=== PATIENT | female | born 1970 | race Caucasian/White ===

== ENCOUNTER 2018-07-27 17:09 | Emergency (ER) | payer OTHER ==
--- NOTE | 2018-07-27 19:07 | RAD REPORT ---
EXAM DESCRIPTION: Isabel Single View07/27/2018 6:19 pm CLINICAL HISTORY: sob COMPARISON: September 2017 FINDINGS: The lungs appear clear of acute infiltrate. The heart is normal size IMPRESSION: No acute abnormalities displayed
[2018-07-27 19:13] LABS: Absolute Monocytes 0.6 K/uL (0.1-1.3); Absolute Neutrophil 5.2 K/uL (1.8-8.0); Basophils % 0.4 % (0-1.3); Eosinophils % 2.2 % (0-4.4); Hematocrit 36.9 % (36.0-45.0); Lymphocytes % 25.3 % (15.3-44.8); MCH 29.6 pg (27.0-35.0); MCV 88.2 fL (80-100); Monocytes % 7.2 % (3.3-12.3); RBC Red Blood Cell Count 4.18 M/uL (3.86-4.86)
[2018-07-27 19:14] LABS: Protime INR 1.1
[2018-07-27 19:16] LABS: ALT/SGPT 15 U/L (12-78); AST/SGOT 19 U/L (15-37); Albumin 4.1 g/dL (3.4-5.0); Alkaline Phosphatase 126 U/L (45-117); BUN Blood Urea Nitrogen 18 mg/dL (7-18); Bicarbonate 24 mmol/L (21-32); Bilirubin Direct < 0.1 mg/dL (0-0.2); Bilirubin Total 0.3 mg/dL (0.2-1.0); Glucose Level 77 mg/dL (74-106); Magnesium 2.3 mg/dL (1.8-2.4); NT PRO-BNP 313 pg/mL (<125); Potassium 3.4 mmol/L (3.5-5.1); Protein, Total 8.2 g/dL (6.4-8.2); Sodium Level 144 mmol/L (136-145); T3 Free 2.24 pg/mL (2.18-3.98); Thyroid Stimulating Hormone 0.475 uIU/mL (0.360-3.740); Troponin (Emerg Dept Use Only) < 0.02 ng/mL (0.0-0.045)
[2018-07-27] MEDS ORDERED: FENTANYL CITR 100 MCG/2 ML ONE (19:51)
[2018-07-27] MEDS ORDERED: POTASSIUM 25 MEQ EFFERV TAB ONE (20:13)
--- NOTE | 2018-07-27 20:27 | EDPHYS ---
Physician Documentation [facility] Name: Betsy Waldron Age: 48 yrs Sex: Female : 1970 Arrival Date: 07/27/2018 Time: 17:11 Bed 15 Private MD: ED Physician Kyle Rowland HPI: 07/27 17:40 This 48 yrs old Female presents to ER via Ambulatory with complaints of cp Dizziness, Shortness Of Breath. 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 - Hysterectomy la1 Historical: - Allergies: 17:18 Avelox; la1 - Home Meds: 17:25 clonazepam 2 mg oral tab 1 tab 4 times a day [Active]; oxycodone 10 mg oral tab 1 tab hb three times a day [Active]; fentanyl 25 mcg/hr Topical pt72 1 patch every 72 hours [Active]; tizanidine 4 mg oral tab 1 tab daily [Active]; - PMHx: 17:18 Bipolar disorder; Depression; Seizures; la1 17:25 Irregular heart rate; Chronic pain; Kidney stones; Endometrosis; hb - PSHx: 17:25 breast surgery; tummy tuck; gastric sleeve; Hysterectomy; back surgery; breast hb implants; Knee surgery; Thigh lift; - Immunization history:: Adult Immunizations up to date. - Social history:: Smoking status: Patient/guardian denies using tobacco. - Ebola Screening: : No symptoms or risks identified at this time. ROS: 17:45 Constitutional: Negative for body aches, chills, fever, poor PO intake. cp 17:45 Eyes: Negative for injury, pain, redness, and discharge. cp Exam: 17:52 Constitutional: The patient appears in no acute distress, alert, awake, cp non-diaphoretic, non-toxic, well developed, well nourished. 17:52 Head/Face: Normocephalic, atraumatic. cp Vital Signs: 17:18 BP 134 / 83; Pulse 85; Resp 16; Temp 97.2; Pulse Ox 98% on R/A; Weight 56.7 kg; Height la1 5 ft. 2 in. (157.48 cm); 18:18 BP 155 / 79; Pulse 70; Resp 18; Pulse Ox 100% on R/A; rb1 19:02 BP 146 / 83 LA Supine; Pulse 75; Resp 13; Pulse Ox 100% on R/A; jb4 19:04 BP 143 / 86 LA Sitting; Pulse 66; Resp 16 S; Pulse Ox 100% on R/A; jb4 19:06 BP 149 / 99 LA Standing; Pulse 82; Resp 18 S; Pulse Ox 99% on R/A; jb4 19:58 BP 136 / 89; Pulse 67; Resp 16; Pulse Ox 100% on R/A; mt 20:30 BP 135 / 86; Pulse 62; Resp 16; Pulse Ox 100% on R/A; jb4 17:18 Body Mass Index 22.86 (56.70 kg, 157.48 cm) la1 MDM: 17:26 Patient medically screened. cp 20:25 Data reviewed: vital signs, nurses notes, lab test result(s), EKG, radiologic studies, cp plain films, I have discussed the patient's presentation/case with the attending Emergency Department Physician; and as a result, I will discharge patient. 07/27 17:44 Order name: Influenza Screen (a \T\ B); Complete Time: 19:46 cp 07/27 19:46 Interpretation: Reviewed. cp 07/27 17:44 Order name: Strep; Complete Time: 19:46 cp 07/27 19:46 Interpretation: Reviewed. 07/27 17:52 Order name: Basic Metabolic Panel; Complete Time: 19:35 cp 07/27 19:35 Interpretation: Normal except: K 3.4; CL 109; GFR 44. cp 07/27 17:52 Order name: CBC with Diff; Complete Time: 19:35 cp 07/27 17:52 Order name: LFT's; Complete Time: 19:35 cp 07/27 19:35 Interpretation: Normal except: ALK 126; GLOB 4.1; A/G 1.0. cp 07/27 17:52 Order name: Magnesium; Complete Time: 19:35 cp 07/27 17:52 Order name: NT PRO-BNP; Complete Time: 19:35 cp 07/27 19:47 Interpretation: Abnormal: NT PRO-BNP 313. cp 07/27 17:52 Order name: PT-INR; Complete Time: 19:35 cp 07/27 17:52 Order name: Troponin (emerg Dept Use Only); Complete Time: 19:35 cp 07/27 18:36 Order name: T3 Free; Complete Time: 19:35 hb 07/27 18:36 Order name: TSH; Complete Time: 19:35 hb 07/27 19:41 Order name: Throat Culture [facility] 07/27 20:39 Order name: Urine Dipstick--Ancillary (enter results) mw2 07/27 20:40 Order name: Urine Dipstick-Ancillary [facility] 07/27 17:52 Order name: XRAY Chest (1 view); Complete Time: 19:35 cp 07/27 17:52 Order name: EKG; Complete Time: 17:52 cp 07/27 17:52 Order name: Cardiac monitoring; Complete Time: 18:06 cp 07/27 17:52 Order name: EKG - Nurse/Tech; Complete Time: 18:45 cp 07/27 17:52 Order name: IV Saline Lock; Complete Time: 18:43 cp 07/27 17:52 Order name: Labs collected and sent; Complete Time: 18:43 cp 07/27 17:52 Order name: O2 Per Protocol; Complete Time: 18:06 cp 07/27 17:52 Order name: O2 Sat Monitoring; Complete Time: 18:06 cp 07/27 17:53 Order name: Orthostatics; Complete Time: 19:31 cp 07/27 17:53 Order name: Urine Dipstick-Ancillary (obtain specimen); Complete Time: 20:47 cp Administered Medications: 18:51 Not Given (Patient Refused): Tylenol 650 mg PO once rb1 19:59 Drug: fentaNYL (PF) 25 mcg Route: IVP; Site: right wrist; jb4 20:05 Drug: Potassium Effervescent Tablet 25 mEq Route: PO; jb4 Disposition: 07/28 06:30 Co-signature as Attending Physician, Kyle Rowland MD. pkl Disposition: 07/27/18 20:26 Discharged to Home. Impression: Acute upper respiratory infection, unspecified, Shortness of breath. - Condition is Stable. - Discharge Instructions: Shortness of Breath, Upper Respiratory Infection, Adult. - Prescriptions for Tessalon Perles 100 mg Oral Capsule - take 1 capsule by ORAL route every 8 hours As needed; 15 capsule. Albuterol Sulfate 90 mcg/actuation - inhale 1-2 puff by INHALATION route every 4-6 hours; 1 Inhaler. - Medication Reconciliation Form, Thank You Letter, Antibiotic Education, Prescription Opioid Use form. - Follow up: Kvng Patricio MD; When: 07/31/2018; Reason: Recheck today's complaints. - Problem is an ongoing problem. - Symptoms have improved. Signatures: Dispatcher [employer] Kyle Greenwood MD MD pkl Attema, Lee RN RN la1 Aydin Núñez PA PA cp Christel Saldana, RN RN Glenn Noel RN RN jb4 Saar Rodas RN rb1 Corrections: (The following items were deleted from the chart) 07/27 19:38 17:53 Urine Test ordered. cp jb4 20:27 20:26 07/27/2018 20:26 Discharged to Home. Impression: Acute upper respiratory cp infection, unspecified. Condition is Stable. Forms are Medication Reconciliation Form, Thank You Letter, Antibiotic Education, Prescription Opioid Use. Follow up: Kvng Patricio; When: 07/31/2018; Reason: Recheck today's complaints. Problem is an ongoing problem. Symptoms have improved. cp 20:47 20:27 07/27/2018 20:26 Discharged to Home. Impression: Acute upper respiratory jb4 infection, unspecified; Shortness of breath. Condition is Stable. Discharge Instructions: Upper Respiratory Infection, Adult. Prescriptions for Tessalon Perles 100 mg Oral Capsule - take 1 capsule by ORAL route every 8 hours As needed; 15 capsule, Albuterol Sulfate 90 mcg/actuation - inhale 1-2 puff by INHALATION route every 4-6 hours; 1 Inhaler. and Forms are Medication Reconciliation Form, Thank You Letter, Antibiotic Education, Prescription Opioid Use. Follow up: Kvng Patricio; When: 07/31/2018; Reason: Recheck today's complaints. Problem is an ongoing problem. Symptoms have improved. cp
--- NOTE | 2018-07-27 20:27 | ER ---
Nurse's Notes [facility] Name: Betsy Waldron Age: 48 yrs Sex: Female : 1970 Arrival Date: 07/27/2018 Time: 17:11 Bed 15 Private MD: Diagnosis: Acute upper respiratory infection, unspecified;Shortness of breath Presentation: 07/27 17:17 Presenting complaint: Patient states: I feel like I have no energy and I feel SOB, My la1 resting HR is in the 40s sometimes and I have a halter monitor on now. Transition of care: patient was received from another setting of care (hospital). Onset of symptoms was July 27, 2018. Risk Assessment: Do you want to hurt yourself or someone else? Patient reports no desire to harm self or others. Initial Sepsis Screen: Does the patient meet any 2 criteria? No. Patient's initial sepsis screen is negative. Does the patient have a suspected source of infection? No. Patient's initial sepsis screen is negative. Care prior to arrival: None. 17:17 Method Of Arrival: Ambulatory la1 17:17 Acuity: MORA 3 la1 Triage Assessment: 17:25 Respiratory: the patient has mild shortness of breath. 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 la1 Historical: - Allergies: 17:18 Avelox; la1 - Home Meds: 17:25 clonazepam 2 mg oral tab 1 tab 4 times a day [Active]; oxycodone 10 mg oral tab 1 tab hb three times a day [Active]; fentanyl 25 mcg/hr Topical pt72 1 patch every 72 hours [Active]; tizanidine 4 mg oral tab 1 tab daily [Active]; - PMHx: 17:18 Bipolar disorder; Depression; Seizures; la1 17:25 Irregular heart rate; Chronic pain; Kidney stones; Endometrosis; hb - PSHx: 17:25 breast surgery; tummy tuck; gastric sleeve; Hysterectomy; back surgery; breast hb implants; Knee surgery; Thigh lift; - Immunization history:: Adult Immunizations up to date. - Social history:: Smoking status: Patient/guardian denies using tobacco. - Ebola Screening: : No symptoms or risks identified at this time. Screenin:25 Abuse screen: Denies threats or abuse. Nutritional screening: No deficits noted. hb Tuberculosis screening: No symptoms or risk factors identified. Fall Risk None identified. Assessment: 17:25 General: Appears in no apparent distress. comfortable, Behavior is calm, cooperative, hb Denies fever. General: Pt. had center chest pain earlier today, but denies having pain at this time. Pain: Denies pain. Neuro: Level of Consciousness is awake, alert, obeys commands, Oriented to person, place, time, situation. Neuro: Reports dizziness, weakness. Cardiovascular: Rhythm is sinus rhythm. Respiratory: Reports shortness of breath at rest cough that is non-productive, Airway is patent Respiratory effort is even, unlabored, Respiratory pattern is regular, symmetrical, Breath sounds are clear bilaterally. GI: No signs and/or symptoms were reported involving the gastrointestinal system. : No signs and/or symptoms were reported regarding the genitourinary system. Derm: Skin is pink, warm \T\ dry. Musculoskeletal: Range of motion: intact in all extremities. 17:25 Cardiovascular: Reports Pt. is currently wearing a heart halter ordered by Dr. Patricio. hb 18:20 Reassessment: Patient appears in no apparent distress at this time. Patient and/or rb1 family updated on plan of care and expected duration. Pain level reassessed. Patient is alert, oriented x 3, equal unlabored respirations, skin warm/dry/pink. at bedside. 19:00 Reassessment: Patient appears in no apparent distress at this time. Patient and/or jb4 family updated on plan of care and expected duration. Pain level reassessed. Patient is alert, oriented x 3, equal unlabored respirations, skin warm/dry/pink. Cardiovascular: Patient's skin is warm and dry. Respiratory: Airway is patent Respiratory effort is even, unlabored, Respiratory pattern is regular, symmetrical. 20:00 Reassessment: Patient appears in no apparent distress at this time. Patient and/or jb4 family updated on plan of care and expected duration. Pain level reassessed. Patient is alert, oriented x 3, equal unlabored respirations, skin warm/dry/pink. Vital Signs: 17:18 BP 134 / 83; Pulse 85; Resp 16; Temp 97.2; Pulse Ox 98% on R/A; Weight 56.7 kg; Height la1 5 ft. 2 in. (157.48 cm); 18:18 BP 155 / 79; Pulse 70; Resp 18; Pulse Ox 100% on R/A; rb1 19:02 BP 146 / 83 LA Supine; Pulse 75; Resp 13; Pulse Ox 100% on R/A; jb4 19:04 BP 143 / 86 LA Sitting; Pulse 66; Resp 16 S; Pulse Ox 100% on R/A; jb4 19:06 BP 149 / 99 LA Standing; Pulse 82; Resp 18 S; Pulse Ox 99% on R/A; jb4 19:58 BP 136 / 89; Pulse 67; Resp 16; Pulse Ox 100% on R/A; mt 20:30 BP 135 / 86; Pulse 62; Resp 16; Pulse Ox 100% on R/A; jb4 17:18 Body Mass Index 22.86 (56.70 kg, 157.48 cm) la1 ED Course: 17:11 Patient arrived in ED. as 17:18 Triage completed. la1 17:18 Arm band placed on right wrist. la1 17:25 Patient has correct armband on for positive identification. Bed in low position. Call hb light in reach. Side rails up X 1. tree farmer on. Pulse ox on. NIBP on. Warm blanket given. 17:26 Aydin Núñez PA is PHCP. cp 17:26 Mani Jacinto MD is Attending Physician. cp 17:42 Christel Saldana RN is Primary Nurse. hb 18:19 XRAY Chest (1 view) In Process Unspecified. EDMS 18:45 EKG done, by ED staff, reviewed by Mani Jacinto MD. ds4 19:00 Report given to FLETCHER Hudson. rb1 19:47 Kyle Rowland MD is Attending Physician. cp 20:25 Kvng Patricio MD is Referral Physician. cp 20:30 No provider procedures requiring assistance completed. IV discontinued, intact, jb4 bleeding controlled. Administered Medications: 18:51 Not Given (Patient Refused): Tylenol 650 mg PO once rb1 19:59 Drug: fentaNYL (PF) 25 mcg Route: IVP; Site: right wrist; jb4 20:05 Drug: Potassium Effervescent Tablet 25 mEq Route: PO; jb4 Outcome: 20:26 Discharge ordered by . cp 20:30 Discharged to home ambulatory. jb4 20:30 Condition: stable 20:30 Discharge instructions given to patient, family, Instructed on discharge instructions, follow up and referral plans. medication usage, Demonstrated understanding of instructions, follow-up care, medications, Prescriptions given X 2. 20:47 Patient left the ED. jb4 Signatures: Dispatcher [employer] EDLaurie Rowe Donovan ds4 Emigdio Mendoza, RN RN la1 Aydin Núñez PA PA cp Barber, Rebecca, RN RN rb1 Christel Saldana RN RN Glenn Noel RN RN jb4 Lary Acevedo ma
[2018-07-27 21:25] VITALS: TEMP 97.2
[2018-07-27 21:31] LABS: Urine Blood NEGATIVE (NEG); Urine Glucose NEGATIVE (NEG); Urine Protein NEGATIVE (NEG); Urine Specific Gravity <1.005 (1.005-1.030); Urine pH 5.5 (5.0-7.0)
[2018-07-27 21:32] VITALS: BP 136/89; O2SAT 100
--- NOTE | 2018-07-28 06:06 | EKG ---
Test Date: 2018-07-27 Test Time: 18:40:29 Sales Support Specialist: EMY MEASUREMENT RESULTS: Intervals: Rate: 61 TN: 182 QRSD: 98 QT: 430 QTc: 432 [place]: P: 51 TN: 182 QRS: 61 T: 41 INTERPRETIVE STATEMENTS: Normal sinus rhythm T wave abnormality, consider anterior ischemia Abnormal ECG Compared to ECG 10/04/2017 21:51:42 T-wave abnormality now present Possible ischemia now present Prolonged QT interval no longer present Electronically Signed On 07-28-18 06:06:03 BUNCHER MACHINE by Maurisio Clark
== END 2018-07-27 20:47 | disposition home or self-care (01) ==
LOC: ER 17:09
DX: J06.9 Acute upper respiratory infection, unspecified (principal); F31.9 Bipolar disorder, unspecified; F32.9 Major depressive disorder, single episode, unspecified; Z88.8 Allergy status to other drugs, medicaments and biological substances; Z98.82 Breast implant status
CPT/HCPCS: 36415; 71045; 80048; 80076; 81003; 83735; 83880; 84443; 84481; 84484; 85025; 85610; 87070; 87081; 87804; 93005; 96374; 99284; J3010

== ENCOUNTER 2018-08-08 09:11 | Day surgery (SDC) | payer OTHER ==
[2018-08-07 14:43] LABS: Protime INR 1.16
[2018-08-08] MEDS ORDERED: NA CHLORIDE 0.9% 500 ML ONE (09:45)
[2018-08-08] MEDS ORDERED: HEPA 1000U/500MLS 1,000 UNIT/500 ML BAG IV ONE ×2 (12:43→12:59)
[2018-08-08] MEDS ORDERED: ATROPINE SULF 1 MG/10 ML SYR IV ONE (12:58)
[2018-08-08] MEDS ORDERED: MIDAZOLAM HCL 2 MG/2 ML INJ ONE ×3 (12:58→13:25)
[2018-08-08] MEDS ORDERED: FENTANYL CITR 100 MCG/2 ML ONE ×2 (12:58→13:28)
[2018-08-08] MEDS ORDERED: NA CHLORIDE 0.9% 0 ML ONE (12:59)
[2018-08-08] MEDS ORDERED: MORPHINE 4 MG/ML SYR ONE (13:55)
[2018-08-08] MEDS ORDERED: HYDROMORPHONE HCL 1 MG/ML INJ ONE (15:04)
[2018-08-08 15:05] VITALS: TEMP 97.3
[2018-08-08 15:19] VITALS: BP 136/73
[2018-08-08 15:26] VITALS: O2SAT 90
--- NOTE | 2018-08-09 00:21 | OP ---
Surgeon: Kvng Patricio MD Dress Finisher: Мария Huggins. Total conscious sedation was 30 minutes. The patient was admitted as an outpatient to the catheterization lab on 08/08/2018. Indication: Syncope, unstable angina type of symptoms. Description Of Procedure: The patient had a 6-Argentine sheath introduced in the right common femoral a rtery. She had 150 mg of fentanyl and 12 mg of Versed for sedation, and that was only mild conscious sedation. The 6-Argentine catheters were used to do the diagnostic catheterization. She was found to have normal coronaries. No complications. Blood Loss: 5 cc. Postoperative Diagnoses: 1.Normal coronaries. 2.Syncope, possibly secondary to bradycardia. Plan: Plan is to continue her medical therapy. A peer referral for possible pacemaker. ALANNA/AD Voice ID: [id number] Report ID: [id number]
== END 2018-08-08 15:25 | disposition home or self-care (01) ==
LOC: CCL 09:11
PROC: B201YZZ Plain Radiography of Multiple Coronary Arteries using Other Contrast (ICD-10-PCS; principal; 2018-08-08)
DX: I20.0 Unstable angina (principal); R00.1 Bradycardia, unspecified; R55 Syncope and collapse
CPT/HCPCS: 36415; 85610; 85730; 93454; C1760; C1893; J0583; J1170; J2250; J3010

== ENCOUNTER 2019-07-25 22:38 | Emergency (ER) | payer OTHER, SELFPAY ==
[2019-07-25] MEDS ORDERED: LIDOCAINE VISCOUS 2% SOLN 15 ML UDC ONE (23:18)
[2019-07-26] MEDS ORDERED: HYDROCODONE/APAP 10/325 TAB ONE (00:53)
[2019-07-26 01:08] LABS: Calcium Oxalate Crystals- Ur MODERATE (NONE SEEN); Urine Bacteria <20 /HPF (<20); Urine Culture Reflex Order NOT NEEDED
--- NOTE | 2019-07-26 01:24 | ER ---
Nurse's Notes [facility] Name: Betsy Waldron Age: 49 yrs Sex: Female : 1970 Arrival Date: 07/25/2019 Time: 22:42 Bed 18 Private MD: Diagnosis: Urinary tract infection, site not specified;Vaginal fissure Presentation: 07/25 22:45 Presenting complaint: Patient states: "Since yesterday I've been having bright red cc3 vaginal bleeding and suprapubic pain". Transition of care: patient was not received from another setting of care. Onset of symptoms was July 24, 2019. Risk Assessment: Do you want to hurt yourself or someone else? Patient reports no desire to harm self or others. Initial Sepsis Screen: Does the patient meet any 2 criteria? No. Patient's initial sepsis screen is negative. Does the patient have a suspected source of infection? No. Patient's initial sepsis screen is negative. Care prior to arrival: Medication(s) given: Fentanyl patch on her left inner thigh which she put today. 22:45 Method Of Arrival: Ambulatory cc3 22:45 Acuity: MORA 3 cc3 Triage Assessment: 22:45 General: Appears in no apparent distress. comfortable, Behavior is calm, cooperative, cc3 appropriate for age. Pain: Complains of pain in suprapubic area Pain currently is 9 out of 10 on a pain scale. Quality of pain is described as aching, Pain began 1 day ago. EENT: No signs and/or symptoms were reported regarding the EENT system. Neuro: Level of Consciousness is awake, alert, obeys commands, Oriented to person, place, time, situation, Appropriate for age. Cardiovascular: Denies chest pain, Heart tones S1 S2 present Capillary refill < 3 seconds in bilateral fingers Patient's skin is warm and dry. Respiratory: Airway is patent Respiratory effort is even, unlabored, Respiratory pattern is regular, symmetrical, Breath sounds are clear bilaterally. GI: Abdomen is flat, Bowel sounds present X 4 quads. Abd is soft and non tender X 4 quads. : Reports vaginal bleeding that is bright red, since yesterday. Derm: Skin is intact, is healthy with good turgor, Skin is pink, warm \\T\\ dry. normal. Musculoskeletal: Circulation, motion, and sensation intact. Range of motion: intact in all extremities. 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 - Social history:: Smoking status: Patient/guardian denies using tobacco, never smoked. - Ebola Screening: : No symptoms or risks identified at this time. Screenin:45 Abuse screen: Denies threats or abuse. Denies injuries from another. Nutritional cc3 screening: No deficits noted. Tuberculosis screening: No symptoms or risk factors identified. Fall Risk Ambulatory Aid- None/Bed Rest/Nurse Assist (0 pts). Gait- Normal/Bed Rest/Wheelchair (0 pts) Mental Status- Oriented to own ability (0 pts). Assessment: 22:45 General: see triage assessment. Checked the patient's vaginal bleeding and no bleeding cc3 as of the moment, only minimal spots of blood on the patient's sanitary napkin noted. 23:25 Reassessment: Patient appears in no apparent distress at this time. Patient and/or cc3 family updated on plan of care and expected duration. Pain level reassessed. Patient is alert, oriented x 3, equal unlabored respirations, skin warm/dry/pink. Patient taken to ultrasound department by the cadd technician by wheelchair. 23:49 Reassessment: Patient came back from ultrasound department, awaiting result. cc3 07/26 00:31 Reassessment: Patient appears in no apparent distress at this time. Patient and/or cc3 family updated on plan of care and expected duration. Pain level reassessed. Patient is alert, oriented x 3, equal unlabored respirations, skin warm/dry/pink. 01:50 Reassessment: Patient appears in no apparent distress at this time. Patient and/or cc3 family updated on plan of care and expected duration. Pain level reassessed. Patient is alert, oriented x 3, equal unlabored respirations, skin warm/dry/pink. LAMBERTO Pina discharged the patient home with prescription given. No IV cannula in situ. Patient left ER vitally stable and ambulatory. No valuables left in the patient's room. Patient denies pain at this time. Patient states feeling better. Patient states symptoms have improved. Vital Signs: 07/25 22:45 BP 153 / 103; Pulse 93; Resp 18 S; Temp 98.4(O); Pulse Ox 99% on R/A; Pain 8/10; cc3 23:00 BP 128 / 75; Pulse 78; Resp 18 S; Pulse Ox 99% on R/A; cc3 07/26 00:24 BP 174 / 86; Pulse 88; Resp 20 S; Pulse Ox 100% on R/A; cc3 00:45 BP 149 / 76; Pulse 71; Resp 16 S; Pulse Ox 98% on R/A; cc3 01:40 BP 131 / 60; Pulse 68; Resp 18 S; Pulse Ox 98% on R/A; Pain 5/10; cc3 ED Course: 07/25 22:42 Patient arrived in ED. cl3 22:45 Patient has correct armband on for positive identification. Placed in gown. Bed in low cc3 position. Call light in reach. Side rails up X2. Pulse ox on. NIBP on. 22:45 Arm band placed on right wrist. Patient notified of wait time. cc3 22:51 [facility] Bateman [facility]-C [facility]. snw 22:51 Aydin Lopez MD is Attending Physician. snw 22:55 Mary Rivera is Primary Nurse. cc3 23:42 US Transvaginal Study (Probe) In Process Unspecified. EDMS 23:47 Triage completed. cc3 07/26 01:50 No provider procedures requiring assistance completed. Patient did not have IV access cc3 during this emergency room visit. Administered Medications: 07/25 23:30 Drug: Viscous Lidocaine Liquid (4 %) 10 ml {Note: done by chemistry quality control technician.} cc3 Route: Mucous Membrane; 07/26 00:50 Drug: Rocky 10 mg-325 mg 1 tabs {Note: RASS 0.} Route: PO; cc3 01:30 Follow up: Response: No adverse reaction; Pain is decreased; RASS: Alert and Calm (0) cc3 01:34 Drug: Rocephin (cefTRIAXone) 1 grams Route: IM; Site: left gluteus; 01:50 Follow up: Response: No adverse reaction cc3 Outcome: 01:23 Discharge ordered by . snterese 01:50 Discharged to home ambulatory. cc3 01:50 Condition: stable 01:50 Discharge instructions given to patient, Instructed on discharge instructions, follow up and referral plans. medication usage, Demonstrated understanding of instructions, follow-up care, medications, Prescriptions given X 1. 01:56 Patient left the ED. cc3 Addendum: 07/30/2019 08:49 Addendum: Culture Results: Positive urine culture. Bacteria is resistant to, has i w intermediate sensitivity, or is not tested against prescribed antibiotics. Report given to SALEEM for further evaluation and then to corporate claims examiner for follow up with patient. Phone call Attempt #1 phone is disconnected Certified letter sent to listed address for patient. Signatures: Dispatcher Glimpse EDMS Silvana Bateman, FELTMAKER-C FELTMAKER-Csnw Vanessa Barnes, Nay Falcon RN, Charlene cc3 Ally Lees cl3 Corrections: (The following items were deleted from the chart) 07/26 02:07 11 22:45 BP 153 / 103; Pulse 93bpm; Resp 18bpm; Spontaneous; Pulse Ox 99% RA; Temp cc3 98.4F Oral; cc3
--- NOTE | 2019-07-26 01:24 | EDPHYS ---
Physician Documentation [facility] Name: Betsy Waldron Age: 49 yrs Sex: Female : 1970 Arrival Date: 07/25/2019 Time: 22:42 Bed 18 Private MD: Aydin Hays HPI: 07/26 00:14 This 49 yrs old Female presents to ER via Ambulatory with complaints of snw Vaginal Bleeding, Back Pain. 00:14 The patient presents with vaginal bleeding that is light. Onset: The symptoms/episode snw began/occurred suddenly, yesterday. Associated signs and symptoms: Pertinent positives: cramping. Severity of symptoms: At their worst the symptoms were severe. The patient is not sexually active. The patient has not experienced similar symptoms in the past. It is unknown whether or not the patient has recently seen a physician. pt with chronic constipation second to pain med use, splinting to have bowel movement yesterday and pt used fingernail, several inches long, to push stool out, + small amt bright red bleeding today, stinging pain. 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 - Social history:: Smoking status: Patient/guardian denies using tobacco, never smoked. - Ebola Screening: : No symptoms or risks identified at this time. ROS: 07/26 00:14 Constitutional: Negative for fever, chills, and weight loss, Eyes: Negative for injury, snw pain, redness, and discharge, ENT: Negative for injury, pain, and discharge, Neck: Negative for injury, pain, and swelling, Cardiovascular: Negative for chest pain, palpitations, and edema, Respiratory: Negative for shortness of breath, cough, wheezing, and pleuritic chest pain, Abdomen/GI: Negative for abdominal pain, nausea, vomiting, diarrhea, and constipation, Back: Negative for injury and pain, MS/Extremity: Negative for injury and deformity, Skin: Negative for injury, rash, and discoloration, Neuro: Negative for headache, weakness, numbness, tingling, and seizure, Psych: Negative for depression, anxiety, suicide ideation, homicidal ideation, and hallucinations. : Positive for pelvic pain, vaginal bleeding. Exam: 00:13 Head/Face: Normocephalic, atraumatic. Eyes: Pupils equal round and reactive to light, snw extra-ocular motions intact. Lids and lashes normal. Conjunctiva and sclera are non-icteric and not injected. Cornea within normal limits. Periorbital areas with no swelling, redness, or edema. ENT: Nares patent. No nasal discharge, no septal abnormalities noted. Tympanic membranes are normal and external auditory canals are clear. Oropharynx with no redness, swelling, or masses, exudates, or evidence of obstruction, uvula midline. Mucous membranes moist. Neck: Trachea midline, no thyromegaly or masses palpated, and no cervical lymphadenopathy. Supple, full range of motion without nuchal rigidity, or vertebral point tenderness. No Meningismus. Chest/axilla: Normal chest wall appearance and motion. Nontender with no deformity. No lesions are appreciated. Cardiovascular: Regular rate and rhythm with a normal S1 and S2. No gallops, murmurs, or rubs. Normal PMI, no JVD. No pulse deficits. Respiratory: Lungs have equal breath sounds bilaterally, clear to auscultation and percussion. No rales, rhonchi or wheezes noted. No increased work of breathing, no retractions or nasal flaring. Abdomen/GI: Soft, non-tender, with normal bowel sounds. No distension or tympany. No guarding or rebound. No evidence of tenderness throughout. 00:13 Pelvic Exam: Normal external genitalia. scant bleeding 00:13 Skin: Warm, dry with normal turgor. Normal color with no rashes, no lesions, and no evidence of cellulitis. MS/ Extremity: Pulses equal, no cyanosis. Neurovascular intact. Full, normal range of motion. Neuro: Awake and alert, GCS 15, oriented to person, place, time, and situation. Cranial nerves II-XII grossly intact. Motor strength 5/5 in all extremities. Sensory grossly intact. Cerebellar exam normal. Normal gait. 00:13 Constitutional: The patient appears alert, awake, restless. 00:13 Back: pain, that is moderate, of the lumbar area, left low back and right low back. 00:13 Psych: Behavior/mood is anxious, Affect is animated. Vital Signs: 07/25 22:45 BP 153 / 103; Pulse 93; Resp 18 S; Temp 98.4(O); Pulse Ox 99% on R/A; Pain 8/10; cc3 23:00 BP 128 / 75; Pulse 78; Resp 18 S; Pulse Ox 99% on R/A; cc3 07/26 00:24 BP 174 / 86; Pulse 88; Resp 20 S; Pulse Ox 100% on R/A; cc3 00:45 BP 149 / 76; Pulse 71; Resp 16 S; Pulse Ox 98% on R/A; cc3 01:40 BP 131 / 60; Pulse 68; Resp 18 S; Pulse Ox 98% on R/A; Pain 5/10; cc3 MDM: 07/25 22:58 Patient medically screened. [facility] 07/26 01:24 Data reviewed: vital signs, nurses notes. Data interpreted: Pulse oximetry: on room air snw is 100 %. Interpretation: normal. Counseling: I had a detailed discussion with the patient and/or guardian regarding: the historical points, exam findings, and any diagnostic results supporting the discharge/admit diagnosis, the presence of at least one elevated blood pressure reading (>120/80) during this emergency department visit, lab results, the need for outpatient follow up, to return to the emergency department if symptoms worsen or persist or if there are any questions or concerns that arise at home. Special discussion: I have referred the patient to see his PCP for further evaluation of high blood pressure. Based on the history and exam findings, there is no indication for further emergent testing or inpatient evaluation. I discussed with the patient/guardian the need to see the primary care provider for further evaluation of the symptoms. 07/25 23:52 Order name: Urine Culture snw 07/25 23:52 Order name: Urine Microscopic Only; Complete Time: 01:21 snw 07/25 23:16 Order name: US Transvaginal Study (Probe) snw 07/26 01:06 Order name: Urine Dipstick--Ancillary (enter results); Complete Time: 02:54 sp 07/26 01:06 Order name: Test Urine - POC; Complete Time: 02:54 sp 07/25 23:52 Order name: Urine Dipstick-Ancillary (obtain specimen); Complete Time: 00:30 snw Administered Medications: 07/25 23:30 Drug: Viscous Lidocaine Liquid (4 %) 10 ml {Note: done by apprentice technician.} cc3 Route: Mucous Membrane; 07/26 00:50 Drug: [place] 10 mg-325 mg 1 tabs {Note: RASS 0.} Route: PO; cc3 01:30 Follow up: Response: No adverse reaction; Pain is decreased; RASS: Alert and Calm (0) cc3 01:34 Drug: Rocephin (cefTRIAXone) 1 grams Route: IM; Site: left gluteus; 01:50 Follow up: Response: No adverse reaction cc3 Disposition: 04:22 Co-signature as Attending Physician, Aydin Lopez MD I agree with the assessment and alize plan of care. Disposition: 07/26/19 01:23 Discharged to Home. Impression: Urinary tract infection, site not specified, Vaginal fissure. - Condition is Stable. - Discharge Instructions: Back Pain, Adult, Urinary Tract Infection, Adult, Dietary Guidelines to Help Prevent Kidney Stones, Rehydration, Adult. - Prescriptions for Augmentin 875- 125 mg Oral Tablet - take 1 tablet by ORAL route every 12 hours for 10 days; 20 tablet. - Medication Reconciliation Form, Thank You Letter, Antibiotic Education, Prescription Opioid Use form. - Follow up: Private Physician; When: 2 - 3 days; Reason: Recheck today's complaints, Continuance of care, Re-evaluation by your physician. Follow up: Emergency Department; When: As needed; Reason: Worsening of condition. Signatures: Dispatcher [employer] Aydin Jay MD MD cha Therrien, Shelly, PAINTER TOUCH UP-C PAINTER TOUCH UP-Wyattw Nay Aponte Mary Rivera cc3 Corrections: (The following items were deleted from the chart) 01:56 01:23 07/26/2019 01:23 Discharged to Home. Impression: Urinary tract infection, site cc3 not specified; Vaginal fissure. Condition is Stable. Forms are Medication Reconciliation Form, Thank You Letter, Antibiotic Education, Prescription Opioid Use. Follow up: Private Physician; When: 2 - 3 days; Reason: Recheck today's complaints, Continuance of care, Re-evaluation by your physician. Follow up: Emergency Department; When: As needed; Reason: Worsening of condition. snw
[2019-07-26] MEDS ORDERED: CEFTRIAXONE 1000 MG/VIAL ONE (01:27)
[2019-07-26] MEDS ORDERED: WATER FOR INJ,STERILE 10 ML ONE (01:27)
[2019-07-26 01:36] LABS: Urine Blood 2+ (NEG); Urine Glucose NEGATIVE (NEG); Urine Protein TRACE (NEG); Urine Specific Gravity >1.030 (1.005-1.030); Urine pH 5.5 (5.0-7.0)
[2019-07-26 02:10] VITALS: TEMP 98.4
[2019-07-26 02:12] VITALS: BP 174/86; O2SAT 100
--- NOTE | 2019-07-26 11:10 | RAD REPORT ---
EXAM DESCRIPTION: US - Transvaginal Study Probe - 07/25/2019 11:41 pm CLINICAL HISTORY: Vaginal bleeding COMPARISON: none FINDINGS: A hysterectomy has been performed Neither ovary visualized. The right and left adnexum unremarkable. No significant free fluid is seen. IMPRESSION: Hysterectomy No abnormality is displayed
== END 2019-07-26 01:56 | disposition home or self-care (01) ==
LOC: ER 22:38
DX: N39.0 Urinary tract infection, site not specified (principal); N89.8 Other specified noninflammatory disorders of vagina; Z88.8 Allergy status to other drugs, medicaments and biological substances; G89.29 Other chronic pain; R56.9 Unspecified convulsions
CPT/HCPCS: 76830; 81003; 81015; 81025; 87077; 87086; 87088; 87186; 96372; 99284

== ENCOUNTER 2020-06-02 17:43 | Emergency (ER) | payer MEDICARE, OTHER ==
[2020-06-02] MEDS ORDERED: LORazepam 2 MG/ML VIAL ONE (18:44)
[2020-06-02] MEDS ORDERED: ONDANSETRON 4 MG/2 ML VIAL ONE (18:44)
[2020-06-02] MEDS ORDERED: MORPHINE 4 MG/ML SYR ONE (18:44)
[2020-06-02 18:59] LABS: Basophils % 0.5 % (0-1.3); Hematocrit 35.1 % (36.0-45.0); Lymphocytes % 38.4 % (15.3-44.8); MPV 9.6 fL (7.6-11.3); RBC Red Blood Cell Count 4.01 M/uL (3.86-4.86)
[2020-06-02 19:16] LABS: Albumin 3.8 g/dL (3.4-5.0); Bilirubin Direct 0.1 mg/dL (0-0.2); Bilirubin Total 0.4 mg/dL (0.2-1.0); Potassium 3.5 mmol/L (3.5-5.1); Protein, Total 7.9 g/dL (6.4-8.2)
--- NOTE | 2020-06-02 19:33 | RAD REPORT ---
EXAM DESCRIPTION: CTAbdomen Pelvis W Contrast - 06/02/2020 7:02 pm CLINICAL HISTORY: Abdominal pain. lower abdominal pain, rectal bleeding COMPARISON: CT ABD PELVIS W CONTRAST dated 04/10/2015; CT ABD PELVIS W CONTRAST dated 06/25/2014; CT A BD PELVIS W CONTRAST dated 10/07/2012 TECHNIQUE: Biphasic CT imaging of the abdomen and pelvis was performed with 100 ml non-ionic IV cont rast. All CT scans are performed using dose optimization technique as appropriate and may include automated exposure control or mA/KV adjustment according to patient size. FINDINGS: The lung bases are clear.Postsurgical changes are present about the stomach and gastroesop hageal junction. Cholecystectomy clips. The liver, spleen, pancreas, adrenal glands and kidneys are within normal limits. No bowel obstruction, free air, free fluid or abscess. Significant fecal retention is noted. The appe ndix is normal. No evidence of significant lymphadenopathy. Postsurgical hardware is present lower lumbar spine. IMPRESSION: No acute intra-abdominal or pelvic finding. Significant fecal retention.
[2020-06-02 20:04] LABS: Urine Blood NEGATIVE (NEG); Urine Glucose NEGATIVE (NEG); Urine Protein NEGATIVE (NEG); Urine pH 5.5 (5.0-7.0)
[2020-06-02] MEDS ORDERED: FENTANYL CITR 100 MCG/2 ML ONE (20:15)
[2020-06-02] MEDS ORDERED: HYDROMORPHONE HCL 0.5 MG/0.5 ML INJ ONE (20:20)
--- NOTE | 2020-06-02 20:38 | EDPHYS ---
Physician Documentation [facility] Name: Betsy Waldron Age: 49 yrs Sex: Female : 1970 Arrival Date: 06/02/2020 Time: 17:47 Bed 19 Private MD: ED Physician Torrey Wooten HPI: 06/02 18:00 This 49 yrs old Female presents to ER via Ambulatory with complaints of jmm Abdominal Pain, Low Back Pain, Bloody Stools. 18:00 The patient presents with abdominal pain. Onset: The symptoms/episode began/occurred jmm acutely, just prior to arrival. The symptoms radiate to Associated signs and symptoms: Pertinent positives: constipation, Pertinent negatives: fever, vomiting. This is a 49 year old female with a history of chronic pain that presents to the ED with complaints of lower abdominal pain which radiates to her rectum with a small amount of rectal bleeding. Patient states she has been chronically constipated and this occurred while performing a bowel movement. . 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 N/A - Hysterectomy iw Historical: - Allergies: 18:02 Avelox; iw 18:02 Trazodone; iw 18:02 Azithromycin; iw - Home Meds: 18:02 clonazepam 2 mg Oral tab 1 tab 4 times a day [Active]; fentanyl 25 mcg/hr Topical pt72 iw 1 patch every 72 hours [Active]; oxycodone 10 mg Oral tab 1 tab three times a day [Active]; tizanidine 4 mg Oral tab 1 tab daily [Active]; - PMHx: 18:02 Bipolar disorder; Chronic pain; Depression; Endometrosis; Irregular heart rate; Kidney iw stones; Seizures; breast implant illness; - PSHx: 18:02 Hysterectomy; breast augmentation; back; Knee surgery; Gastric Bypass; thigh lift; iw - Immunization history:: Adult Immunizations up to date. - Social history:: Smoking status: unknown. ROS: 18:00 Constitutional: Negative for fever, chills, and weight loss, Cardiovascular: Negative jmm for chest pain, palpitations, and edema, Respiratory: Negative for shortness of breath, cough, wheezing, and pleuritic chest pain. 18:00 Abdomen/GI: Positive for abdominal pain. 18:00 All other systems are negative. Exam: 18:00 Head/Face: atraumatic. Eyes: EOMI, no conjunctival erythema appreciated Neck: [facility] Trachea midline, Supple Chest/axilla: Normal chest wall appearance and motion. Cardiovascular: Regular rate and rhythm. No edema appreciated Respiratory: Normal respirations, no respiratory distress appreciated 18:00 Back: Normal ROM Skin: General appearance color normal MS/ Extremity: Moves all extremities, no obvious deformities appreciated, no edema noted to the lower extremities Neuro: Awake and alert, normal gait Psych: Behavior is normal, Mood is normal, Patient is cooperative and pleasant 18:00 Constitutional: The patient appears alert, awake, anxious, in obvious pain, uncomfortable. 18:00 Abdomen/GI: Inspection: abdomen appears normal, Bowel sounds: normal, Palpation: soft, mild abdominal tenderness, in the suprapubic area. 20:34 Abdomen/GI: Rectal exam: rectal tone normal, hemorrhoid(s), external, without bleeding, jmm without inflammation, without thrombosis, without pain, anal fissure noted to the 8 oclock position. Vital Signs: 17:57 BP 177 / 95; Pulse 88; Resp 16 S; Temp 98.0; Pulse Ox 97% on R/A; Pain 10/10; iw 18:56 BP 147 / 76; Pulse 73; Resp 20; Pulse Ox 100% on R/A; jr10 MDM: 18:00 Patient medically screened. [facility] 20:34 Data reviewed: vital signs, nurses notes. Counseling: I had a detailed discussion with [facility] the patient and/or guardian regarding: the historical points, exam findings, and any diagnostic results supporting the discharge/admit diagnosis, lab results, radiology results, the need for outpatient follow up, to return to the emergency department if symptoms worsen or persist or if there are any questions or concerns that arise at home. 20:35 Data reviewed: lab test result(s), radiologic studies, CT scan. ED course: Patient is [facility] alert and non toxic in appearance in the ED. Patient advised to return to the ED if symptoms worsen. patient is otherwise given strict return precautions. patient understood and agrees with the plan of care. . 06/02 18:11 Order name: Basic Metabolic Panel; Complete Time: 19:18 [facility] 06/02 18:11 Order name: CBC with Diff; Complete Time: 19:02 [facility] 06/02 18:11 Order name: Hepatic Function; Complete Time: 19:18 [facility] 06/02 18:11 Order name: Lipase; Complete Time: 19:18 [facility] 06/02 19:44 Order name: Urine Dipstick--Ancillary (enter results) 06/02 19:44 Order name: Urine --Ancillary (enter results) 06/02 18:11 Order name: CT Abd/Pelvis - IV Contrast Only; Complete Time: 19:45 [facility] 06/02 19:45 Order name: Urine Dipstick-Ancillary; Complete Time: 20:29 [facility] 06/02 19:45 Order name: Urine --Ancillary; Complete Time: 20:29 [facility] 06/02 18:11 Order name: IV Saline Lock; Complete Time: 18:55 [facility] 06/02 18:11 Order name: Labs collected and sent; Complete Time: 18:55 [facility] 06/02 18:11 Order name: Urine Dipstick-Ancillary (obtain specimen); Complete Time: 18:19 [facility] Administered Medications: 18:54 Drug: Zofran (Ondansetron) 4 mg Route: IVP; Site: right forearm; [facility] 19:30 Follow up: Response: No adverse reaction ea 18:55 Drug: Ativan 1 mg Route: IVP; Site: right forearm; [facility] 19:30 Follow up: Response: No adverse reaction ea 18:55 Drug: morphine 4 mg Route: IVP; Site: right forearm; [facility] 19:30 Follow up: Response: No adverse reaction ea 20:15 Drug: Dilaudid 0.5 mg Route: IVP; Site: right wrist; 20:35 Follow up: Response: No adverse reaction; Pain is decreased; RASS: Alert and Calm (0) ea 20:32 CANCELLED (Other Intervention Used): fentaNYL (PF) 25 mcg IVP once; RASS on ADMIN: vc Combtv4, Very Agttd3, Agttd2, Rstlss1, AlertClm0, Drwsy-1, Lt Sdtn-2, Mod Sdtn-3, Dp Sdtn-4, UnArsble-5 Disposition: 06/03 07:35 Co-signature as Attending Physician, Torrey Wooten MD. rn Disposition: 06/02/20 20:37 Discharged to Home. Impression: Acute anal fissure. - Condition is Stable. - Discharge Instructions: Anal Fissure, Adult. - Prescriptions for Colace 100 mg Oral Tablet - take 1 tablet by ORAL route every 12 hours; 14 tablet. Dulcolax 10 mg Rectal Suppository - insert 1 suppository by RECTAL route every 6 hours As needed; 10 suppository. Miralax 17 gram/dose Oral - take 1 packet by ORAL route once daily dilute powder in 8 ounces of water or juice; 1 bottle. - Medication Reconciliation Form, Thank You Letter, Antibiotic Education, Prescription Opioid Use form. - Follow up: Private Physician; When: 2 - 3 days; Reason: Recheck today's complaints, Continuance of care, Re-evaluation by your physician. Signatures: Dispatcher [employer] EDMS Cassius Isidro PA PA jmm Williams, Irene, RN Torrey Radford MD MD rn Antunez, Elena RN María Booth ea RN Sofia Montero vc, RN RN jr10 Corrections: (The following items were deleted from the chart) 06/02 20:32 19:43 fentaNYL (PF) 25 mcg IVP once; RASS on ADMIN: Combtv4, Very Agttd3, Agttd2, vc Rstlss1, AlertClm0, Drwsy-1, Lt Sdtn-2, Mod Sdtn-3, Dp Sdtn-4, UnArsble-5 ordered. vc 21:02 20:37 06/02/2020 20:37 Discharged to Home. Impression: Acute anal fissure. Condition is ea Stable. Forms are Medication Reconciliation Form, Thank You Letter, Antibiotic Education, Prescription Opioid Use. Follow up: Private Physician; When: 2 - 3 days; Reason: Recheck today's complaints, Continuance of care, Re-evaluation by your physician. rajat
--- NOTE | 2020-06-02 20:38 | ER ---
Nurse's Notes [facility] Name: Betsy Waldron Age: 49 yrs Sex: Female : 1970 Arrival Date: 06/02/2020 Time: 17:47 Bed 19 Private MD: Diagnosis: Acute anal fissure Presentation: 06/02 17:57 Chief complaint: Patient states: was having a hard time having a BM about 2 hours ago, iw was straining and started having abd pain and back pain, had some blood when she wiped, has hx of constipation due to being on pain meds. Coronavirus screen: At this time, the client does not indicate any symptoms associated with coronavirus-19. Ebola Screen: Patient negative for fever greater than or equal to 101.5 degrees Fahrenheit, and additional compatible Ebola Virus Disease symptoms Patient denies exposure to infectious person. Patient denies travel to an Ebola-affected area in the 21 days before illness onset. No symptoms or risks identified at this time. Initial Sepsis Screen: Does the patient meet any 2 criteria? No. Patient's initial sepsis screen is negative. Does the patient have a suspected source of infection? No. Patient's initial sepsis screen is negative. Risk Assessment: Do you want to hurt yourself or someone else? Patient reports no desire to harm self or others. Onset of symptoms was June 02, 2020. 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 LMP N/A - Hysterectomy iw Historical: - Allergies: 18:02 Avelox; iw 18:02 Trazodone; iw 18:02 Azithromycin; iw - Home Meds: 18:02 clonazepam 2 mg Oral tab 1 tab 4 times a day [Active]; fentanyl 25 mcg/hr Topical pt72 iw 1 patch every 72 hours [Active]; oxycodone 10 mg Oral tab 1 tab three times a day [Active]; tizanidine 4 mg Oral tab 1 tab daily [Active]; - PMHx: 18:02 Bipolar disorder; Chronic pain; Depression; Endometrosis; Irregular heart rate; Kidney iw stones; Seizures; breast implant illness; - PSHx: 18:02 Hysterectomy; breast augmentation; back; Knee surgery; Gastric Bypass; thigh lift; iw - Immunization history:: Adult Immunizations up to date. - Social history:: Smoking status: unknown. Screenin:57 Abuse screen: Denies threats or abuse. Denies injuries from another. Nutritional jr10 screening: No deficits noted. Tuberculosis screening: No symptoms or risk factors identified. Fall Risk IV access (20 points). Assessment: 18:57 General: Appears uncomfortable, Behavior is anxious, restless. Pain: Complains of pain jr10 in right lower quadrant and left lower quadrant Pain radiates to low back area and left low back Pain currently is 9 out of 10 on a pain scale. Quality of pain is described as aching, radiating. Neuro: No deficits noted. Cardiovascular: No deficits noted. Denies chest pain. Respiratory: No deficits noted. Airway is patent Respiratory effort is even, unlabored, Respiratory pattern is regular, symmetrical, Breath sounds are clear bilaterally. GI: Abdomen is non-distended, Bowel sounds hyperactive in right upper quadrant, left upper quadrant, right lower quadrant and left lower quadrant Abd is soft X 4 quads Abdomen is tender to palpation X 4 quads. Guarding noted Reports lower abdominal pain, bloating, constipation, cramping, rectal bleeding, nausea, Patient currently denies diarrhea. : No deficits noted. No signs and/or symptoms were reported regarding the genitourinary system. : Reports pain in lower back urgency, Denies burning with urination, discharge, inability to void, incontinence. EENT: No deficits noted. No signs and/or symptoms were reported regarding the EENT system. Derm: No deficits noted. No signs and/or symptoms reported regarding the dermatologic system. Musculoskeletal: No deficits noted. No signs and/or symptoms reported regarding the musculoskeletal system. 20:58 Reassessment: Patient and/or family updated on plan of care and expected duration. Pain ea level reassessed. Patient is alert, oriented x 3, equal unlabored respirations, skin warm/dry/pink. Discharge instruction given to patient, verbalized the understanding of instruction. Pt left ED ambulatory pt tolerating well. awaiting in lobby. Vital Signs: 17:57 BP 177 / 95; Pulse 88; Resp 16 S; Temp 98.0; Pulse Ox 97% on R/A; Pain 10/10; iw 18:56 BP 147 / 76; Pulse 73; Resp 20; Pulse Ox 100% on R/A; jr10 ED Course: 17:47 Patient arrived in ED. ag5 17:51 Cassius Isidro PA is PHCP. [facility] 17:51 Torrey Wooten MD is Attending Physician. [facility] 18:00 Triage completed. iw 18:02 Arm band placed on. iw 18:34 Sofia Remy, FLETCHER is Primary Nurse. jr10 18:45 Patient has correct armband on for positive identification. Bed in low position. Call jr10 light in reach. Side rails up X2. Pulse ox on. NIBP on. 18:55 No provider procedures requiring assistance completed. Inserted saline lock: 20 gauge jr10 in right forearm, using aseptic technique. IV is patent, is intact, with good blood return, Flushed. 19:02 CT Abd/Pelvis - IV Contrast Only In Process Unspecified. EDMS 19:15 Report given to FLETCHER Daniel. jr10 20:50 IV discontinued, intact, bleeding controlled, No redness/swelling at site. Pressure ea dressing applied. Administered Medications: 18:54 Drug: Zofran (Ondansetron) 4 mg Route: IVP; Site: right forearm; jr10 19:30 Follow up: Response: No adverse reaction ea 18:55 Drug: Ativan 1 mg Route: IVP; Site: right forearm; jr10 19:30 Follow up: Response: No adverse reaction ea 18:55 Drug: morphine 4 mg Route: IVP; Site: right forearm; jr10 19:30 Follow up: Response: No adverse reaction ea 20:15 Drug: Dilaudid 0.5 mg Route: IVP; Site: right wrist; vc 20:35 Follow up: Response: No adverse reaction; Pain is decreased; RASS: Alert and Calm (0) ea 20:32 CANCELLED (Other Intervention Used): fentaNYL (PF) 25 mcg IVP once; RASS on ADMIN: vc Combtv4, Very Agttd3, Agttd2, Rstlss1, AlertClm0, Drwsy-1, Lt Sdtn-2, Mod Sdtn-3, Dp Sdtn-4, UnArsble-5 Outcome: 20:37 Discharge ordered by . [facility] 21:01 Discharged to home ambulatory, with family. ea 21:01 Condition: stable 21:01 Discharge instructions given to patient, Instructed on discharge instructions, follow up and referral plans. medication usage, Demonstrated understanding of instructions, follow-up care, medications, Prescriptions given X 3. 21:02 Patient left the ED. ea Signatures: Dispatcher [employer] EDMS Cassius Isidro PA PA jmm Williams, Irene, RN RN Marissa Bishop RN RN Nasrin Sewell ag5 María Best RN RN vc Rivera, Jessica RN FLETCHER jr10
[2020-06-02 21:37] VITALS: BP 177/95; TEMP 98; O2SAT 97
[2020-06-02] MEDS ORDERED: IBUPROFEN 100 MG/5 ML UCUP ONE (22:38)
== END 2020-06-02 21:02 | disposition home or self-care (01) ==
LOC: ER 17:43
DX: K60.0 Acute anal fissure (principal); F31.9 Bipolar disorder, unspecified; G40.909 Epilepsy, unspecified, not intractable, without status epilepticus; Z98.84 Bariatric surgery status; Z98.82 Breast implant status; Z88.1 Allergy status to other antibiotic agents; Z88.5 Allergy status to narcotic agent; Z88.8 Allergy status to other drugs, medicaments and biological substances
CPT/HCPCS: 36415; 74177; 80048; 80076; 81003; 81025; 82565; 83690; 85025; 99284; J1170; J2405; J3010; Q9967

== ENCOUNTER 2020-07-21 18:33 | Emergency (ER) | payer MEDICARE ==
--- NOTE | 2020-07-21 19:18 | ER ---
Nurse's Notes [facility] Name: Betsy Waldron Age: 50 yrs Sex: Female : 1970 Arrival Date: 07/21/2020 Time: 18:37 Bed 2 Private MD: Diagnosis: Insomnia Presentation: 07/21 18:48 Chief complaint: Patient states: Cant sleep for 3 days. Very stressed lately. ll1 Coronavirus screen: Client denies travel out of the [place] in the last 14 days. At this time, the client does not indicate any symptoms associated with coronavirus-19. Ebola Screen: Patient denies travel to an Ebola-affected area in the 21 days before illness onset. Initial Sepsis Screen: Does the patient meet any 2 criteria? No. Patient's initial sepsis screen is negative. Does the patient have a suspected source of infection? No. Patient's initial sepsis screen is negative. Risk Assessment: Do you want to hurt yourself or someone else? Patient reports no desire to harm self or others. Onset of symptoms was July 18, 2020. 18:48 Method Of Arrival: Ambulatory ll1 18:48 Acuity: MORA 3 ll1 Historical: - Allergies: 18:50 Avelox; ll1 18:50 Azithromycin; ll1 18:50 Trazodone; ll1 - PMHx: 18:50 breast implant illness; Bipolar disorder; Chronic pain; Depression; Endometrosis; ll1 Irregular heart rate; Kidney stones; Seizures; - PSHx: 18:50 Hysterectomy; breast augmentation; back; Knee surgery; Gastric Bypass; thigh lift; ll1 - Immunization history:: Flu vaccine is not up to date. - Social history:: Smoking status: Patient denies any tobacco usage or history of. Screenin:13 Abuse screen: Denies threats or abuse. Denies injuries from another. Nutritional rv screening: No deficits noted. Tuberculosis screening: No symptoms or risk factors identified. Fall Risk None identified. Assessment: 19:12 General: Appears well groomed, Behavior is anxious. Pain: Denies pain. Neuro: Level of rv Consciousness is awake, alert, obeys commands, Oriented to person, place, time, situation. Cardiovascular: Patient's skin is warm and dry. Respiratory: Airway is patent Respiratory effort is even, unlabored, Breath sounds are clear bilaterally. Derm: Skin is intact. Vital Signs: 18:48 BP 147 / 100; Pulse 88; Resp 18; Temp 99.1; Pulse Ox 100% ; Weight 47.63 kg; Height 5 ll1 ft. 1 in. (154.94 cm); Pain 0/10; 18:48 Body Mass Index 19.84 (47.63 kg, 154.94 cm) ll1 ED Course: 18:37 Patient arrived in ED. ds1 18:49 Triage completed. ll1 18:50 Arm band placed on Patient placed in an exam room, on a stretcher. ll1 19:06 Kyle Rowland MD is Attending Physician. pkl 19:07 Spencer Bean, RN is Primary Nurse. rv 19:13 Patient has correct armband on for positive identification. Pulse ox on. NIBP on. rv 19:13 No provider procedures requiring assistance completed. Patient did not have IV access rv during this emergency room visit. Administered Medications: No medications were administered Outcome: 19:14 Discharged to home ambulatory. rv 19:14 Condition: good 19:18 Discharge ordered by . pkl 19:24 Discharge instructions given to patient, Instructed on discharge instructions, follow rv up and referral plans. medication usage, Demonstrated understanding of instructions, follow-up care, medications, Prescriptions given X 1. 19:24 Patient left the ED. rv Signatures: Kyle Rowland MD MD [facility] Belia Garcia ds1 Spencer Bean, RN RN rv Nestor Lees RN RN ll1
--- NOTE | 2020-07-21 19:19 | EDPHYS ---
Physician Documentation [facility] Name: Betsy Waldron Age: 50 yrs Sex: Female : 1970 Arrival Date: 07/21/2020 Time: 18:37 Bed 2 Private MD: ED Physician Kyle Rowland HPI: 07/21 19:13 This 50 yrs old Female presents to ER via Ambulatory with complaints of Cant pkl Sleep. 19:13 Patient said she has been having difficulty sleeping for the past 3 days. pkl Historical: - Allergies: 18:50 Avelox; ll1 18:50 Azithromycin; ll1 18:50 Trazodone; ll1 - PMHx: 18:50 breast implant illness; Bipolar disorder; Chronic pain; Depression; Endometrosis; ll1 Irregular heart rate; Kidney stones; Seizures; - PSHx: 18:50 Hysterectomy; breast augmentation; back; Knee surgery; Gastric Bypass; thigh lift; ll1 - Immunization history:: Flu vaccine is not up to date. - Social history:: Smoking status: Patient denies any tobacco usage or history of. ROS: 19:13 Eyes: Negative for injury, pain, redness, and discharge, ENT: Negative for injury, pkl pain, and discharge, Neck: Negative for injury, pain, and swelling, Cardiovascular: Negative for chest pain, palpitations, and edema, Respiratory: Negative for shortness of breath, cough, wheezing, and pleuritic chest pain, Abdomen/GI: Negative for abdominal pain, nausea, vomiting, diarrhea, and constipation, Back: Negative for injury and pain, : Negative for injury, bleeding, discharge, and swelling, MS/Extremity: Negative for injury and deformity, Skin: Negative for injury, rash, and discoloration, Neuro: Negative for headache, weakness, numbness, tingling, and seizure. Exam: 19:13 Head/Face: Normocephalic, atraumatic. Eyes: Pupils equal round and reactive to light, pkl extra-ocular motions intact. Lids and lashes normal. Conjunctiva and sclera are non-icteric and not injected. Cornea within normal limits. Periorbital areas with no swelling, redness, or edema. ENT: Nares patent. No nasal discharge, no septal abnormalities noted. Tympanic membranes are normal and external auditory canals are clear. Oropharynx with no redness, swelling, or masses, exudates, or evidence of obstruction, uvula midline. Mucous membranes moist. Neck: Trachea midline, no thyromegaly or masses palpated, and no cervical lymphadenopathy. Supple, full range of motion without nuchal rigidity, or vertebral point tenderness. No Meningismus. Chest/axilla: Normal chest wall appearance and motion. Nontender with no deformity. No lesions are appreciated. Cardiovascular: Regular rate and rhythm with a normal S1 and S2. No gallops, murmurs, or rubs. Normal PMI, no JVD. No pulse deficits. Respiratory: Lungs have equal breath sounds bilaterally, clear to auscultation and percussion. No rales, rhonchi or wheezes noted. No increased work of breathing, no retractions or nasal flaring. Abdomen/GI: Soft, non-tender, with normal bowel sounds. No distension or tympany. No guarding or rebound. No evidence of tenderness throughout. Back: No spinal tenderness. No costovertebral tenderness. Full range of motion. Skin: Warm, dry with normal turgor. Normal color with no rashes, no lesions, and no evidence of cellulitis. MS/ Extremity: Pulses equal, no cyanosis. Neurovascular intact. Full, normal range of motion. Neuro: Awake and alert, GCS 15, oriented to person, place, time, and situation. Cranial nerves II-XII grossly intact. Motor strength 5/5 in all extremities. Sensory grossly intact. Cerebellar exam normal. Normal gait. 19:13 Psych: Behavior/mood is cooperative, anxious. Vital Signs: 18:48 BP 147 / 100; Pulse 88; Resp 18; Temp 99.1; Pulse Ox 100% ; Weight 47.63 kg; Height 5 ll1 ft. 1 in. (154.94 cm); Pain 0/10; 18:48 Body Mass Index 19.84 (47.63 kg, 154.94 cm) ll1 MDM: 19:06 Patient medically screened. pkl 19:13 Data reviewed: vital signs, nurses notes. pkl Administered Medications: No medications were administered Disposition: 07/21/20 19:18 Discharged to Home. Impression: Insomnia. - Condition is Stable. - Prescriptions for Ambien 10 mg Oral Tablet - take 1 tablet by ORAL route At bedtime As needed; 10 tablet. - Medication Reconciliation Form, Thank You Letter, Antibiotic Education, Prescription Opioid Use form. - Follow up: Private Physician; When: 7 - 10 days; Reason: Re-evaluation by your physician. - Problem is new. - Symptoms are unchanged. Signatures: Kyle Rowland MD MD pkl Spencer Bean, RN RN rv Nestor Lees RN RN ll1 Corrections: (The following items were deleted from the chart) 19:24 19:18 07/21/2020 19:18 Discharged to Home. Impression: Insomnia. Condition is Stable. rv Forms are Medication Reconciliation Form, Thank You Letter, Antibiotic Education, Prescription Opioid Use. Follow up: Private Physician; When: 7 - 10 days; Reason: Re-evaluation by your physician. Problem is new. Symptoms are unchanged. pkl
[2020-07-21 19:52] VITALS: BP 147/100; TEMP 99.1; O2SAT 100
== END 2020-07-21 19:24 | disposition home or self-care (01) ==
LOC: ER 18:33
DX: G47.00 Insomnia, unspecified (principal); Z98.82 Breast implant status; Z98.84 Bariatric surgery status
CPT/HCPCS: 99283

== ENCOUNTER 2020-09-12 17:11 | Emergency (ER) | payer MEDICARE ==
[2020-09-12] MEDS ORDERED: NA CHLORIDE 0.9% 1,000 ML ONE (18:29)
[2020-09-12] MEDS ORDERED: FENTANYL CITR 100 MCG/2 ML ONE (18:45)
[2020-09-12] MEDS ORDERED: dexAMETHasone 10 MG/ML VIAL ONE (18:46)
[2020-09-12] MEDS ORDERED: DIPHENHYDRAMINE 50 MG/ML VIAL ONE (18:46)
[2020-09-12] MEDS ORDERED: METOCLOPRAMIDE 10 MG/2mL INJ ONE (18:46)
[2020-09-12] MEDS ORDERED: LEVALBUTEROL 1.25 MG/3 ML NEB ONE (18:47)
[2020-09-12 18:53] LABS: Absolute Lymphocytes (CBC) 1.1 K/uL (0.7-4.9); Basophils % 0.4 % (0-1.3); Hematocrit 34.4 % (36.0-45.0); Lymphocytes % 26.5 % (15.3-44.8); MPV 10.3 fL (7.6-11.3); RBC Red Blood Cell Count 3.95 M/uL (3.86-4.86)
[2020-09-12 19:09] LABS: Albumin 3.4 g/dL (3.4-5.0); Bilirubin Total 0.3 mg/dL (0.2-1.0); Protein, Total 7.3 g/dL (6.4-8.2)
[2020-09-12 19:27] LABS: Potassium 4.2 mmol/L (3.5-5.1)
--- NOTE | 2020-09-12 19:35 | EDPHYS ---
Physician Documentation [facility] Name: Betsy Waldron Age: 50 yrs Sex: Female : 1970 Arrival Date: 09/12/2020 Time: 17:13 Bed 18 Private MD: ED Physician Torrey Wooten HPI: 09/12 18:02 This 50 yrs old Female presents to ER via Ambulatory with complaints of jmm Cough, Shortness Of Breath, Body Aches. 18:02 The patient or guardian reports cough. Onset: The symptoms/episode began/occurred jmm gradually, 2 day(s) ago. Modifying factors: The symptoms are alleviated by nothing, the symptoms are aggravated by nothing. This is a 30 year old female with a history of chronic pain complains of cough, shortness of breath, headache. Son recently diagnosed with covid 19. Historical: - Allergies: 17:44 Avelox; iw 17:44 Azithromycin; iw 17:44 Trazodone; iw 17:44 Amoxicillin; iw 17:44 Seroquel; iw - PMHx: 17:44 Bipolar disorder; breast implant illness; Chronic pain; Depression; Endometrosis; iw Irregular heart rate; Kidney stones; Seizures; - PSHx: 17:44 Hysterectomy; breast augmentation; back; Knee surgery; Gastric Bypass; thigh lift; iw - Immunization history:: Adult Immunizations not up to date. - Social history:: Smoking status: Smoking status: Patient denies any tobacco usage or history of. ROS: 18:02 Constitutional: Positive for body aches, fever. jmm 18:02 ENT: Positive for sinus congestion, sore throat. 18:02 Respiratory: Positive for cough. 18:02 Neuro: Positive for headache. 18:02 All other systems are negative. Exam: 18:02 Constitutional: This is a well developed, well nourished patient who is awake, alert, jmm and in no acute distress. Head/Face: atraumatic. Eyes: EOMI, no conjunctival erythema appreciated ENT: Moist Mucus Membranes Neck: Trachea midline, Supple Chest/axilla: Normal chest wall appearance and motion. Cardiovascular: Regular rate and rhythm. No edema appreciated Respiratory: Normal respirations, no respiratory distress appreciated Abdomen/GI: Non distended, soft Back: Normal ROM Skin: General appearance color normal MS/ Extremity: Moves all extremities, no obvious deformities appreciated, no edema noted to the lower extremities Neuro: Awake and alert, normal gait Psych: Behavior is normal, Mood is normal, Patient is cooperative and pleasant Vital Signs: 17:42 BP 111 / 93; Pulse 103; Resp 22 S; Temp 97.5; Pulse Ox 100% on R/A; Weight 47.63 kg; iw Height 5 ft. 1 in. (154.94 cm); 18:52 BP 149 / 91; Pulse 78; Resp 18; Pulse Ox 100% on Nebulizer Mask; tw2 19:22 BP 119 / 68; Pulse 100; Resp 19; Temp 98.8; Pulse Ox 100% ; rr5 17:42 Body Mass Index 19.84 (47.63 kg, 154.94 cm) iw MDM: 18:02 Patient medically screened. [facility] 19:33 Data reviewed: vital signs, nurses notes. Counseling: I had a detailed discussion with [facility] the patient and/or guardian regarding: the historical points, exam findings, and any diagnostic results supporting the discharge/admit diagnosis, lab results, the need for outpatient follow up, to return to the emergency department if symptoms worsen or persist or if there are any questions or concerns that arise at home. ED course: Patient is alert and non toxic in appearance in the ED. Patient is advised to follow up with pcp and otherwise given strict return precautions. Patient understood and agrees with the plan of care. . 09/12 18:11 Order name: CBC with Diff; Complete Time: 18:58 [facility] 09/12 18:11 Order name: CMP; Complete Time: 19:29 [facility] 09/12 18:11 Order name: D-Dimer; Complete Time: 19:13 [facility] 09/12 18:11 Order name: Saline Lock; Complete Time: 18:46 [facility] Administered Medications: 18:40 Drug: diphenhydrAMINE 12.5 mg Route: IVP; Site: left forearm; tw2 18:42 Drug: Decadron - Dexamethasone 10 mg Route: IVP; Site: left forearm; tw2 18:45 Drug: NS 0.9% 1000 ml Route: IV; Rate: 1 bolus; Site: left forearm; tw2 18:45 Drug: fentaNYL (PF) 50 mcg {Note: RASS 0.} Route: IVP; Site: left forearm; tw2 18:45 Drug: Reglan 10 mg Route: IVP; Site: left forearm; tw2 18:46 Drug: Xopenex (3) 1.25 mg Route: Inhalation; tw2 Disposition: 09/13 14:34 Co-signature as Attending Physician, Torrey Wooten MD. rn Disposition: 09/12/20 19:34 Discharged to Home. Impression: Acute upper respiratory infection, unspecified. - Condition is Stable. - Discharge Instructions: Upper Respiratory Infection, Adult, COVID-19. - Prescriptions for Doxycycline Hyclate 100 mg Oral Tablet - take 1 tablet by ORAL route every 12 hours; 20 tablet. Albuterol Sulfate 90 mcg/actuation - inhale 1-2 puff by INHALATION route every 4-6 hours; 1 Inhaler. - Medication Reconciliation Form, Thank You Letter, Antibiotic Education, Prescription Opioid Use form. - Follow up: Private Physician; When: 2 - 3 days; Reason: Recheck today's complaints, Continuance of care, Re-evaluation by your physician. Signatures: Dispatcher [employer] EDMS Cassius Isidro PA PA jmm Williams, Irene, Torrey Radford RN, MD MD rn Wise, Tara, RN RN tw2 Sergio Remy, RN RN rr5 Corrections: (The following items were deleted from the chart) 09/12 19:57 19:34 09/12/2020 19:34 Discharged to Home. Impression: Acute upper respiratory rr5 infection, unspecified. Condition is Stable. Forms are Medication Reconciliation Form, Thank You Letter, Antibiotic Education, Prescription Opioid Use. Follow up: Private Physician; When: 2 - 3 days; Reason: Recheck today's complaints, Continuance of care, Re-evaluation by your physician. rajat
--- NOTE | 2020-09-12 19:35 | ER ---
Nurse's Notes [facility] Name: Betsy Waldron Age: 50 yrs Sex: Female : 1970 Arrival Date: 09/12/2020 Time: 17:13 Bed 18 Private MD: Diagnosis: Acute upper respiratory infection, unspecified Presentation: 09/12 17:42 Chief complaint: Patient states: fever, cough, back pain, headache X 3 days, son tested iw positive for COVID on Sunday. Coronavirus screen: cough unrelated to allergies, fever, headache, Client presents with at least one sign or symptom that may indicate coronavirus-19. Standard/surgical mask placed on the client. Provider contacted for isolation considerations. Ebola Screen: Patient negative for fever greater than or equal to 101.5 degrees Fahrenheit, and additional compatible Ebola Virus Disease symptoms Patient denies exposure to infectious person. Patient denies travel to an Ebola-affected area in the 21 days before illness onset. No symptoms or risks identified at this time. Initial Sepsis Screen: Does the patient meet any 2 criteria? No. Patient's initial sepsis screen is negative. Does the patient have a suspected source of infection? No. Patient's initial sepsis screen is negative. Risk Assessment: Do you want to hurt yourself or someone else? Patient reports no desire to harm self or others. Onset of symptoms was September 10, 2020. 17:42 Method Of Arrival: Ambulatory iw 17:42 Acuity: MORA 3 iw Historical: - Allergies: 17:44 Avelox; iw 17:44 Azithromycin; iw 17:44 Trazodone; iw 17:44 Amoxicillin; iw 17:44 Seroquel; iw - PMHx: 17:44 Bipolar disorder; breast implant illness; Chronic pain; Depression; Endometrosis; iw Irregular heart rate; Kidney stones; Seizures; - PSHx: 17:44 Hysterectomy; breast augmentation; back; Knee surgery; Gastric Bypass; thigh lift; iw - Immunization history:: Adult Immunizations not up to date. - Social history:: Smoking status: Smoking status: Patient denies any tobacco usage or history of. Screenin:01 Abuse screen: Denies threats or abuse. Nutritional screening: No deficits noted. tw2 Tuberculosis screening: No symptoms or risk factors identified. Fall Risk None identified. Assessment: 17:58 General: Appears in no apparent distress. slender, well groomed, Behavior is calm, tw2 cooperative, appropriate for age. Pain: Complains of pain in body aches. Neuro: Level of Consciousness is awake, alert, obeys commands, Oriented to person, place, time, situation. Cardiovascular: Capillary refill Rhythm is regular. Respiratory: Reports shortness of breath at rest on exertion cough that is non-productive, Airway is patent Respiratory effort is even, unlabored, Respiratory pattern is regular, symmetrical, GI: No signs and/or symptoms were reported involving the gastrointestinal system. : No signs and/or symptoms were reported regarding the genitourinary system. EENT: No signs and/or symptoms were reported regarding the EENT system. Derm: No signs and/or symptoms reported regarding the dermatologic system. Musculoskeletal: Range of motion: intact in all extremities. 18:03 Reassessment: provider at bedside at this time. tw2 18:52 Reassessment: Patient appears in no apparent distress at this time. No changes from tw2 previously documented assessment. Patient and/or family updated on plan of care and expected duration. Pain level reassessed. Patient is alert, oriented x 3, equal unlabored respirations, skin warm/dry/pink. 19:05 General: Appears in no apparent distress. uncomfortable, Behavior is calm, cooperative, rr5 appropriate for age, received from miriam BYNUM with a complaint of cough, shortness of breath. Neuro: Level of Consciousness is awake, alert, obeys commands, Oriented to person, place, time. Cardiovascular: Capillary refill < 3 seconds Patient's skin is warm and dry. Respiratory: Airway is patent Respiratory effort is even, unlabored, Respiratory pattern is regular, symmetrical, ongoing breathing treatment. 19:35 Reassessment: reassess by ED provider with order for discharge. rr5 19:55 Reassessment: Patient appears in no apparent distress at this time. Patient is alert, rr5 oriented x 3, equal unlabored respirations, skin warm/dry/pink. discharge instruction given and explained without complaints made. Vital Signs: 17:42 BP 111 / 93; Pulse 103; Resp 22 S; Temp 97.5; Pulse Ox 100% on R/A; Weight 47.63 kg; iw Height 5 ft. 1 in. (154.94 cm); 18:52 BP 149 / 91; Pulse 78; Resp 18; Pulse Ox 100% on Nebulizer Mask; tw2 19:22 BP 119 / 68; Pulse 100; Resp 19; Temp 98.8; Pulse Ox 100% ; rr5 17:42 Body Mass Index 19.84 (47.63 kg, 154.94 cm) ED Course: 17:13 Patient arrived in ED. rg4 17:44 Triage completed. iw 17:45 Arm band placed on. iw 17:57 Cassius Isidro PA is PHCP. jmm 17:57 Torrey Wooten MD is Attending Physician. jmm 17:57 Placed in gown. Bed in low position. Call light in reach. Pulse ox on. NIBP on. tw2 18:01 Miriam Camacho RN is Primary Nurse. tw2 18:35 Inserted saline lock: 22 gauge in left forearm, using aseptic technique. ,using aseptic tw2 technique. blood collected. 19:02 Report given to FLETCHER Hill. tw2 19:13 Primary Nurse role handed off by Miriam Camacho RN mw2 19:22 Sergio Remy RN is Primary Nurse. rr5 20:00 No provider procedures requiring assistance completed. IV discontinued, intact, rr5 bleeding controlled, No redness/swelling at site. Pressure dressing applied. Administered Medications: 18:40 Drug: diphenhydrAMINE 12.5 mg Route: IVP; Site: left forearm; tw2 18:42 Drug: Decadron - Dexamethasone 10 mg Route: IVP; Site: left forearm; tw2 18:45 Drug: NS 0.9% 1000 ml Route: IV; Rate: 1 bolus; Site: left forearm; tw2 18:45 Drug: fentaNYL (PF) 50 mcg {Note: RASS 0.} Route: IVP; Site: left forearm; tw2 18:45 Drug: Reglan 10 mg Route: IVP; Site: left forearm; tw2 18:46 Drug: Xopenex (3) 1.25 mg Route: Inhalation; tw2 Outcome: 19:34 Discharge ordered by . jmm 19:55 Discharged to home ambulatory. rr5 19:55 Condition: stable 19:55 Discharge instructions given to patient, Instructed on discharge instructions, follow up and referral plans. medication usage, Demonstrated understanding of instructions, follow-up care, medications, Prescriptions given X 2. 19:57 Patient left the ED. rr5 Signatures: Cassius Isidro PA PA jmm Williams, Irene, RN RN iw Miriam Camacho RN RN tw2 Angelique Hunter 4 Tayo Lopez 2 Sergio Remy RN RN rr5
[2020-09-14 15:35] VITALS: O2SAT 100
[2020-09-14 15:37] VITALS: BP 119/68; TEMP 98.8
== END 2020-09-12 19:57 | disposition home or self-care (01) ==
LOC: ER 17:11
DX: J06.9 Acute upper respiratory infection, unspecified (principal); Z88.3 Allergy status to other anti-infective agents; Z88.1 Allergy status to other antibiotic agents; Z88.8 Allergy status to other drugs, medicaments and biological substances
CPT/HCPCS: 36415; 80053; 85025; 85379; 96374; 96375; 99284; J1100; J1200; J2765; J3010; J7030

== ENCOUNTER 2020-11-10 20:22 | Emergency (ER) | payer MEDICARE ==
[2020-11-10 21:36] LABS: Absolute Lymphocytes (CBC) 2.4 K/uL (0.7-4.9); Basophils % 1.1 % (0-1.3); Hematocrit 35.8 % (36.0-45.0); Lymphocytes % 35.4 % (15.3-44.8); MPV 8.6 fL (7.6-11.3); RBC Red Blood Cell Count 4.25 M/uL (3.86-4.86)
[2020-11-10] MEDS ORDERED: METOCLOPRAMIDE 10 MG/2mL INJ ONE (21:40)
[2020-11-10] MEDS ORDERED: LORazepam 2 MG/ML VIAL ONE (21:40)
[2020-11-10] MEDS ORDERED: DIPHENHYDRAMINE 50 MG/ML VIAL ONE (21:40)
[2020-11-10] MEDS ORDERED: HYDROMORPHONE HCL 0.5 MG/0.5 ML INJ ONE (21:41)
[2020-11-10] MEDS ORDERED: NA CHLORIDE 0.9% 500 ML ONE (21:41)
[2020-11-10] MEDS ORDERED: FAMOTIDINE 20 MG/2 ML VIAL IV ONE (21:41)
[2020-11-10 21:51] LABS: Albumin 4.2 g/dL (3.4-5.0); Bilirubin Direct 0.1 mg/dL (0-0.2); Bilirubin Total 0.3 mg/dL (0.2-1.0); Potassium 3.8 mmol/L (3.5-5.1); Protein, Total 8.2 g/dL (6.4-8.2)
--- NOTE | 2020-11-11 00:08 | ER ---
Nurse's Notes 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 No dysuria. Coronavirus screen: Client denies travel out of the [place] in the last 14 days. At this time, the client does not indicate any symptoms associated with coronavirus-19. Ebola Screen: Patient denies travel to an Ebola-affected area in the 21 days before illness onset. Initial Sepsis Screen: Does the patient meet any 2 criteria? HR > 90 bpm. No. Patient's initial sepsis screen is negative. Does the patient have a suspected source of infection? Yes: Acute abdominal pain. Risk Assessment: Do you want to hurt yourself or someone else? Patient reports no desire to harm self or others. Onset of symptoms was November 10, 2020. 20:44 Method Of Arrival: Wheelchair ll1 20:44 Acuity: MORA 3 ll1 Historical: - Allergies: 20:44 Amoxicillin; ll1 20:44 Avelox; ll1 20:44 Azithromycin; ll1 20:44 Seroquel; ll1 20:44 Trazodone; ll1 20:44 Morphine; ll1 - PMHx: 20:44 breast implant illness; Bipolar disorder; Chronic pain; Depression; Endometrosis; ll1 Irregular heart rate; Kidney stones; Seizures; - PSHx: 20:44 Hysterectomy; breast augmentation; back; Knee surgery; Gastric Bypass; thigh lift; ll1 - Immunization history:: Flu vaccine is not up to date. - Social history:: Smoking status: Patient denies any tobacco usage or history of. Screenin:53 Abuse screen: Denies threats or abuse. Nutritional screening: No deficits noted. em Tuberculosis screening: No symptoms or risk factors identified. Fall Risk None identified. Assessment: 21:44 General: Appears in no apparent distress. uncomfortable, Behavior is cooperative, em anxious, crying, Denies fever. Pain: Complains of pain in abdomen Pain currently is 10 out of 10 on a pain scale. Pain began 2 hours ago. Neuro: Level of Consciousness is awake, alert, obeys commands, Oriented to person, place, time, situation. Cardiovascular: Capillary refill < 3 seconds Patient's skin is warm and dry. Respiratory: Airway is patent Respiratory effort is even, unlabored, Respiratory pattern is regular, symmetrical. GI: Abdomen is flat, Bowel sounds present X 4 quads. Abd is soft X 4 quads Reports nausea, vomiting. : Denies burning with urination. Derm: Skin is intact, is healthy with good turgor, Skin is pink, warm \T\ dry. Musculoskeletal: Capillary refill < 3 seconds, Range of motion: intact in all extremities. 22:00 Reassessment: rates pain 9/10 Patient states symptoms have not improved. em 23:01 Reassessment: pt wheeled to CT via wheelchair. em Vital Signs: 20:44 BP 152 / 115; Pulse 115; Resp 20; Temp 97.5; Pulse Ox 100% ; Weight 50.8 kg; Height 5 ll1 ft. 1 in. (154.94 cm); Pain 10/10; 20:47 BP 175 / 110; ll1 21:39 BP 166 / 90; Pulse 99; Resp 22; Pulse Ox 100% on R/A; Pain 10/10; em 11/11 00:25 BP 163 / 87; Pulse 83; Resp 18; Pulse Ox 99% on R/A; Pain 8/10; em 11/10 20:44 Body Mass Index 21.16 (50.80 kg, 154.94 cm) ll1 ED Course: 11/10 20:24 Patient arrived in ED. cl3 20:45 Triage completed. ll1 20:45 Arm band placed on. 1 20:52 Cassius Isidro PA is PHCP. [facility] 20:52 Torrey Wooten MD is Attending Physician. [facility] 20:53 Christian Marrero, RN is Primary Nurse. em 20:53 Patient has correct armband on for positive identification. Bed in low position. Call em light in reach. Adult w/ patient. 22:25 Initial lab(s) drawn, by me, sent to lab. Inserted saline lock: 22 gauge in right em forearm, using aseptic technique. Blood collected. 23:26 CT Abd/Pelvis - IV Contrast Only In Process Unspecified. EDMS 11/11 00:36 No provider procedures requiring assistance completed. IV discontinued, intact, em bleeding controlled, No redness/swelling at site. Pressure dressing applied. Administered Medications: 11/10 21:03 CANCELLED (different amt used): NS 0.9% 1000 ml IV at 1 bolus Per protocol; 1000 mL [facility] bolus 21:25 Drug: NS 0.9% 500 ml Route: IV; Rate: bolus; Site: right forearm; em 22:15 Follow up: IV Status: Completed infusion; IV Intake: 500ml em 21:25 Drug: Pepcid 20 mg Route: IVP; Site: right forearm; em 22:00 Follow up: Response: No adverse reaction em 21:27 Drug: diphenhydrAMINE 25 mg Route: IVP; Site: right forearm; em 22:00 Follow up: Response: No adverse reaction em 21:30 Drug: Dilaudid 0.5 mg Route: IVP; Site: right forearm; em 22:00 Follow up: Response: No adverse reaction; No change in condition; Pain is unchanged, em physician notified; RASS: Restless (+1) 21:35 Drug: Reglan 20 mg Route: IVP; Site: right forearm; em 22:15 Follow up: Response: No adverse reaction em 22:02 Drug: Ativan 1 mg Route: IVP; Site: right forearm; em 23:30 Follow up: Response: No adverse reaction; No change in condition; Pain is unchanged, em physician notified 11/11 00:28 Drug: Ativan 1 mg Route: IVP; Site: right forearm; em 00:35 Follow up: Response: Medication administered at discharge. em 00:31 Drug: Dilaudid 1 mg Route: IVP; Site: right forearm; em 00:35 Follow up: Response: Medication administered at discharge. em Intake: 11/10 22:15 IV: 500ml; Total: 500ml. em Outcome: 11/11 00:07 Discharge ordered by . rajat 00:37 Patient left the ED. em Signatures: Dispatcher [employer] EDMS Cassius Isidro PA PA jmm Munoz, Edgar, RN RN em Ally Lees cl3 Nestor Lees RN RN ll1
--- NOTE | 2020-11-11 00:08 | EDPHYS ---
Physician Documentation [facility] Name: Betsy Waldron Age: 50 yrs Sex: Female : 1970 Arrival Date: 11/10/2020 Time: 20:24 Bed 16 Private MD: ED Physician Torrey Wooten HPI: 11/10 21:11 This 50 yrs old Female presents to ER via Wheelchair with complaints of [facility] Abdominal Pain. 21:11 The patient presents with abdominal pain. Onset: The symptoms/episode began/occurred jm acutely, today, at 18:00. The symptoms do not radiate. Associated signs and symptoms: Pertinent negatives: constipation, diarrhea. The symptoms are described as achy, crampy, sharp. Modifying factors: The symptoms are alleviated by nothing, the symptoms are aggravated by nothing. This is a 50 year old female with a history of chronic abdominal pain, bipolar, depression that presents to the ED with complaints of diffuse abdominal pain which is similar in character to previous episodes of abdominal pain. Patient states she took gas x to relieved pain with no resolution. . Historical: - Allergies: 20:44 Amoxicillin; ll1 20:44 Avelox; ll1 20:44 Azithromycin; ll1 20:44 Seroquel; ll1 20:44 Trazodone; ll1 20:44 Morphine; ll1 - PMHx: 20:44 breast implant illness; Bipolar disorder; Chronic pain; Depression; Endometrosis; ll1 Irregular heart rate; Kidney stones; Seizures; - PSHx: 20:44 Hysterectomy; breast augmentation; back; Knee surgery; Gastric Bypass; thigh lift; ll1 - Immunization history:: Flu vaccine is not up to date. - Social history:: Smoking status: Patient denies any tobacco usage or history of. ROS: 21:11 Constitutional: Negative for fever, chills, and weight loss, Cardiovascular: Negative jm for chest pain, palpitations, and edema, Respiratory: Negative for shortness of breath, cough, wheezing, and pleuritic chest pain. 21:11 Abdomen/GI: Positive for abdominal pain. 21:11 All other systems are negative. Exam: 21:11 Eyes: EOMI, no conjunctival erythema appreciated jmm 21:11 ENT: Moist Mucus Membranes Neck: Trachea midline, Supple Chest/axilla: Normal chest wall appearance and motion. Cardiovascular: Regular rate and rhythm. No edema appreciated Respiratory: Normal respirations, no respiratory distress appreciated 21:11 Back: Normal ROM Skin: General appearance color normal 21:11 Constitutional: The patient appears alert, awake, anxious, in obvious pain. 21:11 Abdomen/GI: Inspection: abdomen appears normal, Bowel sounds: normal, Palpation: soft, moderate abdominal tenderness, in all quadrants. 21:11 Musculoskeletal/extremity: ROM: intact in all extremities. 21:11 Skin: Appearance: Color: normal in color. 21:11 Neuro: Orientation: is normal, Mentation: is normal, Memory: is normal. 21:11 Psych: Behavior/mood is pleasant, cooperative. Vital Signs: 20:44 BP 152 / 115; Pulse 115; Resp 20; Temp 97.5; Pulse Ox 100% ; Weight 50.8 kg; Height 5 ll1 ft. 1 in. (154.94 cm); Pain 10/10; 20:47 BP 175 / 110; ll1 21:39 BP 166 / 90; Pulse 99; Resp 22; Pulse Ox 100% on R/A; Pain 10/10; em 11/11 00:25 BP 163 / 87; Pulse 83; Resp 18; Pulse Ox 99% on R/A; Pain 8/10; em 11/10 20:44 Body Mass Index 21.16 (50.80 kg, 154.94 cm) ll1 MDM: 11/10 21:01 Patient medically screened. [facility] 11/11 00:06 Data reviewed: vital signs, nurses notes. Counseling: I had a detailed discussion with [facility] the patient and/or guardian regarding: the historical points, exam findings, and any diagnostic results supporting the discharge/admit diagnosis, lab results, radiology results, the need for outpatient follow up, to return to the emergency department if symptoms worsen or persist or if there are any questions or concerns that arise at home. ED course: Patient is alert and non toxic in appearance in the ED. No signs of an acute intraabdominal process. patient is advised to follow up with pcp and otherwise given strict return precautions. patient understood and agrees with the plan of care. . 11/10 21:02 Order name: Basic Metabolic Panel; Complete Time: 21:51 [facility] 11/10 21:02 Order name: CBC with Diff; Complete Time: 21:46 [facility] 11/10 21:02 Order name: Hepatic Function; Complete Time: 21:51 [facility] 11/10 21:02 Order name: Lipase; Complete Time: 21:51 [facility] 11/10 22:27 Order name: CT Abd/Pelvis - IV Contrast Only [facility] 11/10 21:02 Order name: IV Saline Lock; Complete Time: 21:26 [facility] 11/10 21:02 Order name: Labs collected and sent; Complete Time: : [facility] Administered Medications: 11/10 21:03 CANCELLED (different amt used): NS 0.9% 1000 ml IV at 1 bolus Per protocol; 1000 mL [facility] bolus : Drug: NS 0.9% 500 ml Route: IV; Rate: bolus; Site: right forearm; em 22:15 Follow up: IV Status: Completed infusion; IV Intake: 500ml em Drug: Pepcid 20 mg Route: IVP; Site: right forearm; em 22:00 Follow up: Response: No adverse reaction em : Drug: diphenhydrAMINE 25 mg Route: IVP; Site: right forearm; em 22:00 Follow up: Response: No adverse reaction em : Drug: Dilaudid 0.5 mg Route: IVP; Site: right forearm; em 22:00 Follow up: Response: No adverse reaction; No change in condition; Pain is unchanged, em physician notified; RASS: Restless (+1) 21:35 Drug: Reglan 20 mg Route: IVP; Site: right forearm; em 22:15 Follow up: Response: No adverse reaction em 22: Drug: Ativan 1 mg Route: IVP; Site: right forearm; em 23:30 Follow up: Response: No adverse reaction; No change in condition; Pain is unchanged, em physician notified 11/11 00:28 Drug: Ativan 1 mg Route: IVP; Site: right forearm; em 00:35 Follow up: Response: Medication administered at discharge. em 00:31 Drug: Dilaudid 1 mg Route: IVP; Site: right forearm; em 00:35 Follow up: Response: Medication administered at discharge. em Disposition: : Co-signature as Attending Physician, Torrey Wooten MD. rn Disposition: 11/11/20 00:07 Discharged to Home. Impression: Lower abdominal pain, unspecified, Enteritis. - Condition is Stable. - Discharge Instructions: Abdominal Pain, Adult, Viral Gastroenteritis, Adult. - Prescriptions for Bentyl 20 mg Oral Tablet - take 2 tablet by ORAL route every 6 hours As needed; 40 tablet. - Medication Reconciliation Form, Thank You Letter, Antibiotic Education, Prescription Opioid Use form. - Follow up: Private Physician; When: 2 - 3 days; Reason: Recheck today's complaints, Continuance of care, Re-evaluation by your physician. Signatures: Dispatcher [employer] Cassius Nino PA PA jmm Munoz, Edgar, RN RN Torrey Riggins MD MD rn Lewis, Lynsay, RN RN ll1 Corrections: (The following items were deleted from the chart) 11/10 21:03 21:02 NS 0.9% 1000 ml IV at 1 bolus Per protocol; 1000 mL bolus ordered. rajat earl 11/11 00:37 00:07 11/11/2020 00:07 Discharged to Home. Impression: Lower abdominal pain, em unspecified; Enteritis. Condition is Stable. Forms are Medication Reconciliation Form, Thank You Letter, Antibiotic Education, Prescription Opioid Use. Follow up: Private Physician; When: 2 - 3 days; Reason: Recheck today's complaints, Continuance of care, Re-evaluation by your physician. rajat
[2020-11-11] MEDS ORDERED: HYDROMORPHONE HCL 1 MG/ML INJ ONE (00:38)
[2020-11-11 00:49] VITALS: TEMP 97.5
[2020-11-11 00:52] VITALS: BP 163/87; O2SAT 99
--- NOTE | 2020-11-11 10:04 | RAD REPORT ---
EXAM DESCRIPTION: CT - Abdomen Pelvis W Contrast - 11/11/2020 7:16 am CLINICAL HISTORY: Lower abdominal pain COMPARISON: 06/02/2020 TECHNIQUE: CT of the abdomen and pelvis performed following IV administration of iodinated contras t.. FINDINGS: Lung Bases: The visualized lung bases are clear. Bilateral breast implants. Bones: Posterior fixation at L5/S1. Mild endplate spondylosis of the spine. Abdomen: Liver: The liver has normal size and density. No intrahepatic biliary dilatation. Gallbladder: Prior cholecystectomy. Spleen, Pancreas, and Adrenal Glands: The spleen, pancreas, and adrenal glands are unremarkable. Kidneys: No hydronephrosis or obstructing calculus. Vasculature: Aortoiliac atherosclerosis. IVC is unremarkable. The portal vein is patent. The proxim al visceral and renal arteries are patent. Stomach: Postoperative change of the stomach. Small hiatal hernia. Other: No free intraperitoneal air. No free fluid or lymphadenopathy. Pelvis: Bladder: Mild increase in caliber of the small bowel without significant distal decompression. Ther e is long segment wall thickening with adjacent inflammatory change free fluid of the ileum. Large am ount stool in the colon. Bowel: No dilated loops of large or small bowel. Appendix: None identified. Pelvis: Prior hysterectomy. IMPRESSION: 1. Findings compatible with acute nonspecific enteritis of the ileum which may be of inf ectious or inflammatory etiology. This exam was performed according to our departmental dose-optimization program, which includes autom ated exposure control, adjustment of the mA and/or kV according to patient size and/or use of iterati ve reconstruction technique. Electronically signed by: Ney Vogel 11/10/2020 11:42 PM SEAM CLOSER Due to temporary technical issues with the PACS/Fluency reporting system, reports are being signed by the in house radiologist without review as a courtesy to ensure prompt reporting. The interpreting r adiologist is fully responsible for the content of the report.
== END 2020-11-11 00:37 | disposition home or self-care (01) ==
LOC: ER 20:22
DX: K52.9 Noninfective gastroenteritis and colitis, unspecified (principal); Z98.82 Breast implant status; Z88.1 Allergy status to other antibiotic agents; Z88.3 Allergy status to other anti-infective agents; Z88.5 Allergy status to narcotic agent
CPT/HCPCS: 36415; 74177; 80048; 80076; 83690; 85025; 96361; 96374; 96375; 99284; J1170; J1200; J2765; J7040; Q9967

== ENCOUNTER 2021-08-01 20:44 | Inpatient (IN) | payer BC, MEDICARE ==
[2021-08-01] MEDS ORDERED: ONDANSETRON 4 MG/2 ML VIAL ONE (21:07)
[2021-08-01] MEDS ORDERED: NA CHLORIDE 0.9% 1,000 ML ONE (21:07)
[2021-08-01] MEDS ORDERED: MEPERIDINE HCL 50 MG/ML ONE (21:09)
[2021-08-01 21:38] LABS: Urine Blood Negative (Negative); Urine Glucose Negative (Negative); Urine Protein Negative (Negative); Urine Specific Gravity 1.025 (1.005-1.030)
[2021-08-01 21:49] LABS: Urine Bacteria <20 /HPF (<20); Urine RBC <5 /HPF (NONE SEEN)
[2021-08-01 21:54] LABS: Absolute Lymphocytes (CBC) 2.2 K/uL (0.7-4.9); Basophils % 0.5 % (0-1.3); Hematocrit 34.2 % (36.0-45.0); Lymphocytes % 20.9 % (15.3-44.8); MPV 8.3 fL (7.6-11.3); RBC Red Blood Cell Count 4.08 M/uL (3.86-4.86)
[2021-08-01 22:19] LABS: ALT/SGPT 18 U/L (12-78); AST/SGOT 16 U/L (15-37); Alkaline Phosphatase 111 U/L (45-117); BUN Blood Urea Nitrogen 12 mg/dL (7-18); Bicarbonate 29 mmol/L (21-32); Bilirubin Direct < 0.1 mg/dL (0-0.2); Bilirubin Total 0.2 mg/dL (0.2-1.0); Glucose Level 96 mg/dL (74-106); Lipase 177 U/L (73-393); Potassium 3.4 mmol/L (3.5-5.1); Sodium Level 142 mmol/L (136-145)
--- NOTE | 2021-08-01 23:38 | EDPHYS ---
Physician Documentation [facility] Name: Betsy Waldron Age: 51 yrs Sex: Female : 1970 Arrival Date: 08/01/2021 Time: 20:46 Bed 27 Private MD: ED Physician Torrey Wooten HPI: 08/01 21:12 This 51 yrs old Female presents to ER via Ambulatory with complaints of rn Abdominal Pain. 21:12 The patient presents with abdominal pain that is diffuse. Onset: The symptoms/episode rn began/occurred 1 hour(s) ago. The symptoms do not radiate. Associated signs and symptoms: Pertinent positives: nausea and vomiting, Pertinent negatives: blood in stools, chest pain, constipation, diarrhea, dysuria, fever, hematuria, shortness of breath, vomiting blood. The symptoms are described as intermittent, sharp. The symptoms are described as crampy. Modifying factors: The symptoms are alleviated by nothing, the symptoms are aggravated by nothing. Severity of pain: At its worst the pain was moderate in the emergency department the pain is unchanged. The patient has experienced a previous episode. The patient has not recently seen a physician. Patient reports sudden onset of diffuse abdominal pain that began 1 hour prior to arrival. Reports nausea and vomiting and could not keep her pain medication down. States does not have any nausea medication at home either. Denies blood in stool or diarrhea. States comes in waves and feels crampy like a bad menstrual cramp.. 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, Premature 1, Living 2 cc4 Historical: - Allergies: 20:52 Amoxicillin; jh5 20:52 Azithromycin; jh5 20:52 Morphine; jh5 20:52 Seroquel; jh5 20:52 Trazodone; jh5 20:52 Avelox; jh5 - Home Meds: 20:52 tizanidine 4 mg Oral tab 1 tab daily [Active]; oxycodone 10 mg Oral tab 1 tab three jh5 times a day [Active]; fentanyl 25 mcg/hr Topical pt72 1 patch every 72 hours [Active]; clonazepam 2 mg Oral tab 1 tab 4 times a day [Active]; - PMHx: 20:52 Bipolar disorder; breast implant illness; Chronic pain; Depression; Endometrosis; jh5 Irregular heart rate; Kidney stones; Seizures; - Immunization history:: Adult Immunizations up to date. - Social history:: Smoking status: Patient denies any tobacco usage or history of. - Family history:: not pertinent. - Hospitalizations: : No recent hospitalization is reported. ROS: 21:12 Constitutional: Negative for fever, chills, and weight loss, Eyes: Negative for injury, rn pain, redness, and discharge, Neck: Negative for injury, pain, and swelling, Cardiovascular: Negative for chest pain, palpitations, and edema, Respiratory: Negative for shortness of breath, cough, wheezing, and pleuritic chest pain, Abdomen/GI: Positive for abdominal pain/nausea/vomiting Back: Negative for injury and pain, : Negative for injury, bleeding, discharge, and swelling, MS/Extremity: Negative for injury and deformity, Skin: Negative for injury, rash, and discoloration, Neuro: Negative for headache, weakness, numbness, tingling, and seizure. 21:12 All other systems are negative. rn Exam: 21:12 Constitutional: This is a well developed, well nourished patient who is awake, alert, rn appears uncomfortable Head/Face: Normocephalic, atraumatic. Eyes: Periorbital areas with no swelling, redness, or edema. Cardiovascular: Tachycardic, regular. No pulse deficits Respiratory: No increased work of breathing, no retractions or nasal flaring. Abdomen/GI: Mild tenderness in all 4 quadrants, no masses, no peritoneal signs Skin: Warm, dry MS/ Extremity: Pulses equal, no cyanosis. Neuro: Awake and alert, GCS 15, oriented to person, place, time, and situation. Cranial nerves II-XII grossly intact. Motor strength 5/5 in all extremities. Sensory grossly intact. Vital Signs: 20:48 BP 156 / 95; Pulse 110; Resp 16; Temp 98.3; Pulse Ox 100% ; jh5 21:11 BP 140 / 100; Pulse 90; Resp 18; Pulse Ox 100% on R/A; cc4 21:30 BP 137 / 81; Pulse 86; Resp 20; Pulse Ox 100% on R/A; cc4 22:00 BP 123 / 65; Pulse 88; Resp 18; Pulse Ox 100% on R/A; cc4 11/09 01:06 BP 118 / 73; Pulse 64; Resp 20; Temp 98.1(O); Pulse Ox 99% on R/A; cc4 MDM: 08/01 20:57 Patient medically screened. rn 23:33 Differential diagnosis: bowel obstruction, Endometriosis, gastritis, gastroesophageal rn reflux disease, non-specific abd pain, pancreatitis, Peptic Ulcer Disease, Pyelonephritis, Ureterolithiasis, urinary tract infection, inflammatory bowel disease. Data reviewed: vital signs, nurses notes, lab test result(s), radiologic studies, CT scan, and as a result, I will admit patient. Counseling: I had a detailed discussion with the patient and/or guardian regarding: the historical points, exam findings, and any diagnostic results supporting the discharge/admit diagnosis, lab results, radiology results, the need for further work-up and treatment in the hospital. Response to treatment: the patient's symptoms have mildly improved after treatment, and as a result, I will admit patient. Admission orders: after a detailed discussion of the patient's condition and case, the admit orders are written by me. ED course: CT shows small bowel inflammation and possible early small bowel obstruction per radiology believes it to be secondary to either stricture or inflammatory bowel disease like undiagnosed Crohn's disease given similar presentation last ER visit. Will cover patient with antibiotics and steroids and admit to hospitalist service. Consulted with Dr. Groves and notified him that not likely surgical case, more GI consultation but he will be consulted nonetheless.. 08/01 21:03 Order name: Basic Metabolic Panel rn 08/01 21:03 Order name: CBC with Diff; Complete Time: 22:16 rn 08/01 21:03 Order name: Hepatic Function; Complete Time: 22:24 rn 08/01 21:03 Order name: Lipase; Complete Time: 22:24 rn 08/01 21:03 Order name: Urine Microscopic Only; Complete Time: 22:16 rn 08/01 21:04 Order name: Basic Metabolic Panel; Complete Time: 22:24 EDMS 08/01 21:37 Order name: Urine Dipstick-Ancillary; Complete Time: 22:16 EDNV 08/01 21:51 Order name: Urine Culture EDMS 08/01 23:40 Order name: COVID-19 SARS RT PCR (Document "Date of Onset" if Symptomatic) la1 08/02 05:36 Order name: CBC with Automated Diff EDNV 08/02 05:54 Order name: Comprehensive Metabolic Panel EDMS 08/02 05:54 Order name: T4 Free EDMS 08/02 05:54 Order name: Magnesium EDMS 08/02 05:54 Order name: Thyroid Stimulating Hormone EDMS 08/01 21:03 Order name: IV Saline Lock; Complete Time: 21:40 rn 08/01 21:03 Order name: Labs collected and sent; Complete Time: 21:40 rn 08/01 21:03 Order name: CT Abd/Pelvis - IV Contrast Only rn 08/02 07:47 Order name: Manual Differential EDMS 08/02 09:11 Order name: RAD EDMS 08/02 11:31 Order name: Iron EDMS 08/02 11:31 Order name: Transferrin Sat/Iron Binding EDMS 08/02 11:31 Order name: Vitamin B12 Level EDMS 08/01 21:03 Order name: Urine Dipstick-Ancillary (obtain specimen); Complete Time: 21:39 rn 08/01 23:38 Order name: NPO; Complete Time: 00:10 la1 Administered Medications: 21:21 Drug: Zofran (Ondansetron) 4 mg Route: IVP; Site: right forearm; cc4 22:00 Follow up: Response: No adverse reaction; Nausea is decreased cc4 21:21 Drug: NS 0.9% 1000 ml Route: IV; Rate: 1000 ml; Site: right forearm; cc4 22:16 Follow up: IV Status: Completed infusion; IV Intake: 1000ml cc4 21:21 Drug: Demerol (meperidine) 50 mg Route: IVP; Site: right forearm; cc4 22:00 Follow up: Response: No adverse reaction; Pain is unchanged, physician notified cc4 23:45 Drug: Dilaudid (HYDROmorphone) 1 mg Route: IVP; Site: right forearm; cc4 08/02 00:00 Follow up: Response: No adverse reaction; Pain is decreased cc4 08/01 23:45 Drug: SOLU-Medrol (methylPrednisoLONE) 125 mg Route: IVP; Site: right forearm; cc4 08/02 00:00 Follow up: Response: No adverse reaction; Pain is decreased cc4 08/01 23:45 Drug: Rocephin (cefTRIAXone) 1 grams Route: IV; Rate: calculated rate; Site: right cc4 forearm; 08/02 00:00 Follow up: Response: No adverse reaction cc4 08/01 23:50 Drug: Flagyl (metroNIDAZOLE) 500 mg Volume: 100 ml; Route: IVPB; Rate: 200 ml/hr; cc4 Infused Over: 30 mins; Site: right forearm; 08/02 00:30 Follow up: Response: No adverse reaction cc4 00:30 Drug: D5-1/2 NS with KCl 20 mEq/L 1000 ml Route: IV; Rate: 100 ml/hr; Site: right cc4 forearm; Disposition Summary: 08/01/21 23:37 Hospitalization Ordered Hospitalization Status: Inpatient Admission rn Provider: Geoff Proter rn Condition: Stable rn Problem: new rn Symptoms: have improved rn Bed/Room Type: Standard rn Location: Telemetry/MedSurg (Inpatient)(08/02/21 10:19) dw Room Assignment: [facility](08/02/21 10:19) dw Diagnosis - Crohn's disease of small intestine with intestinal obstruction rn - Abdominal pain, unspecified rn Forms: - Medication Reconciliation Form rn - SBAR form rn Signatures: Dispatcher [employer] Liana Barton RN RN Julianna Rios, RN RN bb Torrey Wooten MD MD rn Attema, Lee, [employer]-C [employer]-Cla1 Hillary Lee RN RN cc4 Sofia Hill, RN RN jh5 Corrections: (The following items were deleted from the chart) 00:24 08/01 23:37 Telemetry/MedSurg (Inpatient) elizabeth babcock 08/02 00:24 08/01 23:37 elizabeth babcock 08/02 10:19 00:24 [facility] ER HOLD bb dw 10: 00:24 ERHOLD- dw
--- NOTE | 2021-08-01 23:38 | ER ---
Nurse's Notes [facility] Name: Betsy Waldron Age: 51 yrs Sex: Female : 1970 Arrival Date: 08/01/2021 Time: 20:46 Bed 27 Private MD: Diagnosis: Crohn's disease of small intestine with intestinal obstruction;Abdominal pain, unspecified Presentation: 08/01 20:48 Chief complaint: Patient states: cramping, stabbing abdominal pain x1 hour. Coronavirus 5 screen: Vaccine status: Patient reports being unvaccinated. Client denies travel out of the [place] in the last 14 days. Ebola Screen: Patient negative for fever greater than or equal to 101.5 degrees Fahrenheit, and additional compatible Ebola Virus Disease symptoms Patient denies exposure to infectious person. Patient denies travel to an Ebola-affected area in the 21 days before illness onset. Initial Sepsis Screen: Does the patient meet any 2 criteria? Does the patient have a suspected source of infection?. Risk Assessment: Do you want to hurt yourself or someone else? Patient reports no desire to harm self or others. 20:48 Method Of Arrival: Ambulatory [facility] 20:48 Acuity: MORA 4 jh5 20:52 Acuity: MORA 3 5 21:11 Onset of symptoms was August 01, 2021 at 19:00. cc4 Triage Assessment: 20:57 General: Appears distressed, uncomfortable, slender, Behavior is anxious, crying, jh5 restless. Pain: Complains of pain in abdomen Pain currently is 10 out of 10 on a pain scale. Quality of pain is described as aching, crampy, Is lasting more than 1 hour. Neuro: No deficits noted. Level of Consciousness is awake, alert, obeys commands, Oriented to person, place, time, situation, Gait is steady, Speech is normal. Cardiovascular: Capillary refill < 3 seconds Patient's skin is warm and dry. Respiratory: Airway is patent Trachea midline Respiratory effort is even, unlabored, Respiratory pattern is regular. GI: Bowel sounds present X 4 quads. 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: 21:11 2, Full Term 1, Premature 1, Living 2 cc4 Historical: - Allergies: 20:52 Amoxicillin; jh5 20:52 Azithromycin; jh5 20:52 Morphine; jh5 20:52 Seroquel; jh5 20:52 Trazodone; jh5 20:52 Avelox; jh5 - Home Meds: 20:52 tizanidine 4 mg Oral tab 1 tab daily [Active]; oxycodone 10 mg Oral tab 1 tab three jh5 times a day [Active]; fentanyl 25 mcg/hr Topical pt72 1 patch every 72 hours [Active]; clonazepam 2 mg Oral tab 1 tab 4 times a day [Active]; - PMHx: 20:52 Bipolar disorder; breast implant illness; Chronic pain; Depression; Endometrosis; jh5 Irregular heart rate; Kidney stones; Seizures; - Immunization history:: Adult Immunizations up to date. - Social history:: Smoking status: Patient denies any tobacco usage or history of. - Family history:: not pertinent. - Hospitalizations: : No recent hospitalization is reported. Screenin:11 Abuse screen: Denies threats or abuse. Nutritional screening: No deficits noted. cc4 Tuberculosis screening: No symptoms or risk factors identified. Fall Risk None identified. Assessment: 20:59 Reassessment: Pt denies drug use, smoking, alcohol; when senior copywriter applied pulse ox to jh5 right pinky finger there was notable white powder along and under nail. Pt states she could not take any of her home pain medication due to thinking she would just throw it up; she states she is given "IV Dilaudid" because morphine makes her itch. 21:11 General: Appears distressed, uncomfortable, Behavior is cooperative, anxious. Pain: cc4 Complains of pain in abdomen Pain does not radiate. Pain currently is 10 out of 10 on a pain scale. at worst was 10 out of 10 on a pain scale. level that patient reports is acceptable is 0 out of 10 on a pain scale. Quality of pain is described as crampy, sharp, Pain began 2 hours ago. Is continuous. Neuro: No deficits noted. Level of Consciousness is awake, alert, obeys commands, Oriented to person, place, time, situation. Cardiovascular: Denies vomiting, Heart tones S1 S2. Respiratory: No deficits noted. Airway is patent Breath sounds are clear bilaterally. GI: No deficits noted. Abdomen is flat, Bowel sounds present X 4 quads. Abd is soft Abdomen is tender to palpation X 4 quads. : Denies burning with urination. EENT: No deficits noted. No signs and/or symptoms were reported regarding the EENT system. Derm: No deficits noted. Skin is intact. Musculoskeletal: No deficits noted. Capillary refill < 3 seconds, Range of motion: intact in all extremities. 21:15 Reassessment: Up \\T\\ ambulatory to restroom with urine specimen obtained with dipstick cc4 done \\T\\ micro sent to lab. 21:21 Reassessment: No changes from previously documented assessment. c/o nausea with abd. cc4 pain; # 20 g angiocath inserted right FA x 1 attempt with blood drawn \\T\\ sent to lab; converted to saline lock; IV NS hung \\T\\ infusing \\T\\ bolus rate with no s/sx's of infiltration; demerol 50 mg \\T\\ zofran 4 mg given slow IVP for pain \\T\\ nausea. 22:00 Reassessment: Reports no decrease in abdominal pain; Dr. Wooten notified \\T\\ reports cc4 awaiting CT scan results of abdomen. 22:16 Reassessment: No changes from previously documented assessment. To CT via stretcher. cc4 22:35 Reassessment: No changes from previously documented assessment. Returnd from CT via cc4 stretcher; con't ot c/o abdominal pain 10/10 on pain scale with Dr. Wooten notified \\T\\ con't to report that he needs CT results before ordering additional pain med. 23:45 Reassessment: No changes from previously documented assessment. Dr. Wooten in \\T\\ bedside cc4 informing pt of need to admit with v/u; con't to c/o abdominal pain 10/10 on pain scale with new orders rec'd \\T\\ medicated as ordered. 23:55 Reassessment: Resting quietly reports feeling better; swabbed for Covid-19 \\T\\ sent to cc4 lab, jesús. well. 08/02 00:00 Reassessment: Patient appears in no apparent distress at this time. Reports abdominal cc4 pain decreasing to 6/10 on pain scale; Patient states feeling better. 02:30 Reassessment: Patient appears in no apparent distress at this time. Dozing cc4 intermittently; no rooms available in med-surg; made ER hold with pt informed of hold in ER, v/u. Vital Signs: 08/01 20:48 BP 156 / 95; Pulse 110; Resp 16; Temp 98.3; Pulse Ox 100% ; jh5 21:11 BP 140 / 100; Pulse 90; Resp 18; Pulse Ox 100% on R/A; cc4 21:30 BP 137 / 81; Pulse 86; Resp 20; Pulse Ox 100% on R/A; cc4 22:00 BP 123 / 65; Pulse 88; Resp 18; Pulse Ox 100% on R/A; cc4 08/02 01:06 BP 118 / 73; Pulse 64; Resp 20; Temp 98.1(O); Pulse Ox 99% on R/A; cc4 ED Course: 08/01 20:46 Patient arrived in ED. bp1 20:52 Triage completed. [facility] 20:57 Torrey Wooten MD is Attending Physician. rn 21:01 Patient has correct armband on for positive identification. Bed in low position. Call [facility] light in reach. 21:03 Hillary Lee, ELIZABETH is Primary Nurse. cc4 21:11 No provider procedures requiring assistance completed. cc4 21:21 Labs ordered per protocol. Drawn by ED staff. CT ordered. cc4 21:21 Arm band placed on. cc4 21:39 Basic Metabolic Panel Sent. cc4 21:39 CT Abd/Pelvis - IV Contrast Only Sent. cc4 21:39 Urine Microscopic Only Sent. cc4 21:40 Basic Metabolic Panel Sent. cc4 21:40 CBC with Diff Sent. cc4 21:40 Hepatic Function Sent. cc4 21:40 Lipase Sent. cc4 22:21 Urine Culture Sent. cc4 22:43 CT Abd/Pelvis - IV Contrast Only In Process Unspecified. EDMS 23:35 Geoff Porter DO is Hospitalizing Provider. rn 08/02 00:11 COVID-19 SARS RT PCR (Document "Date of Onset" if Symptomatic) Sent. cc4 Administered Medications: 08/01 21:21 Drug: Zofran (Ondansetron) 4 mg Route: IVP; Site: right forearm; cc4 22:00 Follow up: Response: No adverse reaction; Nausea is decreased cc4 21:21 Drug: NS 0.9% 1000 ml Route: IV; Rate: 1000 ml; Site: right forearm; cc4 22:16 Follow up: IV Status: Completed infusion; IV Intake: 1000ml cc4 21:21 Drug: Demerol (meperidine) 50 mg Route: IVP; Site: right forearm; [facility] 22:00 Follow up: Response: No adverse reaction; Pain is unchanged, physician notified cc4 23:45 Drug: Dilaudid (HYDROmorphone) 1 mg Route: IVP; Site: right forearm; cc4 08/02 00:00 Follow up: Response: No adverse reaction; Pain is decreased [facility] 08/01 23:45 Drug: SOLU-Medrol (methylPrednisoLONE) 125 mg Route: IVP; Site: right forearm; 4 08/02 00:00 Follow up: Response: No adverse reaction; Pain is decreased [facility] 08/01 23:45 Drug: Rocephin (cefTRIAXone) 1 grams Route: IV; Rate: calculated rate; Site: right cc4 forearm; 08/02 00:00 Follow up: Response: No adverse reaction [facility] 11 23:50 Drug: Flagyl (metroNIDAZOLE) 500 mg Volume: 100 ml; Route: IVPB; Rate: 200 ml/hr; cc4 Infused Over: 30 mins; Site: right forearm; 08/02 00:30 Follow up: Response: No adverse reaction [facility] 00:30 Drug: D5-1/2 NS with KCl 20 mEq/L 1000 ml Route: IV; Rate: 100 ml/hr; Site: right cc4 forearm; Intake: 08/01 22:16 IV: 1000ml; Total: 1000ml. cc4 Outcome: 23:37 Decision to Hospitalize by Provider. elizabeth 08/02 11:42 Patient left the ED. iw Signatures: Dispatcher [employer] Vanessa Porras RN RN Torrey William MD MD rn Paniauga, Brittany bp1 Cooper, Christie, RN RN cc4 Sofia Hill RN RN jh5
[2021-08-01] MEDS ORDERED: HYDROMORPHONE HCL 2 MG/ML inj ONE (23:41)
[2021-08-01] MEDS ORDERED: METHYLPREDNISOLONE 125 MG INJ ONE (23:42)
[2021-08-01] MEDS ORDERED: METRONIDAZOLE 500mg IVPB 500 MG/100 ML BAG IV ONE (23:42)
[2021-08-01] MEDS ORDERED: CEFTRIAXONE 1000 MG/VIAL ONE (23:43)
[2021-08-02] MEDS ORDERED: D5.45NS W/KCL 20MEQ 1,000 ML IV ONE ×2 (00:12→08:58)
--- NOTE | 2021-08-02 00:39 | P.HP ---
Certification for Inpatient Patient admitted to: Inpatient With expected LOS: >2 Midnights Patient will require the following post-hospital care: None Practitioner: I am a practitioner with admitting privileges, knowledge of patient current condition, hospital course, and medical plan of care. Services: Services provided to patient in accordance with Admission requirements found in Title 42 Section 412.3 of the Code of Federal Regulations Patient History Date of Service: 08/02/21 Primary Care Provider: Dr. Shahid Reason for admission: Small bowel obstruction History of Present Illness: 51-year-old female with history of BPD, chronic pain, seizure disorder presents emergency department for abdominal pain. Patient reports that she had similar episodes in the past this worse than others. Pain started yesterday described as cramping and episodic, severe. Patient reports that she did have 3 bowel movements yesterday patient was evaluated in the emergency department labs were significant for white blood cell count 10.7 hemoglobin 10.9 hematocrit 34.2 potassium 3.4 GFR [address] abdomen pelvis with contrast demonstrates acute small bowel obstruction with a transition point in the right pelvis likely due to several loops of inflamed collapsed ileum the appearance is most concerning for inflammatory bowel disease although infection should be excluded clinically, trace free fluid without pneumatosis or free air, mild colonic constipation. Case was discussed with general surgery by ED provider, recommendations for inpatient admission with IV antibiotics, steroids and n.p.o. Allergies moxifloxacin HCl [From Avelox] Allergy (Verified 08/07/18 14:04) Hives/Rash Home Medications: Fentanyl 1 each TD Q72H 11/26/15 Oxycodone HCl/Acetaminophen [Percocet 10-325 mg Tablet] 1 tab PO Q4HP PRN 11/26/15 Vortioxetine Hydrobromide [Trintellix] 10 mg PO 30 MIN BEFORE HS 11/26/15 Alprazolam [Xanax] 1 tab PO DAILY #1 tablet 10/05/17 - Past Medical/Surgical History Diabetic: No -: depression -: anxiety -: chronic pain -: endometreosis -: back surgery -: hysterectomy -: tubal -: left knee surg -: breast reduction -: gastric sleeve -: tummy tuck and thigh lift -: endometriosis Psychosocial/ Personal History: Unemployed, lives with family - Family History Father -: Diabetes - Social History Smoking Status: Never smoker Alcohol use: No CD- Drugs: No Caffeine use: No Place of Residence: Home Review of Systems 10-point ROS is otherwise unremarkable Gastrointestinal: Nausea, Abdominal Pain Physical Examination - Physical Exam General: Alert, In no apparent distress, Oriented x3 HEENT: Atraumatic, PERRLA, Mucous membr. moist/pink, EOMI, Sclerae nonicteric Neck: Supple, 2+ carotid pulse no bruit, No LAD, Without JVD or thyroid abnormality Respiratory: Clear to auscultation bilaterally, Normal air movement Cardiovascular: Regular rate/rhythm, Normal S1 S2 Gastrointestinal: Tenderness (Mild generalized abdominal tenderness) Musculoskeletal: No tenderness Integumentary: No rashes Neurological: Normal speech, Normal strength at 5/5 x4 extr, Normal tone, Normal affect - Studies Laboratory Data (last 24 hrs) 08/01/21 21:18: WBC 10.70, Hgb 10.9 L, Hct 34.2 L, Plt Count 277 08/01/21 21:18: Sodium 142, Potassium 3.4 L, BUN 12, Creatinine 1.14, Glucose 96, Total Bilirubin 0.2, AST 16, ALT 18, Alkaline Phosphatase 111, Lipase 177 Assessment and Plan - Plan Assessment: Acute small bowel obstruction likely secondary to inflammatory bowel disease BPD/depression/anxiety Chronic pain on chronic opioid/benzodiazepine therapy Seizure disorder Plan: Acute small bowel obstruction likely secondary to inflammatory bowel disease: General surgery and GI consult in place, continue with IV antibiotics Flagyl/Rocephin in addition to IV Solu-Medrol for treatment of possible inflammatory bowel disease. N.p.o. at this time, patient has not been vomiting will hold off on NG tube at this time. BPD/depression/anxiety: We will need to hold oral medications at this time, patient reports that she takes clonazepam for both seizure and anxiety 2 mg 4 times a day. Will provide with as needed IV Ativan Chronic pain on chronic opioid/benzodiazepine therapy: As needed pain medications and benzodiazepine Seizure disorder: Patient reports that she takes clonazepam 2 mg 4 times a day, reports last seizure was 2 years ago. Will provide patient with Ativan 1 mg IV 3 times daily as needed. Discussed with patient that she needs to discuss further with her primary care doctor in regards to seizure prophylaxis. DVT PPX: Lovenox Code status: Full code Discharge Plan: Home Plan to discharge in: Greater than 2 days - Advance Directives Does patient have a Living Will: No Does patient have a Durable POA for Healthcare: No - Code Status/Comfort Care Code Status Assessed: Yes (Full code) Critical Care: No Time Spent Managing Pts Care (In Minutes): 55
[2021-08-02 03:11] VITALS: BMI 21.1
[2021-08-02] MEDS: METRONIDAZOLE 500mg IVPB 500 MG/100 ML BAG IV SCH ×3 (03:36→16:00)
[2021-08-02] MEDS: D5.45NS W/KCL 20MEQ 1,000 ML IV SCH ×3 (03:36→20:55)
[2021-08-02] MEDS ORDERED: LORazepam 2 MG/ML VIAL IV PRN (03:36)
[2021-08-02] MEDS: METHYLPREDNISOLONE 40 MG INJ IV SCH ×3 (03:36→16:12)
[2021-08-02] MEDS ORDERED: ONDANSETRON 4 MG/2 ML VIAL IV PRN (03:36)
[2021-08-02] MEDS ORDERED: HYDROMORPHONE HCL 2 MG/ML inj ONE ×2 (04:16→10:34)
[2021-08-02] MEDS ORDERED: ONDANSETRON 4 MG/2 ML VIAL ONE (04:22)
[2021-08-02] MEDS: HYDROMORPHONE HCL 1 MG/ML INJ IV PRN ×5 (04:28→23:07)
[2021-08-02 05:32] LABS: Absolute Lymphocytes (CBC) 0.6 K/uL (0.7-4.9); Basophils % 0.2 % (0-1.3); Hematocrit 32.5 % (36.0-45.0); Lymphocytes % 7.6 % (15.3-44.8); MPV 8.3 fL (7.6-11.3); RBC Red Blood Cell Count 3.85 M/uL (3.86-4.86)
[2021-08-02 05:54] LABS: Albumin 3.4 g/dL (3.4-5.0); Bilirubin Total 0.3 mg/dL (0.2-1.0); Magnesium 2.2 mg/dL (1.8-2.4); Potassium 4.7 mmol/L (3.5-5.1); Protein, Total 7.2 g/dL (6.4-8.2); Thyroid Stimulating Hormone 0.73 uIU/mL (0.360-3.740)
--- NOTE | 2021-08-02 06:16 | P.PN ---
Subjective Date of Service: 08/02/21 Primary Care Provider: Dr. Shahid; Pain management-Dr. Caballero Chief Complaint: Small bowel obstruction Subjective: Other (Patient reports bowel movement last night. Pain improved.) Physical Examination - Vital Signs Respirations: 20 Pulse Ox (%): 100 - Studies Laboratory Data (last 24 hrs) 08/01/21 21:18: WBC 10.70, Hgb 10.9 L, Hct 34.2 L, Plt Count 277 08/01/21 21:18: Sodium 142, Potassium 3.4 L, BUN 12, Creatinine 1.14, Glucose 96, Total Bilirubin 0.2, AST 16, ALT 18, Alkaline Phosphatase 111, Lipase 177 Assessment & Plan Discharge Plan: Home Plan to discharge in: 72 Hours Physician Review Additional Text: COVID: negative CT Scan: Demonstrates acute small bowel obstruction with a transition point in the right pelvis likely due to several loops of inflamed collapsed ileum the appearance is most concerning for inflammatory bowel disease although infection should be excluded clinically. Trace free fluid without pneumatosis or free air noted. Mild colonic constipation. KUB: Pending Physical Exam: General: Alert, In no apparent distress, Oriented x3 HEENT: Neck supple Respiratory: Clear to auscultation bilaterally, Normal air movement Cardiovascular: Regular rate/rhythm, Normal S1 S2 Gastrointestinal: No significant distention. Tenderness to the abdomen. D ecreased bowel sounds. Musculoskeletal: No tenderness Integumentary: No rashes Neurological: Normal speech, Normal strength at 5/5 x4 extr, Normal tone, Normal affect Impression: Abdominal pain secondary to acute small bowel obstruction with transition point to the right pelvis near ileum suspect secondary to inflammatory bowel disease Bipolar disorder Chronic pain on chronic opioid/benzodiazepine therapy Seizure disorder Anemia likely of chronic disease Acute renal insufficiency likely mild dehydration Plan: Abdominal pain secondary to acute small bowel obstruction with transition point to the right pelvis near ileum suspect secondary to inflammatory bowel disease: Continue with IV Rocephin and Flagyl. Patient also on IV Solu-Medrol. Patient remains n.p.o. except medication. Will check KUB this morning. If improved will consider clear liquid diet. Encourage ambulation. Will provide incentive spirometer. Surgery and GI consulted. Await recommendations. Bipolar disorder: Restart clonazepam 2 mg 4 times a day. Chronic pain on chronic opioid/benzodiazepine therapy: Restart home medications including fentanyl patch, OxyContin 10 mg 3 times a day. Patient is seen by pain management as an outpatient. Seizure disorder: Restart clonazepam. Anemia likely of chronic disease: Will check iron and B12 studies. Acute renal insufficiency likely mild dehydration: Continue with IV fluids. Electrolyte protocol in place. DVT PPX: Lovenox Code status: Full code Discharge Plan: Home at discharge. Time Spent Managing Pts Care (In Minutes): 55
[2021-08-02 07:47] LABS: Blood Morphology Comment NOT SEEN (NOT SEEN); Platelet Estimate ADEQ
[2021-08-02] MEDS ORDERED: TRIAZOLAM 0.25 MG PO PRN (08:08)
[2021-08-02] MEDS ORDERED: clonazePAM 1 MG TAB ONE (08:44)
[2021-08-02] MEDS ORDERED: FOLIC ACID 1 MG TABLET ONE (08:45)
[2021-08-02] MEDS ORDERED: FENTANYL 25 MCG/PATCH TD ONE (08:45)
[2021-08-02] MEDS ORDERED: OXYCODONE *CR* 10 MG TAB PO ONE (08:45)
[2021-08-02] MEDS ORDERED: THIAMINE HCL 100 MG TABLET ONE (08:45)
[2021-08-02] MEDS ORDERED: METRONIDAZOLE 500mg IVPB 500 MG/100 ML BAG IV ONE (08:46)
[2021-08-02] MEDS ORDERED: ENOXAPARIN 40 MG/0.4 ML SQ ONE (08:46)
[2021-08-02] MEDS ORDERED: METHYLPREDNISOLONE 40 MG INJ ONE (08:46)
[2021-08-02] MEDS: FENTANYL 25 MCG/PATCH TD SCH ×2 (08:48→09:00)
[2021-08-02] MEDS: CEFTRIAXONE 1 GM/NS 50 ML 1 GM/50 ML BAG IV SCH (08:48)
[2021-08-02] MEDS: THIAMINE HCL 100 MG TABLET PO SCH (08:50)
[2021-08-02] MEDS: ENOXAPARIN 40 MG/0.4 ML SQ SCH (08:50)
[2021-08-02] MEDS: FOLIC ACID 1 MG TABLET PO SCH (08:50)
[2021-08-02] MEDS: clonazePAM 1 MG TAB PO SCH ×4 (08:50→20:49)
[2021-08-02] MEDS ORDERED: OXYCODONE *CR* 10 MG TAB PO SCH (09:00)
--- NOTE | 2021-08-02 09:11 | RAD REPORT ---
EXAM DESCRIPTION: RAD - Abdomen 1 View (KUB) - 08/02/2021 5:17 am CLINICAL HISTORY: SBO Pain COMPARISON: Abdomen Pelvis W Contrast dated 08/01/2021 FINDINGS: Mildly prominent and dilated small bowel loops in the central abdomen noted compatible wit h mechanical small bowel obstruction. Significant stool is retained throughout the colon. Postsurgica l changes affect the stomach. Cholecystectomy clips. Lumbar hardware is present.
[2021-08-02] MEDS: OXYCODONE HCL 5 MG TAB PO SCH ×3 (09:37→20:50)
--- NOTE | 2021-08-02 10:51 | RAD REPORT ---
EXAM DESCRIPTION: ADDENDUM #1 THIS REPORT CONTAINS FINDINGS THAT MAY BE CRITICAL TO PATIENT CARE: The findings were verbally discu ssed via telephone conference with Dr. Torrey Wooten by Dr. Salud Perez on 08/01/2021 11:24 PM FINISH OFF OPERATOR . The results were acknowledged and understood. Electronically signed by: Salud Perez MD 08/01/2021 11:24 PM FINISH OFF OPERATOR End of Addendum PROCEDURE: CT Abdomen Pelvis W Contrast CLINICAL HISTORY: 51 years Female Abd pain; Nausea / vomiting. 302). TECHNIQUE: Contiguous axial images obtained through the abdomen and pelvis following both oral and i ntravenous contrast administration. Coronal and sagittal reformatted images provided. This CT exam was performed according to our departmental dose-optimization program, which includes on e or more of the following dose reduction techniques: automated exposure control, adjustment of the m A and/or kV according to patient size, and/or use of iterative reconstruction technique. COMPARISON: Report from the prior exam dated 11/10/2020. Images not provided for comparison. FINDINGS: Prior gastric sleeve surgery. There is a small bowel obstruction with the transition point in the right pelvis. Obstructed loops of small bowel measure up to 3 cm in caliber. At and distal to the transition point, there are several loops of inflamed, collapsed ileum. The appendix is not seen. There is distal colonic constipation without colonic inflammation or obstru ction. There is a small amount of free fluid in the pelvis without pneumatosis or free intraperitonea l air. Bilateral breast implants. The lung bases are clear. Prior cholecystectomy without biliary dilatation . The liver, pancreas, spleen, adrenal glands, kidneys, and urinary bladder are normal. Prior hysterectomy. Postsurgical changes at L5-S1 without acute fracture or aggressive osseous lesion. IMPRESSION: Acute small bowel obstruction with the transition point in the right pelvis, due to osorio ral loops of inflamed, collapsed ileum. The appearance is most concerning for inflammatory bowel dise ase although infection should be excluded clinically. Trace free fluid without pneumatosis or free air. Mild colonic constipation. Electronically signed by: Salud Perez MD 08/01/2021 11:17 PM FINISH OFF OPERATOR Due to temporary technical issues with the PACS/Fluency reporting system, reports are being signed by the in house radiologist without review as a courtesy to ensure prompt reporting. The interpreting r adiologist is fully responsible for the content of the report.
[2021-08-02 11:31] LABS: Ferritin 6.4 ng/mL (8-388)
[2021-08-02] MEDS ORDERED: FLEET ENEMA ADULT PR ONE (11:41)
[2021-08-02] MEDS: PSYLLIUM 1 PKT PO SCH ×2 (12:27→20:49)
[2021-08-02] MEDS: DOCUSATE NA 100 MG CAP PO SCH (12:27)
[2021-08-02] MEDS ORDERED: IBUPROFEN 400 MG TAB PO PRN (16:34)
[2021-08-02] MEDS: TIZANIDINE 4 MG TABLET PO SCH ×3 (20:51→23:07)
[2021-08-02] MEDS: ZOLPIDEM TARTRATE 10 MG TABLET PO PRN (23:09)
[2021-08-03] MEDS: METHYLPREDNISOLONE 40 MG INJ IV SCH ×3 (01:00→16:13)
[2021-08-03] MEDS: METRONIDAZOLE 500mg IVPB 500 MG/100 ML BAG IV SCH ×3 (01:00→16:13)
[2021-08-03] MEDS: HYDROMORPHONE HCL 1 MG/ML INJ IV PRN ×2 (03:41→07:43)
--- NOTE | 2021-08-03 06:00 | P.PN ---
Subjective Date of Service: 08/03/21 Primary Care Provider: Dr. Shahid; Pain management-Dr. Caballero Chief Complaint: Small bowel obstruction Subjective: Improving, Other (Less abdominal distention noted. Had minimal bowel movement yesterday. Able to tolerate clear liquid diet) Physical Examination - Vital Signs Temperature: 97.6 F Blood Pressure: 127/70 Pulse: 64 Respirations: 18 Pulse Ox (%): 98 Assessment & Plan Discharge Plan: Home Plan to discharge in: 48 Hours Physician Review Additional Text: COVID: negative CT Scan: Demonstrates acute small bowel obstruction with a transition point in the right pelvis likely due to several loops of inflamed collapsed ileum the appearance is most concerning for inflammatory bowel disease although infection should be excluded clinically. Trace free fluid without pneumatosis or free air noted. Mild colonic constipation. KUB: COMPARISON: Abdomen Pelvis W Contrast dated 08/01/2021 FINDINGS: Mildly prominent and dilated small bowel loops in the central abdomen noted compatible with mechanical small bowel obstruction. Significant stool is retained throughout the colon. Postsurgical changes affect the stomach. Cholecystectomy clips. Lumbar hardware is present. Follow up KUB 08/03/2021: COMPARISON: Abdomen 1 View (KUB) dated 08/02/2021; Abdomen Pelvis W Contrast dated 08/01/2021 FINDINGS: Nonobstructive bowel gas pattern. No acute osseous abnormality.Visualized lungs are unremarkable.No abnormal calcifications. Large perkins colonic stool burden. Fusion hardware in the lower spine. Surgical clips in the right upper quadrant. Chain sutures in the epigastrium. IMPRESSION: Nonobstructive bowel gas pattern. Dilated fluid-filled small bowel would be radiographically occult. Large perkins colonic stool burden. Physical Exam: General: Alert, In no apparent distress, Oriented x3 HEENT: Neck supple Respiratory: Clear to auscultation bilaterally, Normal air movement Cardiovascular: Regular rate/rhythm, Normal S1 S2 Gastrointestinal: No significant distention. Tenderness to the abdomen. Decreased bowel sounds. Musculoskeletal: No tenderness Integumentary: No rashes Neurological: Normal speech, Normal strength at 5/5 x4 extr, Normal tone, Normal affect Impression: Abdominal pain secondary to acute small bowel obstruction with transition point to the right pelvis near ileum suspect secondary to inflammatory bowel disease, resolving Bipolar disorder Chronic pain on chronic opioid/benzodiazepine therapy Seizure disorder Anemia likely of chronic disease with B12 deficiency Acute renal insufficiency likely mild dehydration Plan: Abdominal pain secondary to acute small bowel obstruction with transition point to the right pelvis near ileum suspect secondary to inflammatory bowel disease, resolving: Overall improved. Some minimal passage of stool yesterday. KUB shows nonobstructive pattern. Will give another Fleet enema today along with oral mineral oil. Will advance diet to full liquid. Encourage ambulation. Continue IV fluids. Continue IV Rocephin and Flagyl. Continue IV Solu-Medrol. Encourage ambulation. Case discussed in detail with surgery yesterday. No surgical intervention required. Will discuss with GI. Patient will need to be on a high-fiber diet at discharge with continued bowel program as an outpatient due to her chronic pain use. Anticipate continued improvement over the next 24 to 48 hours. Bipolar disorder: Continue home medicationclonazepam 2 mg 4 times a day. Chronic pain on chronic opioid/benzodiazepine therapy: Continue home medicationfentanyl patch 25 mcg every 72 hours and OxyContin 10 mg 3 times a day. Patient is seen by pain management as an outpatient. Seizure disorder: Continue clonazepam. Anemia likely of chronic disease with B12 deficiency: Monitor H/H. Will add B12 supplementation. Acute renal insufficiency likely mild dehydration: Continue with IV fluids. Overall improved. Electrolyte protocol in place. DVT PPX: Lovenox Code status: Full code Discharge Plan: Home at discharge. Time Spent Managing Pts Care (In Minutes): 55
[2021-08-03 06:49] LABS: Absolute Lymphocytes (CBC) 0.9 K/uL (0.7-4.9); Basophils % 0.4 % (0-1.3); Hematocrit 26.6 % (36.0-45.0); Lymphocytes % 7.9 % (15.3-44.8); MPV 8.5 fL (7.6-11.3)
[2021-08-03 07:13] LABS: Albumin 3.1 g/dL (3.4-5.0); Bilirubin Total 0.3 mg/dL (0.2-1.0); Potassium 4.7 mmol/L (3.5-5.1); Protein, Total 6.4 g/dL (6.4-8.2)
[2021-08-03] MEDS: CEFTRIAXONE 1 GM/NS 50 ML 1 GM/50 ML BAG IV SCH (07:44)
[2021-08-03] MEDS: clonazePAM 1 MG TAB PO SCH ×4 (07:45→20:10)
[2021-08-03] MEDS: CYANOCOBALAMIN 1,000 MCG TAB PO SCH (07:45)
[2021-08-03] MEDS: THIAMINE HCL 100 MG TABLET PO SCH (07:45)
[2021-08-03] MEDS: ENOXAPARIN 40 MG/0.4 ML SQ SCH (07:45)
[2021-08-03] MEDS: DOCUSATE NA 100 MG CAP PO SCH (07:45)
[2021-08-03] MEDS: FOLIC ACID 1 MG TABLET PO SCH (07:46)
[2021-08-03] MEDS: D5.45NS W/KCL 20MEQ 1,000 ML IV SCH ×3 (07:47→22:27)
[2021-08-03] MEDS: PSYLLIUM 1 PKT PO SCH ×2 (07:47→20:13)
--- NOTE | 2021-08-03 07:52 | RAD REPORT ---
EXAM DESCRIPTION: RAD - Abdomen 1 View (KUB) - 08/03/2021 5:58 am CLINICAL HISTORY: SBO COMPARISON: Abdomen 1 View (KUB) dated 08/02/2021; Abdomen Pelvis W Contrast dated 08/01/2021 FINDINGS: Nonobstructive bowel gas pattern. No acute osseous abnormality.Visualized lungs are unrema rkable.No abnormal calcifications. Large perkins colonic stool burden. Fusion hardware in the lower spine . Surgical clips in the right upper quadrant. Chain sutures in the epigastrium. IMPRESSION: Nonobstructive bowel gas pattern. Dilated fluid-filled small bowel would be radiographic ally occult. Large perkins colonic stool burden.
[2021-08-03] MEDS ORDERED: FLEET ENEMA ADULT PR ONE (07:57)
[2021-08-03] MEDS ORDERED: MINERAL OIL 30 ML UCUP PO ONE (07:57)
--- NOTE | 2021-08-03 08:40 | CON ---
Date of Consultation: 08/01/2021 Reason For Consultation: Small bowel obstruction. History Of Present Illness: The patient is a 51-year-old female, who has multiple medical problems i ncluding chronic pain syndrome, being followed by Dr. Caballero, presented to the emergency room with acute onset of abdominal pain. Has nausea, but no vomiting. She has had similar episodes in the pas t. The pain was started yesterday, described as cramping and severe. Yesterday, the patient had 3 b owel movements and has not passed gas since. She has had problems with constipation with only able t o go to the bathroom once to twice a week. She is on somewhat of a bowel regimen that obviously is n ot working well for her. There is no blood in her stool. No dysuria or hematuria. No sore throat, runny nose, cough, headaches, or dizziness. No chest pain. No fever or chills. Review of Systems: Otherwise unremarkable. Past Medical History: Significant for depression, anxiety, chronic pain, endometriosis. Past Surgical History: Back surgery, hysterectomy, tubal ligation, left knee surgery, breast reducti on with implant, gastric sleeve surgery, tummy tuck and dilate endometriosis. Allergies: MOXIFLOXACIN. Social History: The patient does not smoke. Denies drinking alcohol. Family History: Significant for diabetes. Physical Examination: Vital Signs: Her vitals are stable. She is afebrile. General: She is awake, alert, and oriented x3. Head and Neck: Cranial nerves 2 through 12 are grossly within normal limits. No neck masses. No JV D. Throat clear. Neck is supple. Chest: Clear. Heart: S1, S2. Abdomen: Soft, nondistended. Positive bowel sounds. Minimal tenderness. No rebound, rigidity, or guarding. Extremities: Adequately perfused. Nontender. Neuro: Nonfocal. Laboratory Data: Shows a normal white count, however, she does have a left shift. Chemistry reviewe d. Her procalcitonin is normal. Urinalysis; 1+ esterase. COVID negative. CT of the abdomen and pe lvis reviewed, shows dilated small bowel, stool in the colon, no pneumatosis, no free air. She had a KUB done afterwards, which showed large amount of stool in her colon right side and left side with m ild dilatation of the small bowel loops, some inflammatory changes in the distal small bowel. Assessment: A 51-year-old female with multiple medical problems with constipation, abdominal pain an d enteritis. Recommendations: The patient needs a bowel regimen as she is on fentanyl patch and OxyContin, and sh e needs Metamucil, Colace, enemas as needed, GI follow up. For the enteritis, see if she needs the s teroids which she is on. She does not have a surgical abdomen at this time. She does not need any s urgical intervention at this time. We will follow her while she is in the hospital about her issues, bowel regimen to prevent constipation. Plan of care discussed in detail with Dr. Porter. CHENCHO/AD Voice ID: [id number] Report ID: [id number]
--- NOTE | 2021-08-03 10:09 | PN ---
Date of Progress Note: 08/03/2021 Subjective: The patient is awake, alert, complaining of crampy abdominal pain. She had a bowel move ment yesterday. X-ray done this morning shows a nonobstructive bowel pattern, locked stool in her co nolvia. Objective: Vital Signs: Stable, afebrile. Abdomen: Benign. Minimal tenderness, no peritonitis. Laboratory Data: Reviewed. Assessment: Severe constipation due to opioid use. Recommendation: GI followup. Tap water enema. High-fiber diet. Bowel regimen as ordered. Perhaps medication that deals specifically with opiate induced constipation would be helpful for this patien t. We will await GI recommendations. CHENCHO/AD Voice ID: [id number] Report ID: [id number]
[2021-08-03] MEDS: OXYCODONE HCL 5 MG TAB PO SCH ×3 (10:37→20:10)
[2021-08-03] MEDS: DICYCLOMINE HCL 10 MG CAP PO PRN ×2 (14:26→20:12)
[2021-08-03] MEDS: TIZANIDINE 4 MG TABLET PO SCH (20:10)
[2021-08-03] MEDS: ZOLPIDEM TARTRATE 10 MG TABLET PO PRN (22:27)
[2021-08-04] MEDS: METHYLPREDNISOLONE 40 MG INJ IV SCH ×2 (00:24→08:16)
[2021-08-04] MEDS: METRONIDAZOLE 500mg IVPB 500 MG/100 ML BAG IV SCH ×2 (00:24→07:57)
[2021-08-04] MEDS: DICYCLOMINE HCL 10 MG CAP PO PRN (02:51)
[2021-08-04] MEDS: D5.45NS W/KCL 20MEQ 1,000 ML IV SCH (05:36)
--- NOTE | 2021-08-04 05:58 | P.PN ---
Subjective Date of Service: 08/04/21 Primary Care Provider: Dr. Shahid; Pain management-Dr. Caballero Chief Complaint: Small bowel obstruction Subjective: Improving, Doing well Physical Examination - Vital Signs Temperature: 97.6 F Blood Pressure: 149/75 Pulse: 45 Respirations: 18 Pulse Ox (%): 98 Assessment & Plan Discharge Plan: Home Plan to discharge in: 24 Hours Physician Review Additional Text: COVID: negative CT Scan: Demonstrates acute small bowel obstruction with a transition point in the right pelvis likely due to several loops of inflamed collapsed ileum the appearance is most concerning for inflammatory bowel disease although infection should be excluded clinically. Trace free fluid without pneumatosis or free air noted. Mild colonic constipation. KUB: COMPARISON: Abdomen Pelvis W Contrast dated 08/01/2021 FINDINGS: Mildly prominent and dilated small bowel loops in the central abdomen noted compatible with mechanical small bowel obstruction. Significant stool is retained throughout the colon. Postsurgical changes affect the stomach. Cholecystectomy clips. Lumbar hardware is present. Follow up KUB 08/03/2021: COMPARISON: Abdomen 1 View (KUB) dated 08/02/2021; Abdomen Pelvis W Contrast dated 08/01/2021 FINDINGS: Nonobstructive bowel gas pattern. No acute osseous abnormality.Vis ualized lungs are unremarkable.No abnormal calcifications. Large perkins colonic stool burden. Fusion hardware in the lower spine. Surgical clips in the right upper quadrant. Chain sutures in the epigastrium. IMPRESSION: Nonobstructive bowel gas pattern. Dilated fluid-filled small bowel would be radiographically occult. Large perkins colonic stool burden. Physical Exam: General: Alert, In no apparent distress, Oriented x3 HEENT: Neck supple Respiratory: Clear to auscultation bilaterally, Normal air movement Cardiovascular: Regular rate/rhythm, Normal S1 S2 Gastrointestinal: No significant distention. No significant abdominal pain noted. Soft. Musculoskeletal: No tenderness Integumentary: No rashes Neurological: Normal speech, Normal strength at 5/5 x4 extr, Normal tone, Normal affect Impression: Abdominal pain secondary to acute small bowel obstruction with transition point to the right pelvis near ileum suspect secondary to inflammatory bowel disease, resolved Bipolar disorder Chronic pain on chronic opioid/benzodiazepine therapy Seizure disorder Anemia likely of chronic disease with B12 deficiency Acute renal insufficiency likely mild dehydration Plan: Abdominal pain secondary to acute small bowel obstruction with transition point to the right pelvis near ileum suspect secondary to inflammatory bowel disease, resolved: Patient doing at this time. Patient has had multiple bowel movements. Will give another Fleet enema today. KUB shows no further nonobstructive pattern. We will plan for discharge today. Patient will continue with high- fiber diet at home. Patient should be on a bowel regimen since he is taking chronic pain medication. Patient may continue with stool softener daily and MiraLAX as needed. At discharge patient will continue with Flagyl 500 mg 3 times a day for 5 more days. Patient will also continue with lactobacillus 1 pill 3 times a day. Recommend follow-up with GI in the next 2 to 4 weeks to monitor her progress and further address her constipation. Patient may benefit with medication specific for opioid-induced constipation. This can be further addressed with GI. Bipolar disorder: Continue home medicationclonazepam 2 mg 4 times a day. Chronic pain on chronic opioid/benzodiazepine therapy: Continue home medicationfentanyl patch 25 mcg every 72 hours and OxyContin 10 mg 3 times a day. Patient is seen by pain management as an outpatient. Seizure disorder: Continue clonazepam. Anemia likely of chronic disease with B12 deficiency: Continue B12 supplementation at discharge Acute renal insufficiency likely mild dehydration: Overall improved. DVT PPX: Lovenox Code status: Full code Discharge Plan: Home at discharge. Time Spent Managing Pts Care (In Minutes): 55
[2021-08-04 06:17] LABS: Absolute Lymphocytes (CBC) 0.7 K/uL (0.7-4.9); Basophils % 0.2 % (0-1.3); Hematocrit 26.8 % (36.0-45.0); Lymphocytes % 7.5 % (15.3-44.8); RBC Red Blood Cell Count 3.22 M/uL (3.86-4.86)
[2021-08-04 06:28] LABS: Albumin 3.1 g/dL (3.4-5.0); Bilirubin Total 0.2 mg/dL (0.2-1.0); Magnesium 2.1 mg/dL (1.8-2.4); Potassium 4.2 mmol/L (3.5-5.1); Protein, Total 6.4 g/dL (6.4-8.2)
[2021-08-04] MEDS ORDERED: FLEET ENEMA ADULT PR ONE (07:15)
--- NOTE | 2021-08-04 07:50 | P.DS ---
Admission Date: 08/02/21 Discharge Date: 08/04/21 Primary Care Provider: Dr. Shahid; Pain management-Dr. Caballero Disposition: ROUTINE DISCHARGE Discharge Condition: GOOD Reason for Admission: Small bowel obstruction Consultations: Surgery-Dr. Groves Procedures: COVID: negative CT Scan: Demonstrates acute small bowel obstruction with a transition point in the right pelvis likely due to several loops of inflamed collapsed ileum the appearance is most concerning for inflammatory bowel disease although infection should be excluded clinically. Trace free fluid without pneumatosis or free air noted. Mild colonic constipation. KUB: COMPARISON: Abdomen Pelvis W Contrast dated 08/01/2021 FINDINGS: Mildly prominent and dilated small bowel loops in the central abdomen noted compatible with mechanical small bowel obstruction. Significant stool is retained throughout the colon. Postsurgical changes affect the stomach. Cholecystectomy clips. Lumbar hardware is present. Follow up KUB 08/03/2021: COMPARISON: Abdomen 1 View (KUB) dated 08/02/2021; Abdomen Pelvis W Contrast dated 08/01/2021 FINDINGS: Nonobstructive bowel gas pattern. No acute osseous abnormality.Visualized lungs are unremarkable.No abnormal calcifications. Large perkins colonic stool burden. Fusion hardware in the lower spine. Surgical clips in the right upper quadrant. Chain sutures in the epigastrium. IMPRESSION: Nonobstructive bowel gas pattern. Dilated fluid-filled small bowel would be radiographically occult. Large perkins colonic stool burden. Medical Problem List: Abdominal pain secondary to acute small bowel obstruction with transition point to the right pelvis near ileum related to to opioid induced constipation, resolved Bipolar disorder Chronic pain on chronic opioid/benzodiazepine therapy Seizure disorder Anemia likely of chronic disease with B12 deficiency Acute renal insufficiency likely mild dehydration Brief History of Present Illness: 51-year-old female with history of bipolar disorder, seizure disorder, and chronic pain. Patient presented with abdominal pain. Patient was evaluated in the emergency room. Patient found to have a small bowel obstruction with transition point in the right pelvic region. Patient admitted for further treatment. Hospital Course: Patient presented with abdominal pain secondary to acute small bowel obstruction with transition point to the right pelvic region near the ileum. Stool was noted throughout the colon. This was likely related to opioid induced constipation. Patient was admitted for treatment. Patient received IV fluids with IV antibiotic therapy and steroid. Surgery was consulted. Patient did not require NG tube. Patient was given multiple Fleet enemas with improvement. KUB showed resolution of small bowel obstruction. No surgical intervention was required. Patient has improved and back to her baseline. At discharge surgery recommends the patient to be on a bowel program to help with her chronic constipation. This will include Metamucil 1 packet twice daily, docusate stool softener 100 mg daily, and a high-fiber diet. Patient may use [id number] MiraLAX as needed or fleets enema as needed for constipation. A limited supply of Bentyl 10 mg 1 pill 3 times a day as needed for abdominal cramps will be provided. Patient will continue with Flagyl 500 mg 1 pill 3 times a day for 5 more days. Recommend follow-up with GI in 2 to 4 weeks to follow-up his hospitalization and to further address her condition. Patient likely with opioid-induced constipation. Patient may benefit with specific medication for this condition. This can be further addressed by GI. Patient should also have colonoscopy in the near future as there is a family history of colon cancer. Education on chronic constipation and opiate-induced constipation will be provided. Recommend follow-up with PCP within 1 week to follow-up hospitalization. Patient with bipolar disorder. At discharge she will continue with her medications including clonazepam 2 mg 4 times a day and Halcion 1 mg at bedtime. Recommend follow-up with her PCP or psychiatrist to further address. Patient with underlying seizure disorder. Patient will continue with clonazepam 2 mg 4 times a day. Recommend follow-up with neurology as directed. Patient with chronic pain on chronic opioid. Patient will continue with her r egimen of fentanyl 25 mcg patch every 72 hours and oxycodone ER 10 mg 3 times a day. Patient will need to follow-up with her pain management physician to further address. Continue with above recommendations. Patient with mild anemia with noted B12 deficiency. At discharge patient will start B12 supplementation 1000 mcg daily. Recommend to recheck labCBC and B12 in 1 month to monitor her progress. Patient with mild renal insufficiency likely from mild dehydration. Patient received IV fluids with improvement. Patient encouraged to increase oral intake especially with her constipation. Recommend to recheck labBMP in 1 week to monitor progress. Vital Signs/Physical Exam: Temp Pulse Resp BP Pulse Ox 97.6 F 45 L 18 149/75 H 98 08/04/21 07:44 08/04/21 07:44 08/04/21 07:44 08/04/21 07:44 08/04/21 07:44 General: Alert, In no apparent distress, Oriented x3, Cooperative HEENT: Atraumatic Neck: Supple Respiratory: Clear to auscultation bilaterally, Normal air movement Cardiovascular: Normal pulses, Regular rate/rhythm Gastrointestinal: Normal bowel sounds, Soft and benign, Other (No significant abdominal pain noted. No distention noted.) Musculoskeletal: No erythema, No tenderness, No warmth Integumentary: No tenderness/swelling, No erythema, No warmth, No cyanosis Neurological: Normal speech, Normal strength at 5/5 x4 extr, Normal tone, Normal affect Laboratory Data at Discharge: WBC 9.30 K/uL (4.3-10.9) D 08/04/21 05:52 Hgb 8.6 g/dL (12.0-15.0) L 08/04/21 05:52 Hct 26.8 % (36.0-45.0) L 08/04/21 05:52 Plt Count 201 K/uL (152-406) 08/04/21 05:52 Sodium 146 mmol/L (136-145) H 08/04/21 05:52 Potassium 4.2 mmol/L (3.5-5.1) 08/04/21 05:52 BUN 10 mg/dL (7-18) 08/04/21 05:52 Creatinine 0.86 mg/dL (0.55-1.3) 08/04/21 05:52 Glucose 123 mg/dL (74-106) H 08/04/21 05:52 Magnesium 2.1 mg/dL (1.8-2.4) 08/04/21 05:52 Total Bilirubin 0.2 mg/dL (0.2-1.0) 08/04/21 05:52 AST 28 U/L (15-37) 08/04/21 05:52 ALT 23 U/L (12-78) 08/04/21 05:52 Alkaline Phosphatase 68 U/L (45-117) 08/04/21 05:52 Lipase 177 U/L (73-393) 08/01/21 21:18 Home Medications: Oxycodone HCl [Oxycodone HCl ER] 10 mg PO TID 08/02/21 Tizanidine [Zanaflex*] 4 mg PO BEDTIME 08/02/21 Triazolam [Halcion] 1 mg PO BEDTIME PRN 08/02/21 clonazePAM [Clonazepam] 2 mg PO QID 08/02/21 fentaNYL [Fentanyl] 25 mcg TOP Q72H 08/02/21 Cyanocobalamin [Vitamin B-12*] 1,000 mcg PO DAILY #90 tab 08/04/21 Dicyclomine [Bentyl*] 10 mg PO TID PRN #15 cap 08/04/21 Docusate [Colace Cap*] 100 mg PO DAILY #90 cap 08/04/21 Psyllium [Metamucil (Hydrocil)*] 1 pkt PO BID #60 packet 08/04/21 metroNIDAZOLE [Flagyl] 500 mg PO Q8H #15 tablet 08/04/21 New Medications: Dicyclomine [Bentyl*] 10 mg PO TID PRN #15 cap PRN Reason: Abdominal Cramps Docusate [Colace Cap*] 100 mg PO DAILY #90 cap metroNIDAZOLE [Flagyl] 500 mg PO Q8H #15 tablet Psyllium [Metamucil (Hydrocil)*] 1 pkt PO BID #60 packet Cyanocobalamin [Vitamin B-12*] 1,000 mcg PO DAILY #90 tab Physician Discharge Instructions: Patient presented with abdominal pain secondary to acute small bowel obstruction with transition point to the right pelvic region near the ileum. Stool was noted throughout the colon. This was likely related to opioid induced constipation. Patient was admitted for treatment. Patient received IV fluids with IV antibiotic therapy and steroid. Surgery was consulted. Patient did not require NG tube. Patient was given multiple Fleet enemas with improvement. KUB showed resolution of small bowel obstruction. No surgical intervention was required. Patient has improved and back to her baseline. At discharge surgery recommends the patient to be on a bowel program to help with her chronic constipation. This will include Metamucil 1 packet twice daily, docusate stool softener 100 mg daily, and a high-fiber diet. Patient may use [id number] MiraLAX as needed or fleets enema as needed for constipation. A limited supply of Bentyl 10 mg 1 pill 3 times a day as needed for abdominal cramps will be provided. Patient will continue with Flagyl 500 mg 3 times a day for 5 more days. Recommend follow-up with GI in 2 to 4 weeks to follow-up his hospitalization and to further address her condition. Patient likely with opioid-induced constipation. Patient may benefit with specific medication for this condition. This can be further addressed by GI. Patient should also have colonoscopy in the near future as there is a family history of colon cancer. Education on chronic constipation and opiate-induced constipation will be provided. Recommend follow-up with PCP within 1 week to follow-up hospitalization. Patient with bipolar disorder. At discharge she will continue with her med ications including clonazepam 2 mg 4 times a day and Halcion 1 mg at bedtime. Recommend follow-up with her PCP or psychiatrist to further address. Patient with underlying seizure disorder. Patient will continue with clonazepam 2 mg 4 times a day. Recommend follow-up with neurology as directed. Patient with chronic pain on chronic opioid. Patient will continue with her regimen of fentanyl 25 mcg patch every 72 hours and oxycodone ER 10 mg 3 times a day. Patient will need to follow-up with her pain management physician to further address. Continue with above recommendations. Patient with mild anemia with noted B12 deficiency. At discharge patient will start B12 supplementation 1000 mcg daily. Recommend to recheck labCBC and B12 in 1 month to monitor her progress. Patient with mild renal insufficiency likely from mild dehydration. Patient received IV fluids with improvement. Patient encouraged to increase oral intake especially with her constipation. Recommend to recheck labBMP in 1 week to monitor progress. Diet: High-fiber Activity: Ad chanel Followup: NONE,NONE [Primary Care Provider] - Time spent managing pt's care (in minutes): 55
[2021-08-04] MEDS: ENOXAPARIN 40 MG/0.4 ML SQ SCH (07:57)
[2021-08-04] MEDS: CYANOCOBALAMIN 1,000 MCG TAB PO SCH (07:57)
[2021-08-04] MEDS: clonazePAM 1 MG TAB PO SCH ×2 (07:58→12:00)
[2021-08-04] MEDS: DOCUSATE NA 100 MG CAP PO SCH (07:58)
[2021-08-04] MEDS: FOLIC ACID 1 MG TABLET PO SCH (07:58)
[2021-08-04] MEDS: CEFTRIAXONE 1 GM/NS 50 ML 1 GM/50 ML BAG IV SCH (07:59)
[2021-08-04] MEDS: OXYCODONE HCL 5 MG TAB PO SCH ×2 (07:59→13:04)
[2021-08-04] MEDS: PSYLLIUM 1 PKT PO SCH (07:59)
[2021-08-04] MEDS: THIAMINE HCL 100 MG TABLET PO SCH (07:59)
[2021-08-04 08:08] VITALS: O2SAT 100
[2021-08-04 15:19] VITALS: BP 155/83; TEMP 98.4
== END 2021-08-04 15:42 | disposition home or self-care (01) | DRG 387 ==
LOC: ER 20:44 → ERHOLD 08-02 00:28 → 2ND 08-02 11:24
PROVIDERS: ADMIT Family Medicine; ATTEND Family Medicine
DX: K50.012 Crohn's disease of small intestine with intestinal obstruction (principal); F60.3 Borderline personality disorder; F41.9 Anxiety disorder, unspecified; G40.909 Epilepsy, unspecified, not intractable, without status epilepticus; F31.9 Bipolar disorder, unspecified; D63.8 Anemia in other chronic diseases classified elsewhere; K52.9 Noninfective gastroenteritis and colitis, unspecified; K59.03 Drug induced constipation; T40.2X5A Adverse effect of other opioids, initial encounter; N28.9 Disorder of kidney and ureter, unspecified; G89.4 Chronic pain syndrome; E86.0 Dehydration; D51.9 Vitamin B12 deficiency anemia, unspecified; Z79.899 Other long term (current) drug therapy; Z98.51 Tubal ligation status; Z90.710 Acquired absence of both cervix and uterus; Z56.0 Unemployment, unspecified; Z88.5 Allergy status to narcotic agent; Z88.1 Allergy status to other antibiotic agents; Z20.822 Contact with and (suspected) exposure to COVID-19
CPT/HCPCS: 36415; 74018; 74177; 80048; 80053; 80076; 81003; 81015; 82607; 82728; 83540; 83690; 83735; 84145; 84439; 84443; 84466; 85025; 87077; 87086; 87088; 87186; 96361; 96374; 96375; 99284; J0696; J1170; J1650; J2175; J2405; J2920; J2930; J7030; Q9967; U0003

== ENCOUNTER → 2022-02-17 | Emergency (ER) | payer BC, OTHER ==
[2012-03-01 19:33] VITALS: BP 198/90
== END ==
LOC: ER 03:14
DX: Z02.9 Encounter for administrative examinations, unspecified (principal)

== ENCOUNTER 2022-10-29 08:31 | Emergency (ER) | payer OTHER ==
[2022-10-29] MEDS ORDERED: HYDROCODONE/APAP 5/325 MG TAB ONE (09:02)
--- NOTE | 2022-10-29 10:04 | RAD REPORT ---
EXAM DESCRIPTION: RAD - Ankle Left 3 View - 10/29/2022 9:53 am CLINICAL HISTORY: ankle pain, twisting COMPARISON: No comparisons FINDINGS: No fracture, dislocation or periosteal reaction. No joint effusion seen. No joint space na rrowing. No soft tissue abnormality. IMPRESSION: Negative left ankle for fracture or other acute finding.
--- NOTE | 2022-10-29 10:05 | RAD REPORT ---
EXAM DESCRIPTION: RAD - Foot Left 3 View - 10/29/2022 9:53 am CLINICAL HISTORY: PAIN, twisting injury COMPARISON: No comparisons FINDINGS: No fracture, dislocation or periosteal reaction. No acute or destructive bony process. No air or foreign body in the soft tissues. IMPRESSION: Negative left foot examination.
--- NOTE | 2022-10-29 10:24 | EDPHYS ---
[facility] Name: Betsy Waldron Age: 52 yrs Sex: Female : 1970 Arrival Date: 10/29/2022 Time: 08:33 Bed 18 Private MD: YOEL Physician Mani Jacinto HPI: 10/29 08:52 This 52 yrs old Female presents to ER via Wheelchair with complaints of Ankle Injury. [facility] 08:52 The patient presents with an injury, pain. Onset: The symptoms/episode began/occurred [facility] acutely, just prior to arrival. Associated signs and symptoms: Pertinent negatives: fever. Modifying factors: The symptoms are alleviated by nothing, the symptoms are aggravated by nothing. 10:21 The patient has experienced a previous episode, Right foot. Is a 52-year-old female [facility] with history of bipolar, breast implant illness, chronic pain, depression the presents emerged part with complaints of left lateral ankle pain after stepping in a hole and twisting her ankle. Denies other injury. Patient had a similar injury to her right foot a year ago.. Historical: - Allergies: 08:49 Amoxicillin; iw 08:49 Avelox; iw 08:49 Azithromycin; iw 08:49 Morphine; iw 08:49 Seroquel; iw 08:49 Trazodone; iw - Home Meds: 08:50 clonazepam 2 mg Oral tab 1 tab 4 times a day [Active]; fentanyl 25 mcg/hr Topical pt72 iw 1 patch every 72 hours [Active]; oxycodone 10 mg Oral tab 1 tab three times a day [Active]; tizanidine 4 mg Oral tab 1 tab daily [Active]; - PMHx: 08:49 Bipolar disorder; breast implant illness; Chronic pain; Depression; Endometrosis; iw Irregular heart rate; Kidney stones; Seizures; - Immunization history:: Adult Immunizations up to date, Client reports receiving the 2nd dose of the Covid vaccine. - Social history:: Smoking status: Patient denies any tobacco usage or history of. Patient/guardian denies using alcohol. ROS: 10:21 Constitutional: Negative for fever, chills, and weight loss, Cardiovascular: Negative [facility] for chest pain, palpitations, and edema, Respiratory: Negative for shortness of breath, cough, wheezing, and pleuritic chest pain. 10:21 MS/extremity: Positive for injury or acute deformity, pain. 10:21 All other systems are negative. Exam: 10:21 Constitutional: This is a well developed, well nourished patient who is awake, alert, jmm and in no acute distress. Head/Face: atraumatic. Eyes: EOMI, no conjunctival erythema appreciated ENT: Moist Mucus Membranes Neck: Trachea midline, Supple Chest/axilla: Normal chest wall appearance and motion. Cardiovascular: Regular rate and rhythm. No edema appreciated Respiratory: Normal respirations, no respiratory distress appreciated Abdomen/GI: Non distended Back: Normal ROM Skin: General appearance color normal 10:21 Musculoskeletal/extremity: Mild swelling noted to the left ankle, compartments are soft, full dorsalis pedis pulse, neurovascular intact. 10:21 Skin: Appearance: Color: normal in color. 10:21 Neuro: Motor: is normal. Vital Signs: 08:48 BP 103 / 78; Pulse 84; Resp 16; Temp 98.0; Pulse Ox 100% ; Weight 52.16 kg; Height 5 iw ft. 2 in. (157.48 cm); Pain 8/10; 09:02 BP 111 / 76; Pulse 81; Resp 18; Pulse Ox 100% on R/A; Pain 9/10; ld1 08:48 Body Mass Index 21.03 (52.16 kg, 157.48 cm) iw MDM: 08:55 Patient medically screened. [facility] 10:23 Data reviewed: vital signs, nurses notes. I considered the following discharge [facility] prescriptions or medication management in the emergency department Medications were administered in the Emergency Department. See MAR. Independent interpretation of the following test(s) in the Emergency Department X-Ray: My interpretation is No fracture appreciated. Counseling: I had a detailed discussion with the patient and/or guardian regarding: the historical points, exam findings, and any diagnostic results supporting the discharge/admit diagnosis, radiology results, the need for outpatient follow up, to return to the emergency department if symptoms worsen or persist or if there are any questions or concerns that arise at home. Response to treatment: the patient's symptoms have mildly improved after treatment. 10/29 08:51 Order name: Ankle Left 3 View XRAY; Complete Time: 10:07 [facility] 10/29 08:51 Order name: Foot Left 3 View XRAY; Complete Time: 10:07 [facility] 10/29 08:55 Order name: Ice pack; Complete Time: 08:57 [facility] 10/29 10:07 Order name: Raul wrap-joint; Complete Time: 10:30 [facility] Administered Medications: 09:01 Drug: HYDROcodone-acetaminophen 5 mg-325 mg 1 tabs Route: PO; ld1 Disposition: 15:11 Co-signature as Attending Physician, Mani Jacinto MD I agree with the assessment and kdr plan of care. Disposition Summary: 10/29/22 10:24 Discharge Ordered Location: Home [facility] Condition: Stable [facility] Diagnosis - Sprain of ankle [facility] Followup: [facility] - With: Frederic Frost MD - When: 2 - 3 days - Reason: Recheck today's complaints, Continuance of care, Re-evaluation by your physician Discharge Instructions: - Discharge Summary Sheet [facility] - Ankle Sprain [facility] Forms: - Medication Reconciliation Form [facility] - Thank You Letter [facility] - Antibiotic Education [facility] - Prescription Opioid Use [facility] Prescriptions: - Diclofenac Sodium 75 mg Oral Tablet Sustained Release - take 1 tablet by ORAL route 2 times per day; 30 tablet; Refills: 0, Product [facility] Selection Permitted - orphenadrine citrate 100 mg Oral Tablet Sustained Release - take 1 tablet by ORAL route 2 times per day As needed; 20 tablet; Refills: 0, [facility] Product Selection Permitted Signatures: Dispatcher [employer] Mani Solares MD MD [facility] Cassius Isidro PA PA [facility] Vanessa Barnes RN RN iw Zaira Keith RN RN ld1
--- NOTE | 2022-10-29 10:24 | ER ---
Nurse's Notes [facility] Name: Betsy Waldron Age: 52 yrs Sex: Female : 1970 Arrival Date: 10/29/2022 Time: 08:33 Bed 18 Private MD: Diagnosis: Sprain of ankle Presentation: 10/29 08:48 Chief complaint: Patient states: was wearing boots with a tall heel and stepped in a iw hole last night, rolled her left ankle and now its painful and swollen. Coronavirus screen: At this time, the client does not indicate any symptoms associated with coronavirus-19. Ebola Screen: Patient negative for fever greater than or equal to 101.5 degrees Fahrenheit, and additional compatible Ebola Virus Disease symptoms Patient denies exposure to infectious person. Initial Sepsis Screen: Does the patient meet any 2 criteria? No. Patient's initial sepsis screen is negative. Does the patient have a suspected source of infection? No. Patient's initial sepsis screen is negative. Risk Assessment: Do you want to hurt yourself or someone else? Patient reports no desire to harm self or others. Onset of symptoms was October 28, 2022. 08:48 Method Of Arrival: Wheelchair iw 08:48 Acuity: MORA 4 iw Historical: - Allergies: 08:49 Amoxicillin; iw 08:49 Avelox; iw 08:49 Azithromycin; iw 08:49 Morphine; iw 08:49 Seroquel; iw 08:49 Trazodone; iw - Home Meds: 08:50 clonazepam 2 mg Oral tab 1 tab 4 times a day [Active]; fentanyl 25 mcg/hr Topical pt72 iw 1 patch every 72 hours [Active]; oxycodone 10 mg Oral tab 1 tab three times a day [Active]; tizanidine 4 mg Oral tab 1 tab daily [Active]; - PMHx: 08:49 Bipolar disorder; breast implant illness; Chronic pain; Depression; Endometrosis; iw Irregular heart rate; Kidney stones; Seizures; - Immunization history:: Adult Immunizations up to date, Client reports receiving the 2nd dose of the Covid vaccine. - Social history:: Smoking status: Patient denies any tobacco usage or history of. Patient/guardian denies using alcohol. Screenin:02 [facility] ED Fall Risk Assessment (Adult) History of falling in the last 3 months, ld1 including since admission No falls in past 3 months (0 pts). Abuse screen: Denies threats or abuse. Denies injuries from another. Nutritional screening: No deficits noted. Tuberculosis screening: No symptoms or risk factors identified. Assessment: 09:02 General: Appears in no apparent distress. comfortable, Behavior is calm, cooperative, ld1 appropriate for age. Pain: Complains of pain in anterior aspect of left ankle and dorsum of left foot Pain does not radiate. Pain currently is 9 out of 10 on a pain scale. Quality of pain is described as throbbing, Pain began suddenly. Neuro: Level of Consciousness is awake, alert, obeys commands, Oriented to person, place, time, situation. Cardiovascular: Capillary refill < 3 seconds Patient's skin is warm and dry. Respiratory: Airway is patent Respiratory effort is even, unlabored. GI: Abdomen is flat, non-distended. : No signs and/or symptoms were reported regarding the genitourinary system. EENT: No signs and/or symptoms were reported regarding the EENT system. Derm: No signs and/or symptoms reported regarding the dermatologic system. Musculoskeletal: No signs and/or symptoms reported regarding the musculoskeletal system. Vital Signs: 08:48 BP 103 / 78; Pulse 84; Resp 16; Temp 98.0; Pulse Ox 100% ; Weight 52.16 kg; Height 5 iw ft. 2 in. (157.48 cm); Pain 8/10; 09:02 BP 111 / 76; Pulse 81; Resp 18; Pulse Ox 100% on R/A; Pain 9/10; ld1 08:48 Body Mass Index 21.03 (52.16 kg, 157.48 cm) iw ED Course: 08:33 Patient arrived in ED. as 08:35 Cassius Isidro PA is PHCP. m 08:35 Mani Jacinto MD is Attending Physician. jm 08:49 Triage completed. iw 08:50 Arm band placed on. iw 09:01 Zaira Keith, RN is Primary Nurse. ld1 09:02 Patient has correct armband on for positive identification. Placed in gown. Bed in low ld1 position. Call light in reach. Side rails up X2. machine sizer on. Pulse ox on. NIBP on. Door closed. Noise minimized. Warm blanket given. 09:02 No provider procedures requiring assistance completed. ld1 09:55 Ankle Left 3 View XRAY In Process Unspecified. EDMS 09:55 Foot Left 3 View XRAY In Process Unspecified. EDMS 10:23 Frederic Frost MD is Referral Physician. [facility] 10:32 Patient did not have IV access during this emergency room visit. ld1 Administered Medications: 09:01 Drug: HYDROcodone-acetaminophen 5 mg-325 mg 1 tabs Route: PO; ld1 Medication: 09:02 VIS not applicable for this client. ld1 Outcome: 10:24 Discharge ordered by . [facility] 10:32 Discharged to home via wheelchair, with crutches. ld1 10:32 Condition: stable 10:32 Discharge instructions given to patient, Instructed on discharge instructions, follow up and referral plans. medication usage, Demonstrated understanding of instructions, follow-up care, medications, Prescriptions given X 2. 10:32 Patient left the ED. ld1 Signatures: Dispatcher [employer] EDWI Cassius Isidro PA PA Laurie Guillen as Vanessa Barnes, FLETCHER RN Zaira Keith RN RN ld1 Corrections: (The following items were deleted from the chart) 08:50 08:48 BP 137 / 89; Pulse 84bpm; Resp 16bpm; Pulse Ox 100%; Temp 98.0F; 52.16 kg; Height iw 5 ft. 2 in.; BMI: 21.0; Pain 8/10; iw
[2022-10-29 10:37] VITALS: TEMP 98; O2SAT 100
[2022-10-29 10:38] VITALS: BP 111/76
== END 2022-10-29 10:32 | disposition home or self-care (01) ==
LOC: ER 08:31
DX: S93.402A Sprain of unspecified ligament of left ankle, initial encounter (principal)
CPT/HCPCS: 99284

== ENCOUNTER 2024-01-31 18:29 | Emergency (ER) | payer BC ==
[2024-01-31 19:31] LABS: Absolute Eosinophils 0.1 K/uL (0-0.5); Absolute Lymphocytes (CBC) 1.7 K/uL (0.7-4.9); Absolute Monocytes 0.3 K/uL (0.1-1.3); Absolute Neutrophil 2.2 K/uL (1.8-8.0); Basophils % 0.7 % (0-1.3); Eosinophils % 1.4 % (0-4.4); Hematocrit 27.9 % (36.0-45.0); Hemoglobin 8.9 g/dL (12.0-15.0); Lymphocytes % 40.1 % (15.3-44.8); MCH 23.5 pg (27.0-35.0); MCHC 31.9 g/dL (32.0-36.0); MCV 73.9 fL (80-100); MPV 7.8 fL (7.6-11.3); Neutrophils % 50.8 % (41.7-73.7); Nucleated Red Blood Cells % 0.2 % (0-0); Platelets 219 thou/uL (152-406); RBC Red Blood Cell Count 3.78 M/uL (3.86-4.86); Red Cell Distribution Width 18.3 % (12.1-15.2)
[2024-01-31] MEDS ORDERED: NA CHLORIDE 0.9% 1,000 ML ONE (19:45)
[2024-01-31] MEDS ORDERED: FENTANYL CITR 100 MCG/2 ML ONE (19:45)
[2024-01-31 19:59] LABS: Albumin 3.7 g/dL (3.4-5.0); Anion Gap 8.8 mEq/L (5.0-15.0); Bilirubin Total 0.4 mg/dL (0.2-1.0); Globulin 3.8 g/dL (2.3-3.5); Potassium 2.8 mEq/L (3.5-5.1); Protein, Total 7.5 g/dL (6.4-8.2)
[2024-01-31 20:03] LABS: Specific Gravity 1.015 (1.005-1.030); Urine Bilirubin NEGATIVE (Negative); Urine Blood Negative (Negative); Urine Clarity Clear (Clear); Urine Color Colorless (Yellow); Urine Glucose NEGATIVE (Negative); Urine Ketones NEGATIVE (Negative); Urine Microscopic Reflex YN NO UMIC; Urine Nitrite NEGATIVE (Negative); Urine Protein NEGATIVE (Negative); Urine Urobilinogen Normal (Normal)
[2024-01-31] MEDS ORDERED: POTASSIUM 25 MEQ EFFERV TAB ONE (20:31)
[2024-01-31] MEDS ORDERED: dexAMETHasone 10 MG/ML VIAL ONE (20:31)
[2024-01-31] MEDS ORDERED: HYDROMORPHONE HCL 1 MG/ML INJ ONE (21:19)
[2024-01-31] MEDS ORDERED: SMZ./TMP. 800/160 MG TABLET ONE (21:20)
--- NOTE | 2024-01-31 22:03 | ER ---
Nurse's Notes [facility] Name: Betsy Waldron Age: 53 yrs Sex: Female : 1970 Arrival Date: 01/31/2024 Time: 18:29 Bed 14 Private MD: Diagnosis: Indeterminate colitis;Proctitis Presentation: 01/30 19:15 Chief complaint: Patient states: unable to have a bowel movement since colon prep on cp4 Sunday. Coronavirus screen: Client denies travel out of the [place] in the last 14 days. At this time, the client does not indicate any symptoms associated with coronavirus-19. Ebola Screen: Patient negative for fever greater than or equal to 101.5 degrees Fahrenheit, and additional compatible Ebola Virus Disease symptoms Patient denies exposure to infectious person. Patient denies travel to an Ebola-affected area in the 21 days before illness onset. No symptoms or risks identified at this time. Initial Sepsis Screen: Does the patient meet any 2 criteria? No. Patient's initial sepsis screen is negative. Does the patient have a suspected source of infection? No. Patient's initial sepsis screen is negative. Risk Assessment: Do you want to hurt yourself or someone else? Patient reports no desire to harm self or others. Onset of symptoms was January 27, 2024. 19:15 Method Of Arrival: Ambulatory cp4 19:15 Acuity: MORA 3 cp4 Triage Assessment: 19:17 General: Appears distressed, Behavior is cooperative, appropriate for age, anxious. cp4 Pain: Complains of pain in abdomen. GI: Abdomen is round non-distended, Abdomen is tender to palpation X 4 quads. 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 - Infectious Disease History:: Denies. CDIFF, C. Auris, ESBL, MRSA (w/in 1 year), VRE (w/in 1 year), TB, . - Social history:: Smoking status: Patient denies any tobacco usage or history of. Screenin:18 [facility] ED Fall Risk Assessment (Adult) History of falling in the last 3 months, cp4 including since admission No falls in past 3 months (0 pts) Confusion or Disorientation No (0 pts) Intoxicated or Sedated No (0 pts) Impaired Gait No (0 pts) Mobility Assist Device Used No (0 pt) Altered Elimination No (0 pt) Score/Fall Risk Level 0 - 2 = Low Risk Oriented to surroundings, Maintained a safe environment, Assessed \T\ reinforced patient's understanding of fall precautions, Hourly rounding (assess needs \T\ fall precautionary measures) done. Abuse screen: Denies threats or abuse. Nutritional screening: No deficits noted. Tuberculosis screening: No symptoms or risk factors identified. Assessment: 19:18 GI: Bowel sounds present X 4 quads. cp4 21:15 Reassessment: Assumed care of patient at this time. pt reporting that she continues to cm10 have abdominal pain and that the medicine that was given earlier did not help her pain. Patient updated on plan of care. Patient placed back on monitor and IV fluids were re-started. Provider made aware that patient was needing more pain medicine. Reassessment: Patient appears in no apparent distress at this time. No changes from previously documented assessment. Patient and/or family updated on plan of care and expected duration. Pain level reassessed. Patient is alert, oriented x 3, equal unlabored respirations, skin warm/dry/pink. General: Appears in no apparent distress. comfortable, Behavior is calm, cooperative. Neuro: No deficits noted. Level of Consciousness is awake, alert, obeys commands, Oriented to person, place, time, situation. Respiratory: No deficits noted. Airway is patent Respiratory effort is even, unlabored, Respiratory pattern is regular, symmetrical. GI: Abdomen is flat, non-distended, Reports lower abdominal pain, upper abdominal pain, constipation. Musculoskeletal: No deficits noted. Range of motion: intact in all extremities. Vital Signs: 19:15 BP 141 / 87; Pulse 103; Resp 18; Temp 98; Pulse Ox 100% ; Weight 45.36 kg; Height 5 ft. cp4 0 in. ; Pain 10/10; 20:12 BP 126 / 71; Pulse 97; Resp 18; Temp 98; cp4 21:00 BP 159 / 92; Pulse 94; Resp 18; Pulse Ox 98% ; cp4 21:50 BP 126 / 88; Pulse 55; Resp 18; Pulse Ox 99% on R/A; cm10 19:15 Body Mass Index 19.53 (45.36 kg, 152.4 cm) cp4 19:15 Pain Scale: Adult cp4 ED Course: 18:33 Patient arrived in ED. ts1 18:38 Aydin Núñez PA is PHCP. cp 18:38 Edwin Blunt DO is Attending Physician. cp 19:05 Mckayla Fontaine is Primary Nurse. cp4 19:17 Triage completed. cp4 19:17 Arm band placed on right wrist. Patient placed in an exam room, on a stretcher. cp4 19:18 Bed in low position. Call light in reach. Side rails up X2. cp4 19:34 Inserted saline lock: 22 gauge in right forearm, using aseptic technique. rv1 19:35 Initial lab(s) drawn, by me, sent to lab. rv1 21:15 Primary Nurse role handed off by Mckayla Fontaine cm10 21:15 Arlene Stapleton, FLETCHER is Primary Nurse. cm10 21:15 Patient requests pain medication. cm10 21:44 Awaiting disposition. cm10 21:52 Nurse Practitioner and/or Physician Sport Psychologist to see patient. cm10 21:59 Morgan Houston MD is Referral Physician. cp 22:15 No provider procedures requiring assistance completed. IV discontinued, intact, cm10 bleeding controlled, No redness/swelling at site. Pressure dressing applied. 22:16 Provided Education on: Follow-up instructions. cm10 Administered Medications: 19:53 Drug: fentaNYL (PF) IVP 25 mcg IVP once Route: IVP; Site: right forearm; cp4 21:15 Follow up: Response: No adverse reaction; Pain is unchanged, physician notified cm10 19:53 Drug: NS 0.9% IV 1000 ml IV at 999 ml/hr Per protocol; 1000 mL bolus Route: IV; Rate: cp4 999 ml/hr; Site: right forearm; 22:14 Follow up: Response: No adverse reaction; IV Status: Completed infusion; IV Intake: cm10 300ml 20:37 Drug: Potassium PO Effervescent Tablet 50 mEq PO once; dissolve in 4 ounces of water or cp4 juice Route: PO; 21:15 Follow up: Response: No adverse reaction cm10 20:37 Drug: Potassium PO Effervescent Tablet 25 mEq PO once; dissolve in 4 ounces of water or cp4 juice Route: PO; 21:15 Follow up: Response: No adverse reaction cm10 20:37 Drug: Dexamethasone IVP 10 mg IVP once; (not to exceed 40 mg) Route: IVP; Site: right cp4 forearm; 21:15 Follow up: Response: No adverse reaction cm10 21:24 Drug: HYDROmorphone IVP 1 mg IVP once Route: IVP; Site: right forearm; cm10 22:14 Follow up: Response: No adverse reaction cm10 21:25 Drug: Trimethoprim-Sulfamethoxazole PO (160 mg-800 mg (DS) 1 tablet PO once Route: PO; cm10 22:14 Follow up: Response: No adverse reaction cm10 Medication: 19:18 VIS not applicable for this client. cp4 Intake: 22:14 IV: 300ml; Total: 300ml. cm10 Outcome: 22:02 Discharge ordered by MD. cp 22:15 Discharged to home ambulatory, with significant other, cm10 22:15 Condition: good 22:15 Discharge instructions given to patient, Instructed on discharge instructions, follow up and referral plans. medication usage, Demonstrated understanding of instructions, follow-up care, medications, Prescriptions given X 3, 22:16 Patient left the ED. cm10 Signatures: Aydin Núñez PA PA cp Villegas, Rebecca rv1 Karin Gutierrez PAS PAS ts1 Arlene Stapleton RN RN cm10 Mckayla Fontaine cp4
--- NOTE | 2024-01-31 22:03 | EDPHYS ---
Physician Documentation [facility] Name: Betsy Waldron Age: 53 yrs Sex: Female : 1970 Arrival Date: 01/31/2024 Time: 18:29 Bed 14 Private MD: ED Physician Edwin Blunt HPI: 01/30 19:00 This 53 yrs old Female presents to ER via Ambulatory with complaints of Abdominal Pain. cp 19:00 The patient presents with abdominal pain. Onset: The symptoms/episode began/occurred cp chronic, worse today. Associated signs and symptoms: Pertinent positives: anorexia, constipation, Pertinent negatives: blood in stools, chest pain, diarrhea, fever, vomiting. Patient reports recent colonoscopy was rescheduled by DR Barbosa due to bowel prep not being dome sufficiently. Contacted DR Barbosa's clinic about abdominal pain and CT abdomen was ordered and done today by DR Houston. Patient has not heard results. Presents to ED because of abdominal pain. 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 - Infectious Disease History:: Denies. CDIFF, C. Auris, ESBL, MRSA (w/in 1 year), VRE (w/in 1 year), TB, . - Social history:: Smoking status: Patient denies any tobacco usage or history of. ROS: 19:05 Constitutional: Negative for body aches, chills, fever, poor PO intake, cp 19:05 Eyes: Negative for injury, pain, redness, and discharge, cp 19:05 ENT: Negative for drainage from ear(s), ear pain, sore throat, difficulty swallowing, difficulty handling secretions, 19:05 Cardiovascular: Negative for chest pain, edema, palpitations, 19:05 Respiratory: Negative for cough, shortness of breath, wheezing, 19:05 Abdomen/GI: Positive for abdominal pain, constipation, Negative for vomiting, diarrhea, black/tarry stool, rectal bleeding, 19:05 Neuro: Negative for altered mental status, dizziness, headache, syncope, weakness, 19:05 All other systems are negative, Exam: 19:15 Constitutional: The patient appears in no acute distress, alert, awake, cp non-diaphoretic, non-toxic, well developed, well nourished, uncomfortable, 19:15 Head/Face: Normocephalic, atraumatic. cp 19:15 Eyes: Periorbital structures: appear normal, Conjunctiva: normal, no exudate, no injection, Sclera: no appreciated abnormality, Lids and lashes: appear normal, bilaterally, 19:15 ENT: External ear(s): are unremarkable, Nose: is normal, Mouth: Lips: moist, Oral mucosa: pink and intact, moist, Posterior pharynx: Airway: no evidence of obstruction, patent, 19:15 Chest/axilla: Inspection: normal, 19:15 Cardiovascular: Rate: tachycardic, Rhythm: regular, Edema: is not appreciated, JVD: is not appreciated, 19:15 Respiratory: the patient does not display signs of respiratory distress, Respirations: normal, no use of accessory muscles, no retractions, labored breathing, is not present, Breath sounds: are clear throughout, no decreased breath sounds, no stridor, no wheezing, 19:15 Abdomen/GI: Inspection: abdomen appears normal, Bowel sounds: active, all quadrants, Palpation: soft, in all quadrants, severe abdominal tenderness, in all quadrants, rebound tenderness, is not appreciated, involuntary guarding, is not appreciated, 19:15 Back: CVA tenderness, is absent, 19:15 Neuro: Orientation: to person, place \T\ time. Mentation: is normal, Motor: moves all fours, strength is normal, 19:15 Special observations: complaints out of proportion to exam, Vital Signs: 19:15 BP 141 / 87; Pulse 103; Resp 18; Temp 98; Pulse Ox 100% ; Weight 45.36 kg; Height 5 ft. cp4 0 in. ; Pain 10/10; 20:12 BP 126 / 71; Pulse 97; Resp 18; Temp 98; cp4 21:00 BP 159 / 92; Pulse 94; Resp 18; Pulse Ox 98% ; cp4 21:50 BP 126 / 88; Pulse 55; Resp 18; Pulse Ox 99% on R/A; cm10 19:15 Body Mass Index 19.53 (45.36 kg, 152.4 cm) cp4 19:15 Pain Scale: Adult cp4 MDM: 18:56 Patient medically screened. cp 20:00 Differential diagnosis: diverticulitis, non-specific abd pain, Pyelonephritis, cp Ureterolithiasis, urinary tract infection, chronic pain, drug seeking behavior. 22:01 Data reviewed: vital signs, nurses notes, lab test result(s), radiologic studies, CT cp abdomen/pelvis done today by DR Peterson that showed concern for colitis. Review of labs show wbc wnl. Patient appears non-toxic, VSS. Will discharge to home with RX for oral antibiotics. 01/30 18:54 Order name: CBC with Diff; Complete Time: 19:56 cp 01/30 21:03 Interpretation: Normal except: RBC 3.78; HGB 8.9; HCT 27.9; MCV 73.9; MCH 23.5; MCHC cp 31.9; RDW 18.3. 01/30 18:54 Order name: CMP; Complete Time: 20:05 cp 01/30 20:05 Interpretation: Normal except: K 2.8; BUN 6; CRE 1.13; GFR 59; AST 47; ALT 70; GLOB cp 3.8; A/G 1.0. 01/30 18:54 Order name: Lipase; Complete Time: 20:05 cp 01/30 18:54 Order name: Urinalysis w/ reflexes; Complete Time: 20:05 cp 01/30 18:54 Order name: IV Saline Lock; Complete Time: 19:41 cp 01/30 18:54 Order name: Labs collected and sent; Complete Time: 19:41 cp Administered Medications: 19:53 Drug: fentaNYL (PF) IVP 25 mcg IVP once Route: IVP; Site: right forearm; cp4 21:15 Follow up: Response: No adverse reaction; Pain is unchanged, physician notified cm10 19:53 Drug: NS 0.9% IV 1000 ml IV at 999 ml/hr Per protocol; 1000 mL bolus Route: IV; Rate: cp4 999 ml/hr; Site: right forearm; 22:14 Follow up: Response: No adverse reaction; IV Status: Completed infusion; IV Intake: cm10 300ml 20:37 Drug: Potassium PO Effervescent Tablet 50 mEq PO once; dissolve in 4 ounces of water or cp4 juice Route: PO; 21:15 Follow up: Response: No adverse reaction cm10 20:37 Drug: Potassium PO Effervescent Tablet 25 mEq PO once; dissolve in 4 ounces of water or cp4 juice Route: PO; 21:15 Follow up: Response: No adverse reaction cm10 20:37 Drug: Dexamethasone IVP 10 mg IVP once; (not to exceed 40 mg) Route: IVP; Site: right cp4 forearm; 21:15 Follow up: Response: No adverse reaction cm10 21:24 Drug: HYDROmorphone IVP 1 mg IVP once Route: IVP; Site: right forearm; cm10 22:14 Follow up: Response: No adverse reaction cm10 21:25 Drug: Trimethoprim-Sulfamethoxazole PO (160 mg-800 mg (DS) 1 tablet PO once Route: PO; cm10 22:14 Follow up: Response: No adverse reaction cm10 Disposition Summary: 01/31/24 22:02 Discharge Ordered Notes: Location: Home cp Problem: new cp Symptoms: have improved cp Condition: Stable cp Diagnosis - Indeterminate colitis cp - Proctitis cp Followup: cp - With: Morgan Houston MD - When: 1 - 2 days - Reason: Recheck today's complaints Discharge Instructions: - Discharge Summary Sheet cp - Proctitis cp - Colitis cp Forms: - Medication Reconciliation Form cp - Antibiotic Education cp - Prescription Opioid Use cp - Patient Portal Instructions cp - Leadership Thank You Letter cp Prescriptions: - Zofran 4 mg Oral Tablet - take 1 tablet ORAL route every 12 hours As needed; 20 tablet; Refills: 0, cp Product Selection Permitted - Bactrim DS 800-160 mg Oral Tablet - take 1 tablet ORAL route every 12 hours for 10 days; 20 tablet; Refills: 0, cp Product Selection Permitted - dicyclomine 20 mg Oral tablet - take 1 tablet ORAL route 4 times per day; 30 tablet; Refills: 0, Product cp Selection Permitted Addendum: 02/04/2024 18:15 I was immediately available on-site in the Emergency Department for consultation in the m s3 care of the patient. Signatures: Dispatcher [employer] EDMS Aydin Núñez PA PA cp Sims, Marcus, DO DO ms3 Arlene Stapleton RN RN cm10 Mckayla Fontaine cp4 Corrections: (The following items were deleted from the chart) 01/30 18:55 18:55 CBC+H.LAB.BRZ ordered. EDMS EDMS 18:55 18:55 COMPREHENSIVE METABOLIC PANEL+C.LAB.BRZ ordered. EDMS EDMS 18:55 18:55 LIPASE+C.LAB.BRZ ordered. EDMS EDMS 18:55 18:55 Urinalysis+U.LAB.BRZ ordered. EDMS EDMS
[2024-01-31 22:44] VITALS: BP 126/88; TEMP 98; O2SAT 99
== END 2024-01-31 22:16 | disposition home or self-care (01) ==
LOC: ER 18:29
DX: K52.3 Indeterminate colitis (principal); K62.89 Other specified diseases of anus and rectum; Z87.442 Personal history of urinary calculi; Z98.82 Breast implant status; Z88.1 Allergy status to other antibiotic agents; Z88.5 Allergy status to narcotic agent; Z88.8 Allergy status to other drugs, medicaments and biological substances
CPT/HCPCS: 96361; 85025; 36415; 81003; 83690; 80053; 96375; 96374; 99284; J3010; J1100; J1170; J7030

== ENCOUNTER 2024-02-18 11:00 | Emergency (ER) | payer BC ==
--- NOTE | 2024-02-18 12:08 | RAD REPORT ---
EXAM DESCRIPTION: RAD - Hand Left 3 View - 02/18/2024 12:01 pm CLINICAL HISTORY: fall;Pain COMPARISON: Forearm Left dated 02/18/2024 FINDINGS/IMPRESSION: No acute fracture. No malalignment. Mild degenerative changes are present at th e base of the thumb.
--- NOTE | 2024-02-18 12:09 | RAD REPORT ---
EXAM DESCRIPTION: RAD - Forearm Left - 02/18/2024 12:00 pm CLINICAL HISTORY: PAIN COMPARISON: Forearm Left dated 05/13/2013 FINDINGS/IMPRESSION: No acute fracture. No malalignment. No significant focal degenerative changes.
[2024-02-18] MEDS ORDERED: IBUPROFEN 200 MG TAB PO ONE (12:25)
[2024-02-18] MEDS ORDERED: ACETAMINOPHEN 325 MG TABLET ONE (12:25)
--- NOTE | 2024-02-18 13:46 | ER ---
Nurse's Notes [facility] Name: Betsy Waldron Age: 53 yrs Sex: Female : 1970 Arrival Date: 02/18/2024 Time: 11:00 Bed 14 Private MD: Diagnosis: Pain in left wrist;Other sprain of left thumb Presentation: 02/17 11:08 Chief complaint: Patient states: L wrist/thumb area pain since her fall 2 days ago. ll1 Coronavirus screen: Client denies travel out of the [place] in the last 14 days. At this time, the client does not indicate any symptoms associated with coronavirus-19. Ebola Screen: Patient denies travel to an Ebola-affected area in the 21 days before illness onset. Initial Sepsis Screen: Does the patient meet any 2 criteria? No. Patient's initial sepsis screen is negative. Does the patient have a suspected source of infection? No. Patient's initial sepsis screen is negative. Risk Assessment: Do you want to hurt yourself or someone else? Patient reports no desire to harm self or others. Onset of symptoms was February 16, 2024. 11:08 Method Of Arrival: Ambulatory ll1 11:08 Acuity: MORA 4 ll1 Triage Assessment: 13:54 General: Appears uncomfortable, Behavior is calm, cooperative, appropriate for age. 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 - Infectious Disease History:: Denies. - Social history:: Smoking status: Patient denies any tobacco usage or history of. Screenin:27 [facility] ED Fall Risk Assessment (Adult) History of falling in the last 3 months, cp4 including since admission Yes- single mechanical fall (1 pt) Confusion or Disorientation No (0 pts) Intoxicated or Sedated No (0 pts) Impaired Gait No (0 pts) Mobility Assist Device Used No (0 pt) Altered Elimination No (0 pt) Score/Fall Risk Level 0 - 2 = Low Risk Oriented to surroundings, Maintained a safe environment, Assessed \T\ reinforced patient's understanding of fall precautions, Hourly rounding (assess needs \T\ fall precautionary measures) done. Abuse screen: Denies threats or abuse. Nutritional screening: No deficits noted. Tuberculosis screening: No symptoms or risk factors identified. Assessment: 11:27 General: Appears uncomfortable, Behavior is calm, cooperative, appropriate for age. cp4 Pain: Complains of pain in left wrist. Musculoskeletal: Reports pain in left wrist. Vital Signs: 11:08 BP 141 / 91; Pulse 99; Resp 16; Pulse Ox 100% ; Weight 44 kg; Height 5 ft. 8 in. ; Pain ll1 7/10; 13:52 BP 135 / 87; Pulse 94; Resp 18; Pulse Ox 100% ; cp4 11:08 Body Mass Index 14.75 (44.00 kg, 172.72 cm) ll1 11:08 Pain Scale: Adult ll1 ED Course: 11:01 Patient arrived in ED. mr 11:03 Aydin Núñez PA is PHCP. cp 11:03 Aydin Lopez MD is Attending Physician. cp 11:08 Arm band placed on. ll1 11:09 Triage completed. ll1 11:20 Mckayla Fontaine is Primary Nurse. cp4 12:02 XRAY Forearm LEFT In Process Unspecified. EDMS 12:02 XRAY Hand LEFT 3 View In Process Unspecified. EDMS 13:40 Orthoglass splint: Thumb spica splint applied on left forearm. em1 13:53 Bed in low position. Call light in reach. Side rails up X2. Provided Education on: cp4 wrist pain. 13:53 No provider procedures requiring assistance completed. Patient did not have IV access cp4 during this emergency room visit. Administered Medications: 12:28 Drug: Ibuprofen PO 600 mg PO once Route: PO; cp4 13:52 Follow up: Response: No adverse reaction cp4 12:28 Drug: Acetaminophen PO 650 mg PO once Route: PO; cp4 13:52 Follow up: Response: No adverse reaction cp4 Medication: 11:27 VIS not applicable for this client. cp4 Outcome: 13:46 Discharge ordered by MD. cp 13:53 Discharged to home ambulatory, cp4 13:53 Condition: stable 13:53 Discharge instructions given to patient, Instructed on discharge instructions, follow up and referral plans. medication usage, Demonstrated understanding of instructions, follow-up care, medications, Prescriptions given X 1, 13:55 Patient left the ED. cp4 Signatures: Dispatcher [employer] EDMS Shilpa Remy, Adrian Campbell Esequiel Stapleton em1 Aydin Núñez PA PA cp Lewis, Lynsay, RN RN ll1 Mckayla Fontaine cp4
--- NOTE | 2024-02-18 13:47 | EDPHYS ---
Physician Documentation [facility] Name: Betsy Waldron Age: 53 yrs Sex: Female : 1970 Arrival Date: 02/18/2024 Time: 11:00 Bed 14 Private MD: ED Physician Aydin Lopez HPI: 02/17 12:00 This 53 yrs old Female presents to ER via Ambulatory with complaints of Hand Injury. cp 12:00 The patient or guardian reports injury, pain. The complaints affect the left wrist and cp left thumb. Context: resulted from a fall. 12:00 Onset: The symptoms/episode began/occurred 2 day(s) ago. cp 12:00 Associated signs and symptoms: Pertinent negatives: cyanosis distally, decreased cp sensation distally. Severity of symptoms: in the emergency department the symptoms are unchanged, despite home interventions. 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 - Infectious Disease History:: Denies. - Social history:: Smoking status: Patient denies any tobacco usage or history of. ROS: 12:05 MS/extremity: Positive for pain, of the left wrist and left thumb, Negative for cp deformity, paresthesias, 12:05 Neck: Negative for pain with movement, pain at rest, cp 12:05 Back: Negative for pain at rest, pain with movement, 12:05 Neuro: Negative for numbness, tingling, weakness, 12:05 All other systems are negative, Exam: 12:10 Constitutional: The patient appears in no acute distress, alert, awake, non-toxic, well cp developed, well nourished, uncomfortable, 12:10 Musculoskeletal/extremity: Extremities: grossly normal except: noted in the left hand cp and left wrist: pain, tenderness noted dorsal side of thumb extending proximally with snuff box tenderness, There is no evidence of decreased ROM, deformity, ROM: limited passive range of motion due to pain, in the left wrist and left thumb, Perfusion: the extremity is normally perfused throughout, the left hand Sensation intact. 12:10 Neuro: Orientation: to person, place \T\ time. Mentation: is normal, Vital Signs: 11:08 BP 141 / 91; Pulse 99; Resp 16; Pulse Ox 100% ; Weight 44 kg; Height 5 ft. 8 in. ; Pain ll1 7/10; 13:52 BP 135 / 87; Pulse 94; Resp 18; Pulse Ox 100% ; cp4 11:08 Body Mass Index 14.75 (44.00 kg, 172.72 cm) ll1 11:08 Pain Scale: Adult ll1 Procedures: 14:00 Splinting: Splint applied to left thumb and left wrist using Orthoglass splint, thumb cp spica type. applied by tech. Examined by me, post splint application: neurovascular intact, Patient tolerated well. MDM: 11:05 Patient medically screened. cp 13:45 Data reviewed: vital signs, nurses notes, radiologic studies, plain films, and as a cp result, I will discharge patient. 13:45 Differential diagnosis: dislocation, sprain, fracture. I considered the following cp discharge prescriptions or medication management in the emergency department Medications were administered in the Emergency Department. See MAR. Counseling: I had a detailed discussion with the patient and/or guardian regarding the historical points, exam findings, and any diagnostic results supporting the discharge/admit diagnosis, radiology results, the need for outpatient follow up, a hand specialist, a orthopedic surgeon, to return to the emergency department if symptoms worsen or persist or if there are any questions or concerns that arise at home. Response to treatment: the patient's symptoms have markedly improved after treatment, and as a result, I will discharge patient. 02/17 11:08 Order name: XRAY Forearm LEFT; Complete Time: 12:18 cp 02/17 12:18 Interpretation: Report reviewed. cp 02/17 11:08 Order name: XRAY Hand LEFT 3 View; Complete Time: 12:18 cp 02/17 12:18 Interpretation: Report reviewed. cp Administered Medications: 12:28 Drug: Ibuprofen PO 600 mg PO once Route: PO; cp4 13:52 Follow up: Response: No adverse reaction cp4 12:28 Drug: Acetaminophen PO 650 mg PO once Route: PO; cp4 13:52 Follow up: Response: No adverse reaction cp4 Disposition Summary: 02/18/24 13:46 Discharge Ordered Notes: Location: Home cp Problem: new cp Symptoms: have improved cp Condition: Stable cp Diagnosis - Pain in left wrist cp - Other sprain of left thumb cp Followup: cp - With: Private Physician - When: Silver Patel with Hand\T\ Wrist [facility], #[phone] - Reason: Recheck today's complaints Discharge Instructions: - Discharge Summary Sheet cp - RICE Therapy for Routine Care of Injuries cp - Thumb Sprain cp - Wrist Pain, Adult cp Forms: - Medication Reconciliation Form cp - Antibiotic Education cp - Prescription Opioid Use cp - Patient Portal Instructions cp - Leadership Thank You Letter cp Prescriptions: - Ibuprofen 800 mg Oral tablet - take 0.5 tablet ORAL route every 8 hours As needed take with food; 30 tablet; cp Refills: 0, Product Selection Permitted Signatures: Dispatcher [employer] EDMS Aydin Núñez PA PA cp Nestor Lees RN RN ll1 Mckayla Fontaine cp4 Corrections: (The following items were deleted from the chart) 11:08 11:08 Hand Left 3 View+RAD.RAD.BRZ ordered. EDMS EDMS
[2024-02-18 14:16] VITALS: BP 135/87; O2SAT 100
== END 2024-02-18 13:55 | disposition home or self-care (01) ==
LOC: ER 11:00
DX: S63.682A Other sprain of left thumb, initial encounter (principal)
CPT/HCPCS: 99283

== ENCOUNTER 2024-09-03 13:30 | Emergency (ER) | payer BC ==
[2024-09-03 14:05] LABS: Absolute Eosinophils 0.1 K/uL (0-0.5); Absolute Lymphocytes (CBC) 0.9 K/uL (0.7-4.9); Absolute Monocytes 0.3 K/uL (0.1-1.3); Absolute Neutrophil 3.3 K/uL (1.8-8.0); Basophils % 0.5 % (0-1.3); Eosinophils % 1.7 % (0-4.4); Hematocrit 21.3 % (36.0-45.0); Hemoglobin 6.3 g/dL (12.0-15.0); Lymphocytes % 19.2 % (15.3-44.8); MCH 24.3 pg (27.0-35.0); MCHC 29.6 g/dL (32.0-36.0); MCV 82.1 fL (80-100); MPV 7.5 fL (7.6-11.3); Monocytes % 6.5 % (3.3-12.3); Neutrophils % 72.1 % (41.7-73.7); Platelets 355 thou/uL (152-406); Red Cell Distribution Width 19.8 % (12.1-15.2)
[2024-09-03] MEDS ORDERED: HALOPERIDOL LACT 5 MG/ML INJ ONE (14:08)
[2024-09-03] MEDS ORDERED: DIPHENHYDRAMINE 50 MG/ML VIAL ONE (14:09)
[2024-09-03] MEDS ORDERED: NA CHLORIDE 0.9% 50 ML ONE ×2 (14:09→15:20)
[2024-09-03 14:21] LABS: AST/SGOT 19 U/L (15-37); Albumin 3.5 g/dL (3.4-5.0); Albumin/Globulin Ratio 1.1 (1.1-1.8); Alkaline Phosphatase 61 U/L (45-117); Anion Gap 7.9 mEq/L (5.0-15.0); BUN Blood Urea Nitrogen 38 mg/dL (7-18); Bicarbonate 22 mEq/L (21-32); Bilirubin Total 0.6 mg/dL (0.2-1.0); Globulin 3.1 g/dL (2.3-3.5); Glomerular Filtration Rate 37 ml/min (=/>90); Glucose Level 102 mg/dL (74-106); Lipase 72 U/L (13-75); Potassium 3.9 mEq/L (3.5-5.1); Protein, Total 6.6 g/dL (6.4-8.2); Sodium Level 139 mEq/L (136-145)
[2024-09-03 14:25] LABS: ALT/SGPT < 14 U/L (13-56)
[2024-09-03 14:31] LABS: Specific Gravity 1.016 (1.005-1.030); Sqamous Epithelial <5 /HPF (None Seen); Urine Bacteria <20 /HPF (<20); Urine Bilirubin 1+ (Negative); Urine Blood Negative (Negative); Urine Clarity Extremely Turbid (Clear); Urine Color Dark-Brown (Yellow); Urine Crystals Unidentified Few /HPF (None Seen); Urine Culture Reflex Order NOT NEEDED; Urine Glucose NEGATIVE (Negative); Urine Ketones NEGATIVE (Negative); Urine Micro Reflex YN NO BILL MICROSCOPIC; Urine Mucus Slight /HPF (None Seen); Urine Nitrite 1+ (Negative); Urine Protein TRACE (Negative); Urine RBC <5 /HPF (None Seen); Urine Urobilinogen 1+ (Normal); Urine WBC <5 /HPF (<5); Urine WBC Clump Rare /HPF (None Seen); Urine Yeast (Budding) Trace /HPF (None Seen); Urine pH 5.5 (5.0-7.0)
--- NOTE | 2024-09-03 15:00 | RAD REPORT ---
EXAMINATION: CT ABDOMEN AND PELVIS WITH CONTRAST CLINICAL INDICATION: ABD PAIN TECHNIQUE: CT abdomen and pelvis was performed, after the administration of IV contrast, as per [facility]. Axial, sagittal and coronal reconstructions were obtained. One or more of the following dose reduction techniques were used: Automated exposure control, adjustment of the mA and k V according to patient size, and iterative reconstruction. Unless otherwise specified, incidental findings do not require dedicated imaging follow-up. COMPARISON: 01/31/2024 FINDINGS: LOWER CHEST: The visualized lung bases are clear. Postsurgical changes about the stomach. Small hiata l hernia. LIVER: Normal in size and contour. No focal lesion. Cholecystectomy clips. SPLEEN: Normal size. No focal lesion. PANCREAS: No mass, ductal dilation, or sarahy-pancreatic fluid. ADRENALS: Normal; no mass. KIDNEYS: Normal size and contour. No hydronephrosis. GASTROINTESTINAL TRACT: No evidence of free air, significant intra-abdominal free fluid, bowel obstru ction or abscess. Severe constipation. APPENDIX: Appendix not visualized, but no inflammatory changes in region of appendix. LYMPH NODES: No lymphadenopathy. MUSCULOSKELETAL: Posterior fusion L5-S1. ADDITIONAL FINDINGS: None. IMPRESSION: Severe constipation.
[2024-09-03] MEDS ORDERED: CEFTRIAXONE 1000 MG/VIAL ONE (15:20)
[2024-09-03] MEDS ORDERED: NA CHLORIDE 0.9% 100 ML ONE (15:21)
[2024-09-03] MEDS ORDERED: PANTOPRAZOLE 40 MG INJ ONE (15:58)
[2024-09-03] MEDS ORDERED: NA CHLORIDE 0.9% 250 ML ONE (15:59)
--- NOTE | 2024-09-03 16:02 | ER ---
Nurse's Notes [facility] Name: Betsy Waldron Age: 54 yrs Sex: Female : 1970 Arrival Date: 09/03/2024 Time: 13:30 Bed 3 Private MD: Diagnosis: Anemia, unspecified;Concern for Lower GI Bleed Presentation: 09/03 13:40 Chief complaint: EMS states: they were called to the patients home for abdominal pain ap3 and blood in stool. patient crying during triage. patient rates her pain as a 10/10 on the pain scale. Coronavirus screen: At this time, the client does not indicate any symptoms associated with coronavirus-19. Ebola Screen: No symptoms or risks identified at this time. 13:40 Method Of Arrival: EMS: [facility] ap3 13:51 Initial Sepsis Screen: Does the patient meet any 2 criteria? RR > 20 per min. No. ap3 Patient's initial sepsis screen is negative. Does the patient have a suspected source of infection? No. Patient's initial sepsis screen is negative. 13:52 Risk Assessment: Do you want to hurt yourself or someone else? Patient reports no ap3 desire to harm self or others. Onset of symptoms is unknown. 13:52 Acuity: MORA 3 ap3 13:54 Care prior to arrival: Medication(s) given: Normal saline infusion, 1000 mL, fentanyl ap3 50mcg IV IV initiated. 22 GA, in the right forearm. Triage Assessment: 13:50 General: Appears uncomfortable, Behavior is calm, cooperative, crying. Pain: Complains ap3 of pain in abdomen. Neuro: Level of Consciousness is awake, alert, obeys commands, Oriented to person, place, time, situation. Cardiovascular: Patient's skin is warm and dry. Pulses are palpable in right dorsalis pedis artery and left dorsalis pedis artery. Respiratory: Airway is patent Respiratory effort is even, unlabored, Respiratory pattern is regular, symmetrical. GI: Reports lower abdominal pain, upper abdominal pain, having to "dig my own poop out, and it is bloody". : Reports having to cath herself for urine. 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 Screenin:51 Abuse screen: Denies threats or abuse. Nutritional screening: Intervention for positive ap3 screen:. Tuberculosis screening: No symptoms or risk factors identified. 13:52 [facility] ED Fall Risk Assessment (Adult) History of falling in the last 3 months, ap3 including since admission Yes- fall prone (multiple falls) (3 pts) Confusion or Disorientation No (0 pts) Intoxicated or Sedated No (0 pts) Impaired Gait Yes (1 pt) Mobility Assist Device Used Yes (1 pt) Altered Elimination Yes (1 pt) Score/Fall Risk Level 3 or more points = High Risk Oriented to surroundings, Maintained a safe environment, Educated pt \\T\\ family on fall prevention, incl call for assistance when getting out of bed, Assessed \\T\\ reinforced patient's understanding of fall precautions, Provided non-skid footwear, Hourly rounding (assess needs \\T\\ fall precautionary measures) done, Used ambulatory aids as needed (educated on \\T\\ assisted with), Used gait belt as appropriate Implemented a Fall Risk Plan of Care, Remained w/in arm's length of patient and in sight while toileting, Offered frequent toileting (1:1 observation), Remained with patient while ambulating. Assessment: 15:02 Reassessment: Patient and/or family updated on plan of care and expected duration. Pain ap3 level reassessed. Patient is alert, oriented x 3, equal unlabored respirations, skin warm/dry/pink. 16:00 Reassessment: Patient appears in no apparent distress at this time. Patient and/or jb4 family updated on plan of care and expected duration. Pain level reassessed. Patient is alert, oriented x 3, equal unlabored respirations, skin warm/dry/pink. 17:00 Reassessment: Patient appears in no apparent distress at this time. Patient and/or jb4 family updated on plan of care and expected duration. Pain level reassessed. Patient is alert, oriented x 3, equal unlabored respirations, skin warm/dry/pink. blood products started. 18:58 Reassessment: Patient appears in no apparent distress at this time. Patient and/or jb4 family updated on plan of care and expected duration. Pain level reassessed. Patient is alert, oriented x 3, equal unlabored respirations, skin warm/dry/pink. report given to [facility]. Pt noted to have 604ml of urine in the bladder and unable to urinate, provider notified, received verbal order to start a rawls. Vital Signs: 13:40 BP 126 / 84; Pulse 87; Resp 25; Temp 97.8; Weight 36.29 kg; ap3 13:49 Pulse Ox 95% on R/A; ap3 13:51 Resp 18; ap3 15:10 BP 100 / 61; Pulse 75; Resp 18; Pulse Ox 95% on R/A; ap3 16:23 BP 124 / 71; ec2 17:15 BP 110 / 72; Pulse 73; Resp 16; Temp 98.1; Pulse Ox 93% on R/A; jb4 ED Course: 13:33 Patient arrived in ED. ec2 13:33 Neto Szymanski MD is Attending Physician. ec2 13:40 Alejandra Bingham, FLETCHER is Primary Nurse. ap3 13:52 Triage completed. ap3 13:53 Arm band placed on right wrist. ap3 13:53 Patient has correct armband on for positive identification. Bed in low position. Call ap3 light in reach. Side rails up X2. Client placed on continuous cardiac and pulse oximetry monitoring. NIBP monitoring applied. child adolescent psychiatrist on. Pulse ox on. NIBP on. 13:56 CBC with Diff Sent. bc6 13:56 CMP Sent. bc6 13:56 Lipase Sent. bc6 13:56 Initial lab(s) drawn, by me, sent to lab. Maintain EMS IV. Dressing intact. Good blood bc6 return noted. Site clean \\T\\ dry. Gauge \\T\\ site: 22 \\T\\R wrist. 14:53 CT Abd/Pelvis - IV Contrast Only In Process Unspecified. EDMS 16:16 Inserted saline lock: 20 gauge in left forearm, using aseptic technique. Flushed with bc6 10 mL NS. 16:21 initiated transfer to [facility]. bd 17:15 Provided Education on: plan of care. jb4 17:15 No provider procedures requiring assistance completed. Patient transferred, IV remains jb4 in place. Administered Medications: 13:48 CANCELLED (Physician Discretion): haloperidol5 mg IVP once ec2 13:54 Drug: NS 0.9% IV 1000 ml IV at 1 bolus Per protocol; to be given as a bolus over 60 ap3 minutes Route: IV; Rate: 1 bolus; Site: right forearm; 15:02 Follow up: IV Status: Completed infusion; IV Intake: 1000ml ap3 14:16 Not Given (Patient Refused): [id number] mg IVP once ap3 14:17 Drug: Haloperidol IVP 2.5 mg IVP once Route: IVP; Site: right forearm; ap3 15:01 Follow up: Response: No adverse reaction; Anxiety unchanged ap3 15:25 Drug: Rocephin IV 1 grams IV at bolus once; Given slow IV push per pharmacy ap3 instructions Route: IV; Rate: bolus; Site: right forearm; 16:21 Drug: Pantoprazole IVP 80 mg IVP once Route: IVP; Site: right forearm; jb4 16:21 Drug: Pantoprazole IV 8 mg/hr IV at 25 ml/hr continuous; (Standard dilution is 80 mg in jb4 250 mL NS) Route: IV; Rate: 25 ml/hr; Site: right forearm; 16:30 Drug: fentaNYL (PF) IVP 25 mcg IVP once Route: IVP; Site: left forearm; jb4 18:17 Drug: Phenazopyridine PO 100 mg PO once Route: PO; jb4 Medication: 17:15 VIS not applicable for this client. jb4 Intake: 15:02 IV: 1000ml; Total: 1000ml. ap3 Outcome: 16:01 ER care complete, transfer ordered by . ec2 18:58 Transferred by ground EMS to [facility], Transfer form jb4 completed. X-rays sent w/ patient. 18:58 Condition: stable 18:58 Discharge instructions given to patient, Instructed on the need for transfer, Demonstrated understanding of instructions, 19:00 Patient left the ED. jb4 Signatures: Dispatcher [employer] EDMS Clair Guzman James, RN RN jb4 Alejandra Bingham RN RN ap3 Charity Paz 6 Neto Szymanski MD MD ec2 Corrections: (The following items were deleted from the chart) 17:22 17:15 BP 110 / 72; Pulse 73bpm; Resp 16bpm; Pulse Ox 93% RA; Temp 16F; jb4 jb4 19:00 18:58 Reassessment: Patient appears in no apparent distress at this time. Patient jb4 and/or family updated on plan of care and expected duration. Pain level reassessed. Patient is alert, oriented x 3, equal unlabored respirations, skin warm/dry/pink. report given to [facility] jb4
--- NOTE | 2024-09-03 16:02 | EDPHYS ---
Physician Documentation [facility] Name: Betsy Waldron Age: 54 yrs Sex: Female : 1970 Arrival Date: 09/03/2024 Time: 13:30 Bed 3 Private MD: ED Physician Neto Szymanski HPI: 09/03 14:05 This 54 yrs old Female presents to ER via EMS with complaints of Abdominal ec2 Pain. 14:06 Patient arrives today for evaluation of abdominal pain along with general weakness. ec2 Reports she been having some chronic abdominal pain, states that she was told that she has some type of process that required surgery however is unclear what exactly that is. Reports that she has been taking pain medications at home.. 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 ROS: 14:06 Constitutional: as per hpi ec2 Exam: 14:06 Constitutional: GEN: NAD Head: atraumatic Eyes: EOMI Ears: External ears are ec2 normal. CV: regular rate LUNGS: no respiratory distress ABD: non-distended, soft, generally tender, not guarding, not rigid SKIN: no evidence of rashes MSK: no evidence of trauma Vital Signs: 13:40 BP 126 / 84; Pulse 87; Resp 25; Temp 97.8; Weight 36.29 kg; ap3 13:49 Pulse Ox 95% on R/A; ap3 13:51 Resp 18; ap3 15:10 BP 100 / 61; Pulse 75; Resp 18; Pulse Ox 95% on R/A; ap3 16:23 BP 124 / 71; ec2 17:15 BP 110 / 72; Pulse 73; Resp 16; Temp 98.1; Pulse Ox 93% on R/A; jb4 MDM: 13:46 Medical Screening Exam initiated ec2 14:07 Data reviewed: vital signs, nurses notes. ED course: Patient arrives today for ec2 evaluation of abdominal pain. Examination is remarkable for a generally tender abdomen without guarding or rigidity. Will obtain lab work, CT imaging.. 16:00 ED course: CT imaging with constipation. CBC shows anemia, ordered for transfusion. ec2 Patient with rectal examination performed under nurse supervision, no bright red blood per rectum, no melena appreciated. Patient reports that she has been having some bright red blood per rectum.. 16:30 ED course: I discussed the case with hospitalist at [facility] who agrees except ec2 the patient for transfer.. 09/03 14:22 Order name: Type And Screen ec2 09/03 13:48 Order name: CBC with Diff; Complete Time: 14:22 ec2 09/03 13:48 Order name: CMP; Complete Time: 14:36 ec2 09/03 13:48 Order name: Lipase; Complete Time: 14:36 ec2 09/03 13:48 Order name: UAM; Complete Time: 14:36 ec2 09/03 14:30 Order name: Bb Add On bd 09/03 15:15 Order name: Packed RBC Leukored EDMS 09/03 15:53 Order name: ABO/RH no charge; Complete Time: 16:02 EDMS 09/03 13:48 Order name: CT Abd/Pelvis - IV Contrast Only; Complete Time: 15:03 ec2 09/03 13:48 Order name: IV Saline Lock; Complete Time: 13:55 ec2 09/03 13:48 Order name: Labs collected and sent; Complete Time: 13:56 ec2 09/03 13:48 Order name: Cath; Complete Time: 14:18 ec2 09/03 14:23 Order name: Consent for Blood Transfusion; Complete Time: 15:09 ec2 Administered Medications: 13:48 CANCELLED (Physician Discretion): haloperidol5 mg IVP once ec2 13:54 Drug: NS 0.9% IV 1000 ml IV at 1 bolus Per protocol; to be given as a bolus over 60 ap3 minutes Route: IV; Rate: 1 bolus; Site: right forearm; 15:02 Follow up: IV Status: Completed infusion; IV Intake: 1000ml ap3 14:16 Not Given (Patient Refused): [id number] mg IVP once ap3 14:17 Drug: Haloperidol IVP 2.5 mg IVP once Route: IVP; Site: right forearm; ap3 15:01 Follow up: Response: No adverse reaction; Anxiety unchanged ap3 15:25 Drug: Rocephin IV 1 grams IV at bolus once; Given slow IV push per pharmacy ap3 instructions Route: IV; Rate: bolus; Site: right forearm; 16:21 Drug: Pantoprazole IVP 80 mg IVP once Route: IVP; Site: right forearm; jb4 16:21 Drug: Pantoprazole IV 8 mg/hr IV at 25 ml/hr continuous; (Standard dilution is 80 mg in jb4 250 mL NS) Route: IV; Rate: 25 ml/hr; Site: right forearm; 16:30 Drug: fentaNYL (PF) IVP 25 mcg IVP once Route: IVP; Site: left forearm; jb4 18:17 Drug: Phenazopyridine PO 100 mg PO once Route: PO; jb4 Disposition Summary: 09/03/24 16:01 Transfer Ordered Notes: Transfer Location: Other Acute Care Facility ec2 Reason: Higher level of care ec2 Condition: Stable ec2 Problem: an ongoing problem ec2 Symptoms: are unchanged ec2 Accepting Physician: transferring doc(09/03/24 19:00) jb4 Diagnosis - Anemia, unspecified ec2 - Concern for Lower GI Bleed ec2 Forms: - Medication Reconciliation Form ec2 - SBAR form ec2 Critical care time excluding procedures: 16:00 Critical care time: Bedside Care: 30 minutes, Consultation: 5. minutes. Total time: 35 ec2 minutes Signatures: Dispatcher [employer] EDGlenn Mae RN RN jb4 Alejandra Bingham RN RN ap3 Neto Szymanski MD MD ec2 Corrections: (The following items were deleted from the chart) 13:48 13:48 Haloperidol IVP 5 mg IVP once ordered. ec2 ec2 13:48 13:48 CBC+H.LAB.BRZ ordered. EDMS EDMS 13:48 13:48 COMPREHENSIVE METABOLIC PANEL+C.LAB.BRZ ordered. EDMS EDMS 13:48 13:48 LIPASE+C.LAB.BRZ ordered. EDMS EDMS 13:48 13:48 Abdomen Pelvis W Con+CT.RAD.BRZ ordered. EDMS EDMS 15: 14:23 PACKED RBC LEUKORED+BB.LAB.BRZ ordered. EDMS EDMS 15: 14:26 ABO/RH typing ordered. EDMS EDMS 15: 14:26 Antibody Screen ordered. EDMS EDMS 19:00 16:01 transferring doc ec2 jb4
[2024-09-03] MEDS ORDERED: FENTANYL CITR 100 MCG/2 ML ONE (16:30)
[2024-09-03] MEDS ORDERED: PHENAZOPYRIDINE 100MG TAB PO ONE (18:15)
[2024-09-03 19:26] VITALS: BP 110/72; TEMP 98.1; O2SAT 93
== END 2024-09-03 19:00 ==
LOC: ER 13:30
PROC: 30233N1 Transfusion of Nonautologous Red Blood Cells into Peripheral Vein, Percutaneous Approach (ICD-10-PCS; principal; 2024-09-03)
DX: D64.9 Anemia, unspecified (principal)
CPT/HCPCS: 85025; 81001; 36415; 86900; 86850; 86901; 86920; 83690; 80053; 74177; 99285; 36430; Q9967; J1630; J1200; J2470; J3010; P9016; J7050; J0696

== ENCOUNTER 2024-12-19 15:49 | Emergency (ER) | payer BC ==
[2024-12-19] MEDS ORDERED: HYDROCODONE/APAP 5/325 MG TAB ONE (16:36)
--- NOTE | 2024-12-19 17:01 | RAD REPORT ---
EXAM: Foot Right 3 View HISTORY: trauma COMPARISON: None FINDINGS: Bones: No acute fracture identified. Alignment:No significant malalignment. Degenerative changes:None significant. Other: n/a IMPRESSION: No evidence of acute osseous abnormality involving the imaged foot.
--- NOTE | 2024-12-19 17:49 | RAD REPORT ---
EXAMINATION: Head Brain Wo Cont CLINICAL INDICATION: Female, 54 years old.TRAUMA TECHNIQUE: Axial CT images from the skull base to the vertex without intravenous contrast. Coronal an d sagittal reformatted images were created from the data set. One or more of the following dose reduction techniques were used: Automated exposure control, adjustment of the mA and/or kV according to patient size, and/or iterative reconstruction. Unless otherwise specified, incidental findings do not require dedicated imaging follow-up. [id number]. COMPARISON: 10/04/2017 FINDINGS: INTRACRANIAL: No acute intracranial hemorrhage. No hydrocephalus. No mass effect or midline shift. No significant white matter disease. VASCULATURE: No visualized abnormalities in the arteries or dural venous sinuses. SCALP/SKULL: No calvarial fracture identified. No acute soft tissue abnormality. SINUSES: The visualized paranasal sinuses are mostly clear. No significant mastoid fluid. IMPRESSION: No acute intracranial abnormality. No skull fracture
--- NOTE | 2024-12-19 17:52 | EDPHYS ---
Physician Documentation [facility] Name: Betsy Waldron Age: 54 yrs Sex: Female : 1970 Arrival Date: 12/19/2024 Time: 15:49 Bed 19 Private MD: ED Physician Jarod Dickerson HPI: 12/19 16:49 This 54 yrs old Female presents to ER via Ambulatory with complaints of Foot Injury - sp3 Right, Tongue injury, head injury. 16:49 54-year-old female history of chronic pain, bipolar disease presents with mechanical sp3 fall with injury to the right foot, head and tongue. Injury to the left parietal area with possible LOC where she states she was dazed. Small tongue laceration also noted. Right foot with ecchymoses patient states she is unable to put significant weight on it. No other injury reported. No medical prodrome as patient states she tripped over a dog toy and she fell.. 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 Flu vaccine is not up to date. - Infectious Disease History:: Denies. - Social history:: Smoking status: Reported history of juuling and/or vaping. ROS: 16:52 Constitutional: Negative for fever, chills, and weight loss, Eyes: Negative for injury, sp3 pain, redness, and discharge, Neck: Negative for injury, pain, and swelling, Cardiovascular: Negative for chest pain, palpitations, and edema, Respiratory: Negative for shortness of breath, cough, wheezing, and pleuritic chest pain, Abdomen/GI: Negative for abdominal pain, nausea, vomiting, diarrhea, and constipation, Back: Negative for injury and pain, Skin: Negative for injury, rash, and discoloration, Psych: Negative for depression, anxiety, suicide ideation, homicidal ideation, and hallucinations, Allergy/Immunology: Negative for hives, rash, and allergies, Endocrine: Negative for neck swelling, polydipsia, polyuria, polyphagia, and marked weight changes, 16:52 All other systems are negative, Exam: 16:53 Constitutional: This is a well developed, well nourished patient who is awake, alert, sp3 and in no acute distress. Eyes: Pupils equal round and reactive to light, extra-ocular motions intact. Lids and lashes normal. Conjunctiva and sclera are non-icteric and not injected. Cornea within normal limits. Periorbital areas with no swelling, redness, or edema. Neck: Trachea midline, no thyromegaly or masses palpated, and no cervical lymphadenopathy. Supple, full range of motion without nuchal rigidity, or vertebral point tenderness. No Meningismus. Chest/axilla: Normal chest wall appearance and motion. Nontender with no deformity. No lesions are appreciated. Cardiovascular: Regular rate and rhythm with a normal S1 and S2. No gallops, murmurs, or rubs. Normal PMI, no JVD. No pulse deficits. Respiratory: Lungs have equal breath sounds bilaterally, clear to auscultation and percussion. No rales, rhonchi or wheezes noted. No increased work of breathing, no retractions or nasal flaring. Abdomen/GI: Soft, non-tender, with normal bowel sounds. No distension or tympany. No guarding or rebound. No evidence of tenderness throughout. Back: No spinal tenderness. No costovertebral tenderness. Full range of motion. Skin: Warm, dry with normal turgor. Normal color with no rashes, no lesions, and no evidence of cellulitis. Neuro: Awake and alert, GCS 15, oriented to person, place, time, and situation. Cranial nerves II-XII grossly intact. Motor strength 5/5 in all extremities. Sensory grossly intact. Cerebellar exam normal. Normal gait. Psych: Awake, alert, with orientation to person, place and time. Behavior, mood, and affect are within normal limits. 16:53 Head/face: Small scalp hematoma noted in the left parietal region. 16:53 Eyes: 6 mm tongue laceration noted mid tongue with no active bleeding.. 16:53 Musculoskeletal/extremity: Right foot ecchymoses noted in the fourth toe and proximal foot over the anterior talus. Normal neurovascular exam. No open wounds.. Vital Signs: 15:57 BP 120 / 63; Pulse 80; Resp 17; Temp 99; Pulse Ox 98% on R/A; Weight 39.92 kg; Height 5 ap3 ft. 0 in. ; Pain 10/10; 15:57 Body Mass Index 17.19 (39.92 kg, 152.4 cm) ap3 15:57 Pain Scale: Adult ap3 MDM: 16:19 Medical Screening Exam initiated sp3 16:54 Data reviewed: vital signs, nurses notes, old medical records, radiologic studies. ED sp3 course: 54-year-old female with injuries from a mechanical fall. Scalp hematoma, closed head injury, right foot contusion with possible fracture, and tongue laceration noted. Will obtain CT scan of the head, right foot x-ray and administer pain medication. Nothing to do for the tongue laceration as no repair is indicated. Further disposition and interventions as radiology studies indicate.. 17:50 ED course: CT and x-ray both negative. Will discharge patient on tramadol. Raul wrap and sp3 crutches prior to discharge.. 12/19 16:20 Order name: CT Head Brain wo Cont; Complete Time: 17:50 sp3 12/19 16:20 Order name: Foot Right 3 View XRAY; Complete Time: 17:39 sp3 12/19 17:50 Order name: Raul Wrap; Complete Time: 18:12 sp3 12/19 17:50 Order name: Crutches; Complete Time: 18:12 sp3 Administered Medications: 16:38 Drug: HYDROcodone-acetaminophen PO 5 mg-325 mg 2 tabs PO once Route: PO; bp 18:03 Follow up: Response: No adverse reaction bp Disposition Summary: 12/19/24 17:51 Discharge Ordered Notes: Location: Home sp3 Condition: Stable sp3 Diagnosis - Closed head injury, mechanical fall, right foot contusion, scalp hematoma, tongue sp3 laceration Followup: sp3 - With: Private Physician - When: Upon discharge from the Emergency Department - Reason: If symptoms return, Continuance of care Discharge Instructions: - Discharge Summary Sheet sp3 - Foot Contusion sp3 - Crutch Use, Adult sp3 - Head Injury, Adult sp3 Forms: - Medication Reconciliation Form sp3 - Antibiotic Education sp3 - Prescription Opioid Use sp3 - Patient Portal Instructions sp3 - Leadership Thank You Letter sp3 Prescriptions: - Tramadol 50 mg Oral Tablet - take 1 tablet ORAL route every 8 hours as needed; 12 tablet; Refills: 0, sp3 Product Selection Permitted Signatures: Dispatcher [employer] Lewis Conroy, RN RN Alejandra Ayala RN RN ap3 Jarod Dickerson MD MD sp3 Corrections: (The following items were deleted from the chart) 16:02 16:00 Allergies: Amoxicillin; ap3 ap3 16: 16:00 Allergies: Azithromycin; ap3 ap3 16:02 16:00 Allergies: Trazodone; ap3 ap3 16:02 16:00 Allergies: Seroquel; ap3 ap3
--- NOTE | 2024-12-19 17:52 | ER ---
Nurse's Notes [facility] Name: Betsy Waldron Age: 54 yrs Sex: Female : 1970 Arrival Date: 12/19/2024 Time: 15:49 Bed 19 Private MD: Diagnosis: Closed head injury, mechanical fall, right foot contusion, scalp hematoma, tongue laceration Presentation: 12/19 15:57 Chief complaint: Patient states: she tripped and fell earlier today and is complaining ap3 of pain to her whole right foot. patient currently rates her pain as a 10/10 on the pain scale. patient also complains of pain her her tongue and reports a laceration in the middle of her tongue after the fall. patient reports hitting the back of her head. patient reports brief LOC. patient denies being on blood thinners. Coronavirus screen: At this time, the client does not indicate any symptoms associated with coronavirus-19. Ebola Screen: No symptoms or risks identified at this time. Initial Sepsis Screen: Does the patient meet any 2 criteria? No. Patient's initial sepsis screen is negative. Does the patient have a suspected source of infection? No. Patient's initial sepsis screen is negative. Risk Assessment: Do you want to hurt yourself or someone else? Patient reports no desire to harm self or others. Onset of symptoms was December 19, 2024. 15:57 Method Of Arrival: Ambulatory ap3 16:04 Acuity: MORA 3 ap3 Triage Assessment: 16:02 General: Appears in no apparent distress. Behavior is calm, cooperative, appropriate ap3 for age. Pain: Complains of pain in right foot and tongue. EENT: laceration on tongue. Neuro: Level of Consciousness is awake, alert, obeys commands, Oriented to person, place, time, situation, Appropriate for age Speech is normal. Cardiovascular: Patient's skin is warm and dry. Respiratory: Airway is patent Respiratory effort is even, unlabored, Respiratory pattern is regular, symmetrical. Derm: Bruising that is on right foot. 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 Flu vaccine is not up to date. - Infectious Disease History:: Denies. - Social history:: Smoking status: Reported history of juuling and/or vaping. Screenin:03 Abuse screen: Denies threats or abuse. Nutritional screening: No deficits noted. ap3 Tuberculosis screening: No symptoms or risk factors identified. 18:20 [facility] ED Fall Risk Assessment (Adult) History of falling in the last 3 months, bp including since admission Yes- single mechanical fall (1 pt) Confusion or Disorientation No (0 pts) Intoxicated or Sedated No (0 pts) Impaired Gait No (0 pts) Mobility Assist Device Used No (0 pt) Altered Elimination No (0 pt) Score/Fall Risk Level 0 - 2 = Low Risk. Assessment: 16:00 General: Appears distressed, Behavior is cooperative, appropriate for age, anxious. bp Pain: Complains of pain in mouth and right foot and tongue. Neuro: No deficits noted. Cardiovascular: No deficits noted. Respiratory: No deficits noted. GI: No signs and/or symptoms were reported involving the gastrointestinal system. : No signs and/or symptoms were reported regarding the genitourinary system. EENT: No deficits noted. Derm: No deficits noted. Musculoskeletal: Reports pain in right foot. Vital Signs: 15:57 BP 120 / 63; Pulse 80; Resp 17; Temp 99; Pulse Ox 98% on R/A; Weight 39.92 kg; Height 5 ap3 ft. 0 in. ; Pain 10/10; 15:57 Body Mass Index 17.19 (39.92 kg, 152.4 cm) ap3 15:57 Pain Scale: Adult ap3 ED Course: 15:52 Patient arrived in ED. im 15:52 Jarod Dickerson MD is Attending Physician. sp3 16:00 Triage completed. ap3 16:03 Arm band placed on right wrist. ap3 16:25 Lewis Eddy, RN is Primary Nurse. bp 16:27 Patient has correct armband on for positive identification. bp 16:56 Foot Right 3 View XRAY In Process Unspecified. EDMS 17:37 CT Head Brain wo Cont In Process Unspecified. EDMS 18:20 Provided Education on: NA. bp 18:20 No provider procedures requiring assistance completed. Patient did not have IV access bp during this emergency room visit. Administered Medications: 16:38 Drug: HYDROcodone-acetaminophen PO 5 mg-325 mg 2 tabs PO once Route: PO; bp 18:03 Follow up: Response: No adverse reaction bp Medication: 18:21 VIS not applicable for this client. bp Outcome: 17:51 Discharge ordered by . [email or web address] 18:20 Discharged to home via wheelchair, with family, bp 18:20 Condition: stable 18:20 Discharge instructions given to patient, family, Instructed on discharge instructions, follow up and referral plans. medication usage, crutch walking, Demonstrated understanding of instructions, follow-up care, medications, crutch walking, Prescriptions given X 1, 18:21 Patient left the ED. bp Signatures: Dispatcher [employer] EDLewis Sanford RN RN bp Prokisch, Amanda, RN RN ap3 Jarod Dickerson MD MD sp3 Barbie Ewing Corrections: (The following items were deleted from the chart) 16:02 16:00 Allergies: Amoxicillin; ap3 ap3 16:02 16:00 Allergies: Azithromycin; ap3 ap3 16:02 16:00 Allergies: Trazodone; ap3 ap3 16:02 16:00 Allergies: Seroquel; ap3 ap3 16:05 15:57 Acuity: MORA 2 ap3 ap3
[2024-12-19 18:26] VITALS: BP 120/63; TEMP 99; O2SAT 98
== END 2024-12-19 18:21 | disposition home or self-care (01) ==
LOC: ER 15:49
DX: S01.512A Laceration without foreign body of oral cavity, initial encounter (principal); S90.31XA Contusion of right foot, initial encounter; W18.09XA Striking against other object with subsequent fall, initial encounter
CPT/HCPCS: 70450; 99283